=== PATIENT | male | born 1940 | race Caucasian/White ===

== ENCOUNTER 2016-07-25 15:09 | Emergency (ER) | payer MEDICARE, OTHER ==
[~2016-07-25] VITALS: Ht 177.8 cm; Wt 88.6 kg
[~2016-07-25 15:09] MED LIST: AMLO10 PO; CIAL5TAB PO; CLON0.1T PO; FERR325T PO; HYDR12.57 PO; LEVO.1 PO; MIRA25TA PO; OMEP20TA PO; REST30CA PO; TAMS5CAP PO; TRAM50TA PO
[2016-07-25 15:14] VITALS: BP 117/72; PULSE 88; RESP 16; TEMP 97.7; O2SAT 97
[2016-07-25] MEDS ORDERED: FURO1TAB62 PO (15:57)
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
[2016-10-03] MEDS ORDERED: CLON0.5T PO (11:26)
[2016-10-03] MEDS ORDERED: CARV12.52 PO (11:26)
[2016-10-03] MEDS ORDERED: DULO1CAP2 PO (11:26)
[2016-10-03] MEDS ORDERED: MIRT30TA PO (11:26)
[2016-10-03] MEDS ORDERED: POTA10TA2 PO (11:27)
[2016-10-03] MEDS ORDERED: FERR324T8 PO (11:27)
[2016-10-03] MEDS ORDERED: MIRA25TA PO (12:28)
[2016-10-03] MEDS ORDERED: HYDR2.5%T RECTAL (12:28)
[2016-10-17] MEDS ORDERED: AMLO5TAB2 PO (14:03)
== END 2016-07-25 16:35 | disposition home or self-care (01) ==
LOC: PHED 15:09
DX: S51.012A Laceration without foreign body of left elbow, initial encounter (principal); V00.831A Fall from motorized mobility scooter, initial encounter; Y92.531 Health care provider office as the place of occurrence of the external cause
CPT/HCPCS: 99282

== ENCOUNTER 2016-12-21 10:51 | Emergency (ER) | payer MEDICARE, OTHER ==
[~2016-12-21] VITALS: Ht 170.2 cm; Wt 100.0 kg
[~2016-12-21 10:51] MED LIST changes: -AMLO10 PO; +AMLO5TAB2 PO; +CARV12.52 PO; -CIAL5TAB PO; -CLON0.1T PO; +DULO1CAP2 PO; -FERR325T PO; -HYDR12.57 PO; +HYDR2.5%T RECTAL; +MIRT30TA PO; +POTA10TA2 PO; -TRAM50TA PO
[2016-12-21 10:55] VITALS: BP 128/66; PULSE 69; RESP 18; O2SAT 98
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
[2016-12-21] MEDS ORDERED: BUPIVACAINE HCL PF 0.5% 10 ML VIAL INFIL ONE (11:45)
[2016-12-21] MEDS ORDERED: LIDOCAINE HCL 1% 20 ML VIAL INFIL ONE (11:45)
[2016-12-21 11:52] LABS: AUTOMATED NEUTROPHIL # 7.4 TH/MM3 (1.8-7.7); BASOPHIL # 0.1 TH/MM3 (0-0.2); BASOPHIL % 0.9 % (0.0-2.0); EOSINOPHIL % 0.2 % (0.0-4.0); HEMATOCRIT 27.1 % (39.0-51.0); LYMPH % 12.6 % (9.0-44.0); LYMPHOCYTE # 1.1 TH/MM3 (1.0-4.8); MEAN CELL VOLUME 91.1 FL (80.0-100.0); MEAN CORPUSCULAR HEMOGLOBIN 29.7 PG (27.0-34.0); MEAN CORPUSCULAR HGB CONC 32.6 % (32.0-36.0); MONO % 5.3 % (0.0-8.0); PLATELET COUNT 118 TH/MM3 (150-450); RED BLOOD COUNT 2.98 MIL/MM3 (4.50-5.90); RED CELL DISTRIBUTION WIDTH 19.4 % (11.6-17.2); WHITE BLOOD COUNT 9.1 TH/MM3 (4.0-11.0)
[2016-12-21] MEDS ORDERED: BENA20TA PO (11:59)
[2016-12-21] MEDS ORDERED: FERR325T8 PO (11:59)
[2016-12-21] MEDS ORDERED: CALC500T35 PO (11:59)
[2016-12-21] MEDS ORDERED: AMLO2.5T PO (11:59)
[2016-12-21] MEDS ORDERED: MIRA3350 PO (11:59)
[2016-12-21] MEDS ORDERED: ASPI325T PO (12:00)
[2016-12-21 12:02] LABS: HEMO FLAGS AUTO DIFF
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
[2016-12-21 12:10] LABS: ALT (GPT) 29 U/L (12-78); ANION GAP 8 MEQ/L (5-15); AST (GOT) 36 U/L (15-37); BICARBONATE 23.4 MEQ/L (21.0-32.0); BLOOD UREA NITROGEN 35 MG/DL (7-18); CHLORIDE 111 MEQ/L (98-107); GLOMERULAR FILTRATION RATE 28 ML/MIN (>89); POTASSIUM 4.1 MEQ/L (3.5-5.1); SODIUM (NA) 142 MEQ/L (136-145)
[2016-12-21 12:12] LABS: ALKALINE PHOSPHATASE 227 U/L (45-117); TOTAL BILIRUBIN ADULT 0.3 MG/DL (0.2-1.0)
[2016-12-21 12:27] LABS: PLATELET ESTIMATE SMEAR LOW (NORMAL); PLATELET MORPHOLOGY ENLARGED (NORMAL); SCAN/DIFF AUTO DIFF CONFIRMED
[2016-12-21] MEDS ORDERED: MORPHINE SULFATE 4 MG/ML INJ IV PUSH ONE ×2 (12:45→14:00)
[2016-12-21 13:15] LABS: APTT (PATIENT) 27.7 SEC (24.3-30.1); INTERNATIONAL NORMALIZED RATIO 0.9 RATIO; PROTHROMBIN TIME - PATIENT 10.2 SEC (9.8-11.6)
[2016-12-21] MEDS ORDERED: SODIUM CHLOR 0.9% 250 ML INJ 250 ML IV ONE (13:15)
[2016-12-21] MEDS ORDERED: NORC5TAB PO (15:24)
[2016-12-21] MEDS ORDERED: CEPH-460 PO (15:26)
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
--- NOTE | 2016-12-26 08:51 | MP ---
cc: DIXIE MICHAELS M.D. DATE OF SURGERY 12/21/2016 PREOPERATIVE DIAGNOSIS An 8-cm laceration to the right ear. POSTOPERATIVE DIAGNOSIS An 8-cm laceration to the right ear. PROCEDURES Repair of laceration to right ear. ANESTHESIA Local. SURGEON Dixie Michaels MD INDICATIONS A 76-year-old male with injury to his right ear. FINDINGS At the completion of the procedure the wound had been repaired and dressed. OPERATIVE TIME One hour. PROCEDURE The operation was performed in the emergency room. The patient was placed on his side. The right ear was prepped with Betadine and draped the usual sterile fashion. Bupivacaine 0.5% plain with epinephrine was used to anesthetize the entire area. Once the anesthetic had taken effect, the wound was copiously irrigated with saline. The areas which had been lacerated were initially coapted using stay sutures to line up the border of the ear. The cartilage was completely lacerated. The wound was then repaired anteriorly and posteriorly using 6-0 and 5-0 nylon and Prolene sutures. This was done in interrupted and running fashion. Once the wound was completely repaired it was cleansed of the Betadine and blood and dressed with povidone-iodine ointment, Adaptic, 4x4s and a head bandage. The patient was discharge in satisfactory condition having tolerated the procedure well. Postoperative instructions include keeping the head elevated, keeping the area clean and dry and returning in several days for wound check. MD ANA ePrez/BRISSA /10:43 AM /8:41 AM [facility]
== END 2016-12-21 16:08 | disposition home or self-care (01) ==
LOC: NEPC 10:51
DX: S08.121A Partial traumatic amputation of right ear, initial encounter (principal); S01.01XA Laceration without foreign body of scalp, initial encounter; E78.5 Hyperlipidemia, unspecified; E03.9 Hypothyroidism, unspecified; I10 Essential (primary) hypertension; I25.10 Atherosclerotic heart disease of native coronary artery without angina pectoris; W05.2XXA Fall from non-moving motorized mobility scooter, initial encounter; Z79.82 Long term (current) use of aspirin
CPT/HCPCS: 13152; 13153; 70450; 80053; 85025; 85610; 85730; 86077; 86850; 86870; 86880; 86900; 86901; 86902; 96374; 96376; 99285; J2270; J7050

== ENCOUNTER 2017-01-29 18:53 | Inpatient (IN) | payer MEDICARE, OTHER ==
[~2017-01-29] VITALS: Ht 170.2 cm; Wt 103.0 kg
[~2017-01-29 18:53] MED LIST changes: +AMLO2.5T PO; -AMLO5TAB2 PO; +ASPI325T PO; +BENA20TA PO; +CALC500T35 PO; -DULO1CAP2 PO; +FERR325T8 PO; +MIRA3350 PO; -POTA10TA2 PO; -TAMS5CAP PO
[2017-01-29 19:05] VITALS: BP 153/73; PULSE 105; RESP 24; TEMP 100.1; O2SAT 93
--- NOTE | 2017-01-29 19:29 | PD ---
HPI Chief Complaint: Abdominal Pain Time Seen by Provider: 19:18 Travel History International Travel<30 days: No Contact w/Intl Traveler<30days: No Traveled to known affect area: No History of Present Illness HPI The patient is a 76 year old male who presents to the [facility] emergency department with a history of abdominal pain that reportedly according to ambulance services began 2 hours prior to arrival. The patient himself is unsure exactly when it began. The patient denies having any abdominal pain currently. The patient had one episode of vomiting prior to arrival. The patient does have a history of mild dementia according to ambulance services. The patient lives at home with a caregiver. The patient was noted prior to arrival to have a fever with a MAXIMUM TEMPERATURE of 102. The patient also was noted to have room air saturations are 91%. He reports that he has had a cough intermittently throughout the day today. According to ambulance services the patient has also had some constipation. He did move his bowels in small amount today. They report that his abdomen appears distended and rigid. The patient on arrival is pleasant and cooperative. On review of systems, the patient denies having any neck pain, chest pain, shortness of breath, diarrhea, urinary symptoms, or neurologic symptoms. The patient reports having chronic urinary incontinence. [facility] Past Medical History Narrative Medical The patient's past medical history is significant for hyperlipidemia, coronary artery disease, hypertension, history of Holland's esophagitis, acid reflux, diverticulitis, hypothyroid disorder, osteoarthritis Arthritis: Yes Autoimmune Disease: No Blood Disorders: No Heart Rhythm Problems: No Cancer: Yes (PROSTATE) Cardiovascular Problems: Yes High Cholesterol: Yes Chest Pain: No Congestive Heart Failure: No Cerebrovascular Accident: No Coronary Artery Disease: Yes Diabetes: No Diminished Hearing: Yes (BILATERAL HEARING AIDS) Endocrine: Yes Gastrointestinal Disorders: Yes (HOLLAND'S ESOPHAGUS, ACID REFLUX,GERD, DIVERTICULITIS) GERD: Yes Genitourinary: Yes (HX PROSTATE CANCER, INCONTINENCE) Headaches: Yes Hepatitis: No Hiatal Hernia: Yes Heparin Induced Thrombocytopen: No Hypertension: Yes Immune Disorder: No Implanted Vascular Access Dvce: No Musculoskeletal: Yes (OSTEOARTHRITIS , SPINAL STENOSIS) Neurologic: Yes (WEAK THIS VISIT) Psychiatric: No Reproductive: No Respiratory: No Immunizations Current: Yes Radiation Therapy: Yes (HX OF SEEDS) Sickle Cell Disease: No Thyroid Disease: Yes Ulcer: No Past Surgical History Narrative Surgical The patient's past surgical history is significant for bilateral hip replacements, surgery related to spinal stenosis, history of prostate seed placement related to prostate cancer, knee replacement, left carotid endarterectomy AICD: No Arteriovenous Shunt: No Endocrine Surgery: Yes (THYROIDECTOMY 2002) Eye Surgery: Yes (BILATERAL CATARACTS) Genitourinary Surgery: Yes (PROSTATE SEEDS) Insulin Pump: No Joint Replacement: Yes (TOTAL LEFT KNEE) Neurologic Surgery: Yes (LEFT CAROTID ARTERY ENDARTERECTOMY 1999) Pacemaker: No Thoracic Surgery: Yes (SPINAL STENOSIS SURGERY IN NOVEMBER) Other Surgery: Yes (KNEE REPLACEMENT , CAROTID ARTERY ) Social History Alcohol Use: Yes (" 1-3 BOURBONS A NIGHT" ) Tobacco Use: No Substance Use: No Allergies-Medications (Allergen,Severity, Reaction): Coded Allergies: hydrocodone (Verified Allergy, Severe, 12/29/16) adhesive (Verified Allergy, Unknown, 12/29/16) pt to pacu with redness noted to skin per computer numerical control operator pt appears to have allergy to adhesive tape spoke with pt, pt aware md made aware per computer numerical control operator, skin intact, per computer numerical control operator site to l chest area improving after pads removed Reported Meds & Prescriptions Reported Meds & Active Scripts Active Myrbetriq (Mirabegron) 25 Mg Tab 25 Mg PO DAILY Restoril (Temazepam) 30 Mg Cap 30 Mg PO HS PRN Reported Aspirin Unknown Strength Tab 1 Tab PO DAILY Miralax Powder (Polyethylene Glycol 3350 Powder) 17 Gm Powd 17 Gm PO EVERY OTHER DAY Mix and dissolve one measuring cap-ful (17 grams) in water or juice. Ferrous Sulfate 325 Mg (65 Mg Iron) Tablet 325 Mg PO DAILY Benazepril (Benazepril HCl) 20 Mg Tab 20 Mg PO DAILY Calcium (Oyster Shell) 500 Mg Tab 500 Mg PO BID Carvedilol 12.5 Mg Tab 6.25 Mg PO BID Mirtazapine 30 Mg Tab 30 Mg PO HS Omeprazole 20 Mg Tab 20 Mg PO DAILY Review of Systems Except as stated in HPI: all other systems reviewed are Neg General / Constitutional: Positive: Fever Eyes: No: Visual changes HENT: Positive: Congestion, No: Headaches Cardiovascular: No: Chest Pain or Discomfort Respiratory: Positive: Cough, No: Shortness of Breath Gastrointestinal: Positive: Nausea, Vomiting, Abdominal Pain, Constipation, Changes in Bowel Habits, No: Indigestion, Loss of Appetite Genitourinary: No: Dysuria Musculoskeletal: No: Pain Skin: No Rash Neurologic: No: Weakness, Focal Abnormalities, Change in Mentation, Slurred Speech, Sensory Disturbance Psychiatric: No: Depression Endocrine: No: Polydipsia Hematologic/Lymphatic: No: Easy Bruising Physical Exam Narrative General: The patient is a well-developed well-nourished male in no acute distress. Head and Neck exam: Head is normocephalic atraumatic. Eyes: EOMI, pupils are equal round and reactive to light. Nose: Midline septum with pink mucous membranes Mouth: Dentition unremarkable. Moist mucus membranes. Posterior oropharynx is not erythematous. No tonsillar hypertrophy. Uvula midline. Airway patent. Neck: No palpable lymphadenopathy. No nuchal rigidity. No thyromegaly. Cardiovascular: Sinus tachycardia in the low 100 with a 1/6 systolic murmur. No gallops or rubs. No pulse deficit to the extremities and simultaneous auscultation and palpation of his radial artery. Lungs: Clear to auscultation bilaterally. No wheezes, rhonchi, or rales. Abdomen: Distended with no tenderness on palpation of all 4 quadrants of the abdomen, decreased bowel sounds are audible. No guarding, rebound, or rigidity. No tenderness on palpation of McBurney's point. Negative Hyman's sign. Extremities: No clubbing or cyanosis. The patient has trace pedal edema bilateral lower extremities. 2+ pulses in all 4 extremities. No calf tenderness on palpation. Back: No costovertebral angle tenderness to palpation. Neurologic Exam: Grossly nonfocal. Skin Exam: No rash noted. Intact skin that is warm and dry. Data Data Last Documented VS Vital Signs Date Time Temp Pulse Resp B/P (MAP) Pulse Ox O2 Delivery O2 Flow Rate FiO2 01/29/17 19:50 98.9 72 20 125/70 (88) 100 2.00 Orders Orders Electrocardiogram (01/29/17 19:19) Complete Blood Count With Diff (01/29/17 19:19) Comprehensive Metabolic Panel (01/29/17 19:19) Troponin I (01/29/17 19:19) B-Type Natriuretic Peptide (01/29/17 19:19) Prothrombin Time / Inr (Pt) (01/29/17 19:19) Act Partial Throm Time (Ptt) (01/29/17 19:19) C-Reactive Protein (Crp) (01/29/17 19:19) Lipase (01/29/17 19:19) Urinalysis - C+S If Indicated (01/29/17 19:19) Magnesium (Mg) (01/29/17 19:19) Chest, Single Ap (01/29/17 19:19) Iv Access Insert/Monitor (01/29/17 19:19) Ecg Monitoring (01/29/17 19:19) Oximetry (01/29/17 19:19) Sodium Chlor 0.9% 250 Ml Inj (Ns 250 Ml (01/29/17 19:30) Sodium Chlor 0.9% 1000 Ml Inj (Ns 1000 M (01/29/17 19:30) Ondansetron Inj (Zofran Inj) (01/29/17 19:30) Acetaminophen (Tylenol) (01/29/17 19:30) Piperacil-Tazo 3.375 Gm Premix (Zosyn 3. (01/29/17 21:15) Vancomycin Inj (Vancomycin Inj) (01/29/17 21:15) Admit Order (Ed Use Only) (01/29/17 21:39) Ct Abd/Pel W/O Iv Contrast (01/29/17 19:19) Labs Laboratory Tests Test 01/29/17 19:50 White Blood Count 11.6 TH/MM3 Red Blood Count 3.25 MIL/MM3 Hemoglobin 9.6 GM/DL Hematocrit 29.4 % Mean Corpuscular Volume 90.6 FL Mean Corpuscular Hemoglobin 29.6 PG Mean Corpuscular Hemoglobin Concent 32.7 % Red Cell Distribution Width 19.0 % Platelet Count 136 TH/MM3 Mean Platelet Volume 6.5 FL Neutrophils (%) (Auto) 91.6 % Lymphocytes (%) (Auto) 3.8 % Monocytes (%) (Auto) 4.2 % Eosinophils (%) (Auto) 0.0 % Basophils (%) (Auto) 0.4 % Neutrophils # (Auto) 10.6 TH/MM3 Lymphocytes # (Auto) 0.4 TH/MM3 Monocytes # (Auto) 0.5 TH/MM3 Eosinophils # (Auto) 0.0 TH/MM3 Basophils # (Auto) 0.1 TH/MM3 CBC Comment DIFF FINAL Differential Comment Prothrombin Time 10.3 SEC Prothromb Time International Ratio 0.9 RATIO Activated Partial Thromboplast Time 25.2 SEC Blood Urea Nitrogen 34 MG/DL Creatinine 2.35 MG/DL Random Glucose 99 MG/DL Total Protein 8.2 GM/DL Albumin 3.5 GM/DL Calcium Level 8.3 MG/DL Magnesium Level 1.9 MG/DL Alkaline Phosphatase 200 U/L Aspartate Amino Transf (AST/SGOT) 45 U/L Alanine Aminotransferase (ALT/SGPT) 24 U/L Total Bilirubin 0.5 MG/DL Sodium Level 142 MEQ/L Potassium Level 3.8 MEQ/L Chloride Level 107 MEQ/L Carbon Dioxide Level 22.4 MEQ/L Anion Gap 13 MEQ/L Estimat Glomerular Filtration Rate 27 ML/MIN Troponin I LESS THAN 0.02 NG/ML C-Reactive Protein 2.30 MG/DL B-Type Natriuretic Peptide 89 PG/ML Lipase 51 U/L MDM Medical Decision Making Medical Screen Exam Complete: Yes Emergency Medical Condition: Yes Medical Record Reviewed: Yes Interpretation(s) Last Impressions Chest X-Ray 01/29/171918 Signed Impressions: Service Date/Time: Sunday, January 29, 2017 19:42 - CONCLUSION: Partially consolidative infiltrate in the left lower lobe. Mason Coelho MD Abdomen/Pelvis CT 01/29/171918 Signed Impressions: Service Date/Time: Sunday, January 29, 2017 21:58 - CONCLUSION: 1. Stable appearance to the 4.3 cm smooth margin cyst adjacent to the head of the pancreas. 2. Stable small hiatus hernia. 3. No acute findings. Mason Coelho MD Differential Diagnosis Bowel obstruction, versus diverticulitis, versus colitis, versus constipation, versus ileus Narrative Course During the course of the patients emergency department visit, the patients history, examination, and differential diagnosis were reviewed with the patient. The patient had IV access obtained and blood work sent for analysis. The patient states on a radiographer cardiac catheterization with oximetry and blood pressure monitoring. A chest x-ray has been ordered, CT scan of the abdomen and pelvis has been ordered. The patient had an ECG done on arrival. The patient's ECG reveals a sinus tachycardia with a first-degree AV block, incomplete right bundle branch block, left anterior fascicular block, no acute ST segment elevation or depression, T waves are inverted in V1. The patient was initially provided normal saline IV fluids, Zofran 4 mg IV, Tylenol for fever. The patient was provided a liter of normal saline by ambulance services prior to arrival, therefore the patient was initially started on maintenance fluids in spite of a concern for the patient having positive Sirs criteria and an infectious source is wishes for sepsis as the patient does have a history of coronary artery disease and fluid overload was a possibility. The patient was started on Zosyn 3.375 g IV, vancomycin 1 g IV. The patients laboratory studies were reviewed and remarkable for a white count of 11.6, hemoglobin 9.6, platelets 136 with 91.6 neutrophils, CMP is remarkable for a BUN of 34, creatinine 2.35 in a patient with a history of renal insufficiency, calcium 8.3, AST 45, alkaline phosphatase 200, troponin I less than 0.02, CRP 2.30, lipase 51, BNP is 89. PT PTT within normal limits. Urinalysis shows moderate occult blood, moderate leukocyte esterase, 98 rbc's, 44 wbc's, rare bacteria, culture indicated. Radiology studies were reviewed and remarkable for a chest x-ray that is remarkable for a left lower lobe infiltrate, CT scan of the abdomen and pelvis shows a stable cystic structure next to the pancreas, no other acute abnormality. The patients results were discussed with the patient, including the plan of care. I explained that further testing and/ or monitoring is indicated based on the patients history, examination, and/ or laboratory findings. Therefore, I recommended admission for additional evaluation. The patient expressed understanding and was agreeable with this plan. The patient was admitted to the hospital in guarded condition and sent to a bed under the care of Dr. Silver. Sepsis Criteria SIRS Criteria (2 or more): Heart rate over 90, RR > 20 or PaCO2 < 32 Physician Communication Physician Communication The patient's case was discussed with Dr. Silver who did agree to admit the patient for further evaluation and treatment at this time. Diagnosis Primary Impression: Pneumonia Qualified Codes: J18.1 - Lobar pneumonia, unspecified organism Additional Impressions: Abdominal pain Qualified Codes: R10.84 - Generalized abdominal pain UTI (lower urinary tract infection) Admitting Information Admitting Physician Requests: Admit Phuong Nicolas MD Jan 29, 2017 19:29
[2017-01-29] MEDS ORDERED: SODIUM CHLOR 0.9% 1000 ML INJ 1,000 ML IV SCH (19:30)
[2017-01-29] MEDS ORDERED: SODIUM CHLOR 0.9% 250 ML INJ 250 ML IV ONE (19:30)
[2017-01-29] MEDS ORDERED: ONDANSETRON HCL 4 MG/2 ML VIAL IV PUSH ONE (19:30)
[2017-01-29] MEDS ORDERED: ACETAMINOPHEN 325 MG TAB PO ONE (19:30)
--- NOTE | 2017-01-29 19:49 | RADRPT ---
EXAM DATE/TIME: 01/29/2017 19:42 [facility] COMPARISON: CHEST SINGLE AP, October 13, 2014, 23:26. CHEST SINGLE AP, November 01, 2015, 14:13. INDICATIONS : Shortness of breath, congestion, abdominal pain and vomiting. MEDICAL HISTORY : Cardiovascular disease. Cerebrovascular disease. Hypercholesterolemia.Hypertension. Hiatal hernia. SURGICAL HISTORY : Carotid endarterectomy. Thyroidectomy. ENCOUNTER: Initial ACUITY: 1 day PAIN SCORE: 4/10 LOCATION: Bilateral abdomen. FINDINGS: There is patchy infiltrates in the retrocardiac region with air bronchograms, but no obscuration of t he left hemidiaphragm. The right lung is clear. 12 mm calcified granuloma lateral right upper lobe is unchanged from prior exam at 2014. The heart is normal size. CONCLUSION: Partially consolidative infiltrate in the left lower lobe. Mason Coelho MD on January 29, 2017 at 19:46 Board Certified Radiologist. This report was verified electronically.
[2017-01-29 19:50] VITALS: BP 125/70; TEMP 98.9
[2017-01-29 20:32] LABS: AUTOMATED NEUTROPHIL # 10.6 TH/MM3 (1.8-7.7); BASOPHIL # 0.1 TH/MM3 (0-0.2); BASOPHIL % 0.4 % (0.0-2.0); HEMATOCRIT 29.4 % (39.0-51.0); HEMO FLAGS DIFF FINAL; LYMPH % 3.8 % (9.0-44.0); LYMPHOCYTE # 0.4 TH/MM3 (1.0-4.8); MEAN CELL VOLUME 90.6 FL (80.0-100.0); MEAN CORPUSCULAR HEMOGLOBIN 29.6 PG (27.0-34.0); MEAN CORPUSCULAR HGB CONC 32.7 % (32.0-36.0); MONO % 4.2 % (0.0-8.0); NEUT % 91.6 % (16.0-70.0); PLATELET COUNT 136 TH/MM3 (150-450); RED BLOOD COUNT 3.25 MIL/MM3 (4.50-5.90); WHITE BLOOD COUNT 11.6 TH/MM3 (4.0-11.0)
[2017-01-29 20:47] LABS: APTT (PATIENT) 25.2 SEC (24.3-30.1); INTERNATIONAL NORMALIZED RATIO 0.9 RATIO; PROTHROMBIN TIME - PATIENT 10.3 SEC (9.8-11.6)
[2017-01-29 20:54] LABS: ALT (GPT) 24 U/L (12-78)
[2017-01-29 20:57] LABS: ALKALINE PHOSPHATASE 200 U/L (45-117); TOTAL BILIRUBIN ADULT 0.5 MG/DL (0.2-1.0)
[2017-01-29 21:07] LABS: ANION GAP 13 MEQ/L (5-15); AST (GOT) 45 U/L (15-37); BICARBONATE 22.4 MEQ/L (21.0-32.0); BLOOD UREA NITROGEN 34 MG/DL (7-18); CHLORIDE 107 MEQ/L (98-107); GLOMERULAR FILTRATION RATE 27 ML/MIN (>89); MAGNESIUM 1.9 MG/DL (1.5-2.5); POTASSIUM 3.8 MEQ/L (3.5-5.1); SODIUM (NA) 142 MEQ/L (136-145)
[2017-01-29] MEDS ORDERED: PIPERACIL-TAZO 3.375 GM PREMIX 50 ML IV ONE (21:15)
[2017-01-29] MEDS ORDERED: VANCOMYCIN INJ 1,000 MG in SODIUM CHLOR 0.9% 250 ML INJ 250 ML IV ONE (21:15)
--- NOTE | 2017-01-29 22:32 | RADRPT ---
EXAM DATE/TIME: 01/29/2017 21:58 [facility] COMPARISON: CT ABDOMEN & PELVIS W/O CONTRAST, February 04, 2015, 17:50. INDICATIONS : Abdominal pain. ORAL CONTRAST: No oral contrast ingested. RADIATION DOSE: 25.87 CTDIvol (mGy) ; Patient body habitus MEDICAL HISTORY : Cardiovascular disease. Hypertension. Prostate cancer. Spinal stenosis. SURGICAL HISTORY : Endartectomy. ENCOUNTER: Initial ACUITY: 1 day PAIN SCALE: 6/10 LOCATION: abdomen TECHNIQUE: Volumetric scanning of the abdomen and pelvis was performed. Using automated exposure control and ad justment of the mA and/or kV according to patient size, radiation dose was kept as low as reasonably achievable to obtain optimal diagnostic quality images. DICOM format image data is available electro nically for review and comparison. FINDINGS: LOWER LUNGS: The visualized lower lungs are clear. Stable small hiatus hernia. LIVER: Homogeneous density without lesion for noncontrast technique. There is no dilation of the biliary tr ee. No calcified gallstones. SPLEEN: Normal size without lesion. PANCREAS: Stable smooth margin cyst adjacent to the uncinate process of the pancreas with CT density characteri stic of water and measuring 4.3 cm. There is fatty atrophy of the head, body and tail of the pancrea s. KIDNEYS: Normal in size and shape. There is no mass, stone, or hydronephrosis. Stable exophytic 1.6 cm hyper dense cyst mid pole right kidney. ADRENAL GLANDS: Within normal limits. VASCULAR: There is no aortic aneurysm. BOWEL/MESENTERY: No dilated loops of small or large bowel. ABDOMINAL WALL: Within normal limits. RETROPERITONEUM: There is no lymphadenopathy. BLADDER: No wall thickening or mass. REPRODUCTIVE: Multiple metallic prostate seeds. INGUINAL: There is no lymphadenopathy or hernia. MUSCULOSKELETAL: Stable degenerative changes in the posterior elements of the lower lumbar spine. CONCLUSION: 1. Stable appearance to the 4.3 cm smooth margin cyst adjacent to the head of the pancreas. 2. Stable small hiatus hernia. 3. No acute findings. Mason Coelho MD on January 29, 2017 at 22:26 Board Certified Radiologist. This report was verified electronically.
[2017-01-29] MEDS ORDERED: THIAMINE IV SCH (22:36)
[2017-01-29] MEDS ORDERED: SODIUM CHLOR 0.45% IV SCH (22:36)
[2017-01-29] MEDS ORDERED: NALOXONE HCL 0.4 MG/ML AMP IV PUSH PRN (22:45)
[2017-01-29] MEDS ORDERED: MAGNESIUM HYDROXIDE SUSP 30 ML CUP PO PRN (22:45)
[2017-01-29] MEDS ORDERED: SODIUM CHLORIDE 0.9% FLUSH 10 ML FLUSH IV FLUSH PRN (22:45)
[2017-01-29] MEDS ORDERED: cloNIDine HCL 0.1 MG TAB PO PRN (23:00)
[2017-01-30] VITALS (15 sets, daily range): BP systolic 124–142; BP diastolic 63–76; PULSE 61–80; RESP 16–20; TEMP 97.7–100.1; O2SAT 93–100
[2017-01-30] MEDS: traZODone HCL 100 MG TAB PO SCH ×2 (00:45→21:33)
[2017-01-30] MEDS: ENOXAPARIN SODIUM 30 MG/0.3 ML SYRINGE SQ SCH ×2 (00:45→23:44)
[2017-01-30] MEDS: CARVEDILOL 6.25 MG TAB PO SCH ×3 (00:45→21:34)
[2017-01-30] MEDS: MIRTAZAPINE 15 MG TAB PO SCH ×2 (00:45→21:33)
[2017-01-30] MEDS: LEVOFLOXACIN 500 MG PREMIX INJ 100 ML IV SCH ×2 (00:47→23:44)
[2017-01-30] MEDS: clonazePAM 0.5 MG TAB PO SCH ×4 (00:50→21:33)
[2017-01-30] MEDS: SODIUM CHLORIDE 0.9% FLUSH 10 ML FLUSH IV FLUSH SCH ×3 (02:58→21:33)
[2017-01-30] MEDS: LEVOTHYROXINE SODIUM 25 MCG TAB PO SCH (06:51)
[2017-01-30] MEDS: LEVOTHYROXINE SODIUM 112 MCG TAB PO SCH (06:52)
[2017-01-30 07:28] LABS: AUTOMATED NEUTROPHIL # 8.1 TH/MM3 (1.8-7.7); BASOPHIL # 0.1 TH/MM3 (0-0.2); BASOPHIL % 1.1 % (0.0-2.0); EOSINOPHIL % 0.1 % (0.0-4.0); HEMO FLAGS DIFF FINAL; LYMPH % 11.2 % (9.0-44.0); LYMPHOCYTE # 1.1 TH/MM3 (1.0-4.8); MEAN CELL VOLUME 91.9 FL (80.0-100.0); MEAN CORPUSCULAR HGB CONC 33.7 % (32.0-36.0); MONO % 4.6 % (0.0-8.0); PLATELET COUNT 112 TH/MM3 (150-450); RED BLOOD COUNT 2.72 MIL/MM3 (4.50-5.90); RED CELL DISTRIBUTION WIDTH 18.9 % (11.6-17.2); WHITE BLOOD COUNT 9.8 TH/MM3 (4.0-11.0)
[2017-01-30] MEDS: LORazepam 0.5 MG TAB PO SCH ×3 (07:51→23:43)
[2017-01-30 08:01] LABS: BICARBONATE 23.2 MEQ/L (21.0-32.0); POTASSIUM 3.4 MEQ/L (3.5-5.1)
[2017-01-30] MEDS ORDERED: [UNRECOGNIZED DRUG - OTHER] PO SCH (09:00)
[2017-01-30] MEDS ORDERED: MIRABEGRON PO SCH (09:00)
--- NOTE | 2017-01-30 09:11 | MH ---
cc: SANTOS BRAR M.D. DATE OF ADMISSION: 01/29/2017 ADMISSION DIAGNOSIS Pneumonia. HISTORY OF PRESENT ILLNESS This 76-year-old white male, well-known to the undersigned physician, presented to the emergency department on the day of admission with a complaint of a wheeze. He states that he had no chest pain, no shortness of breath, palpitations, fever, chills, night sweats, nausea, vomiting, headache, weakness, diminished appetite. He has had some constipation recently but took a laxative and had a large bowel movement overnight. The patient resides at home with 24-hour caregivers due to some mild dementia and limited mobility. He also has an alcohol abuse problem for which he is receiving treatment through an student career development specialist. The patient has continues to consume 2-4 ounces of alcohol and a day. PAST MEDICAL HISTORY Significant for - 1. History of lower gastrointestinal hemorrhage in 2013 requiring transfusions. 2. History of osteoarthritis. 3. History of prostate cancer with radium seed implants. 4. He has chronic urinary incontinence for which he sees Urology. 5. He has gastroesophageal reflux disease. 6. Hypertension. 7. Postsurgical hypothyroidism. 8. Chronic kidney disease stage III. 9. Insomnia. 10. Vitamin D deficiency. 11. Hyperlipidemia. 12. Gastroesophageal reflux disease with Henley's esophagus. 13. Lumbar disk disease with spinal stenosis. 14. Anemia due to chronic kidney disease. 15. Alcoholism. PAST SURGICAL HISTORY 1. Status post thyroidectomy in 2002. 2. Status post left carotid endarterectomy in 1999. 3. Status post left shoulder surgery in 2013. 4. Status post spinal surgery at the [facility] in 2015. CURRENT MEDICATIONS 1. Levofloxacin 137 mcg daily. 2. Duloxetine 30 mg daily. 3. Escitalopram 10 mg daily. 4. Mirtazapine 30 mg at bedtime. 5. Lorazepam 1 mg twice daily as needed for anxiety. 6. Clonazepam 0.5 mg twice daily. 7. Myrbetriq 25 mg daily. 8. Tamsulosin 0.4 mg at bedtime. 9. Rosuvastatin 20 mg daily. 10. Ferrous sulfate 325 mg twice daily. 11. Omeprazole 20 mg daily. 12. Carvedilol 6.25 mg twice. 13. Amlodipine 5 mg daily. 14. Potassium chloride ER 10 mEq daily. 15. Furosemide 20 mg daily. 16. Naltrexone 50 mg daily. ALLERGIES HYDROCODONE which caused itching. FAMILY HISTORY Noncontributory SOCIAL HISTORY He is . He lives at home. He has 24-hour caregivers. He does not smoke. He does drink alcohol. He has a history of alcohol abuse. He is currently drinking 2-4 ounces of alcohol daily but greater amounts intermittently. REVIEW OF SYSTEMS Negative except as outlined above. PHYSICAL EXAMINATION VITAL SIGNS: Upon arrival to the emergency department, blood pressure was 153/73 with a heart rate of 105, respirations 24, temperature 100.1 degrees Fahrenheit, oxygen saturation on room air was 93%. At the current time the patient's blood pressure is 133/69 with heart rate of 66, respirations are 20, temperature 98 degrees Fahrenheit. Oxygen saturation on 2 liters per minute per nasal cannula is 95%. GENERAL: In general this is a morbidly obese elderly white male lying in bed in no acute distress. HEENT: Pupils equal, round, react to light. Extraocular movements intact. Sclerae anicteric. Conjunctivae pink. Nares patent without discharge. Mouth reveals moist mucous membranes. No erythema or exudates. Dentition is good. NECK: Supple without lymphadenopathy, JVD, bruits or thyromegaly. CARDIOVASCULAR: Regular rate and rhythm without murmurs, rubs or gallops. LUNGS: Clear to auscultation without wheezes, rhonchi or rales. ABDOMEN: Obese, moderately distended, soft, nontender. Bowel sounds active. No masses. No HSM. No CVAT. & RECTAL: Deferred. LOWER EXTREMITIES: Reveal no appreciable edema. No calf tenderness. No Homans' sign. 2+ pulses. NEUROLOGIC EXAM: The patient is awake, alert, oriented to person and place but not to time. Speech intact. Cranial nerves intact. No lateralizing deficits. Mood good. Affect appropriate. The patient has some mild short-term memory deficits. The gait was not tested. SKIN: Warm and dry. LABORATORY DATA White blood cell count 11.6, hemoglobin 9.6, hematocrit 29.4, platelet count 136,000. White blood count differential with 91.6 polys and 30.8 lymphocytes. The INR is 0.9, APTT 25.2. The comprehensive metabolic profile is significant for a BUN of 34, creatinine of 2.35. The AST was mildly elevated at 45. Magnesium was normal at 1.9. C-reactive protein was 2.3. Troponin less than 0.02. Alkaline phosphatase elevated at 200, lipase low at 51. X-RAYS The chest x-ray revealed partially consolidated infiltrate in the left lower lobe. CT scan of the abdomen and pelvis revealed stable appearance of a 4.3 cm smooth margined cyst adjacent to the head of the pancreas, stable small hiatal hernia. No acute findings. EKG Revealed sinus tachycardia with a rate of 102 beats per minute, first-degree AV block, incomplete right bundle branch block, left anterior fascicular block. No prior EKG available at this time for comparison. IMPRESSION AND PLAN 1. This is a 76-year white male who presented with complaint of a wheeze and no other specific complaint. In the emergency department he was found to have a low grade temperature elevation, mildly elevated white blood cell count and a left lower lobe consolidation on chest x-ray. He will be admitted for pneumonia, placed on IV antibiotics. We will check a CT scan to further evaluate this left lower lobe infiltrative process. The patient currently appears to be stable. He was initially admitted into the step-down unit but we will transfer him to the floor today. I have provided him with some IV fluids as his BUN and creatinine are higher than they had been recently suggestive of some mild intravascular volume depletion. 2. Hypertension. The patient's blood pressure is under adequate control at this time with current medication regimen. We will follow. 3. Insomnia. The patient has chronic insomnia. He is currently receiving trazodone and clonazepam. He states he did sleep better last night. 4. History of chronic kidney disease Stage III. We will monitor BUN and creatinine. 5. Anemia due to chronic kidney disease. We will follow H&H. Anticipates some decrease due to dilutional effect. Recently the patient's hemoglobin has been closer to 8.7 so I anticipated a decrease over the next 24 hours with the IV fluids. He was scheduled to receive Procrit injection this week 6. Hypothyroidism. Recent TSH was elevated now. As an outpatient. His dosage of levofloxacin was just increased to 137 mcg daily. We will continue and plans are to check the laboratory studies again in about 6-8 weeks. 7. Gastroesophageal reflux disease with Henley's esophagus. The patient was placed on pantoprazole as omeprazole is not formulary. 8. History of alcohol abuse. The patient is going to be maintained on clonazepam I have increased his dose every 8 hours to help reduce the risk of withdrawal. I have given him thiamine in his IV fluids. We will add folic acid and will monitor for any other signs or symptoms of withdrawal. MD DIANNA Garcia/BRISSA /8:22 AM /8:46 AM
[2017-01-30] MEDS: LISINOPRIL 20 MG TAB PO SCH (10:40)
[2017-01-30] MEDS: DULoxetine HCl DR 30 MG CAP PO SCH (10:41)
[2017-01-30] MEDS: POTASSIUM CHLORIDE 10 MEQ CONTROLLED RELEASE TAB PO SCH ×2 (10:41→21:33)
[2017-01-30] MEDS: DOCUSATE SODIUM 50 MG/SENNA 8.6 MG TAB PO SCH ×2 (10:41→21:00)
[2017-01-30] MEDS: FOLIC ACID 1 MG TAB PO SCH (10:41)
[2017-01-30] MEDS: ASPIRIN 81 MG CHEW TAB PO SCH (10:41)
[2017-01-30] MEDS: POLYETHYLENE GLYCOL 17 GM PKG PO SCH (10:42)
[2017-01-30] MEDS: PANTOPRAZOLE SOD 40 MG DELAYED RELEASE TAB PO SCH (10:42)
[2017-01-30 18:24] LABS: BACTERIA, URINE RARE /hpf; BLOOD, URINE MOD (NEG); COMMENT (UR) CULTURE INDICATED; CULTURE IF INDICATED CULTURE INDICATED; GLUCOSE,URINE NEG (NEG); KETONE, URINE NEG (NEG); NITRITE,URINE NEG (NEG); URINE COLOR YELLOW (YELLW/STRAW)
--- NOTE | 2017-01-30 19:32 | EKG ---
Date Performed: 01/29/2017 Time Performed: 19:44:28 PTAGE: 76 years EKG: SINUS TACHYCARDIA WITH FIRST DEGREE AV BLOCK LOW QRS VOLTAGE IN PRECORDIAL LEADS INCOMPLETE RIGHT BUNDLE BRANCH BLOCK LEFT ANTERIOR FASCICULAR BLOCK POSSIBLE ANTERIOR MYOCARDIAL INFARCTION ABN ORMAL ECG PREVIOUS TRACING : 01/07/2016 07.41 Compared to prior tracing no significant change DOCTOR: Norman Wilson Interpretating Date/Time 01/30/2017 19:30:43
[2017-01-30] MEDS: TAMSULOSIN HCL 0.4 MG CAP PO SCH (21:33)
--- NOTE | 2017-01-30 22:15 | RADRPT ---
EXAM DATE/TIME: 01/30/2017 20:55 [facility] COMPARISON: CT ABDOMEN & PELVIS W/O CONTRAST, February 04, 2015, 17:50. INDICATIONS : Evaluate for pnuemonia. RADIATION DOSE: 9.13 CTDIvol (mGy) MEDICAL HISTORY : Hypertension. Carcinoma, prostate. Hernia, hiatal. SURGICAL HISTORY : Thyroidectomy. Carotid endarterectomy. Spinal stenosis surgery ENCOUNTER: Initial ACUITY: 1 day PAIN SCALE: 4/10 LOCATION: Bilateral chest TECHNIQUE: Volumetric scanning of the chest was performed. Using automated exposure control and adjustment of t he mA and/or kV according to patient size, radiation dose was kept as low as reasonably achievable to obtain optimal diagnostic quality images. DICOM format image data is available electronically for r eview and comparison. Follow-up recommendations for detected pulmonary nodules are based at a minimum on nodule size and pa tient risk factors according to Fleischner Society Guidelines. FINDINGS: LUNGS: There is increased linear density seen at the lung bases bilaterally likely relate to scarring or ate lectasis. There some metallic density at the lower right lung which could be from prior lung surgery if the patient has that history. If the patient has not had lung surgery, a these metallic densities could be prostate radiation seeds that have embolized the lungs. Focal areas of alveolar consolidatio n are not clearly seen. PLEURAE: There is no pleural thickening or pleural effusion. MEDIASTINUM: The heart and great vessels demonstrate no acute abnormality. There is no mediastinal or hilar lymph adenopathy. Coronary artery calcifications are present. AXILLAE: Within normal limits. No lymphadenopathy. MUSCULOSKELETAL: There is a focal area of sclerosis at the right posterior sixth rib and a smaller area of focal scler osis at the lateral right ninth rib. The focal lesion at the right ninth rib was seen on a prior CT e xamination the abdomen. The sixth rib lesion was not imaged on the prior CT of the abdomen. MISCELLANEOUS: The visualized upper abdominal organs demonstrate no acute abnormality. CONCLUSION: 1. Linear suspected atelectasis or scarring at the lung bases. 2. Small metallic foci at the right lung base which were present previously. These could be embolized prostate radiation seeds. Unusual lung jessica from prior lung surgery could have a similar appearan ce but embolized prostate radiation seeds are thought more likely. 3. Coronary artery calcifications. 4. 2 focal sclerotic rib lesions. The night rib lesion was seen previously on CT examination the abdo men. Kentrell Perez MD on January 30, 2017 at 22:05 Board Certified Radiologist. This report was verified electronically.
[2017-01-30] MEDS: AZITHROMYCIN INJ 500 MG in SODIUM CHLOR 0.9% 250 ML INJ 250 ML IV SCH (23:46)
[2017-01-31] VITALS (8 sets, daily range): BP systolic 125–168; BP diastolic 61–77; PULSE 62–70; RESP 18–20; TEMP 97.3–98.4; O2SAT 95–98
[2017-01-31] MEDS: AZITHROMYCIN INJ 500 MG in SODIUM CHLOR 0.9% 250 ML INJ 250 ML IV SCH (01:17)
[2017-01-31] MEDS: LEVOTHYROXINE SODIUM 25 MCG TAB PO SCH (06:47)
[2017-01-31] MEDS: LEVOTHYROXINE SODIUM 112 MCG TAB PO SCH (06:47)
[2017-01-31] MEDS: LORazepam 0.5 MG TAB PO SCH ×3 (06:47→22:31)
[2017-01-31] MEDS: clonazePAM 0.5 MG TAB PO SCH ×3 (06:47→22:31)
[2017-01-31 08:12] LABS: BASOPHIL # 0.1 TH/MM3 (0-0.2); BASOPHIL % 1.2 % (0.0-2.0); EOSINOPHIL % 0.3 % (0.0-4.0); HEMATOCRIT 25.3 % (39.0-51.0); LYMPH % 15.6 % (9.0-44.0); MEAN CELL VOLUME 91.1 FL (80.0-100.0); MEAN CORPUSCULAR HEMOGLOBIN 30.3 PG (27.0-34.0); MEAN CORPUSCULAR HGB CONC 33.3 % (32.0-36.0); MONO % 4.9 % (0.0-8.0); PLATELET COUNT 98 TH/MM3 (150-450); RED BLOOD COUNT 2.78 MIL/MM3 (4.50-5.90); RED CELL DISTRIBUTION WIDTH 18.6 % (11.6-17.2); WHITE BLOOD COUNT 6.4 TH/MM3 (4.0-11.0)
[2017-01-31 08:22] LABS: HEMO FLAGS AUTO DIFF
[2017-01-31 09:00] LABS: BICARBONATE 24.1 MEQ/L (21.0-32.0); POTASSIUM 3.7 MEQ/L (3.5-5.1)
[2017-01-31] MEDS: POLYETHYLENE GLYCOL 17 GM PKG PO SCH (09:00)
[2017-01-31] MEDS: DOCUSATE SODIUM 50 MG/SENNA 8.6 MG TAB PO SCH (09:00)
[2017-01-31] MEDS: LISINOPRIL 20 MG TAB PO SCH (09:06)
[2017-01-31] MEDS: CARVEDILOL 6.25 MG TAB PO SCH ×2 (09:06→20:17)
[2017-01-31] MEDS: [UNRECOGNIZED DRUG - OTHER] PO SCH (09:06)
[2017-01-31] MEDS: DULoxetine HCl DR 30 MG CAP PO SCH (09:06)
[2017-01-31] MEDS: PANTOPRAZOLE SOD 40 MG DELAYED RELEASE TAB PO SCH (09:06)
[2017-01-31] MEDS: FOLIC ACID 1 MG TAB PO SCH (09:06)
[2017-01-31] MEDS: POTASSIUM CHLORIDE 10 MEQ CONTROLLED RELEASE TAB PO SCH ×2 (09:06→20:16)
[2017-01-31] MEDS: ASPIRIN 81 MG CHEW TAB PO SCH (09:06)
[2017-01-31] MEDS: MIRABEGRON PO SCH (09:06)
[2017-01-31] MEDS: SODIUM CHLORIDE 0.9% FLUSH 10 ML FLUSH IV FLUSH SCH ×2 (09:07→20:18)
[2017-01-31 09:14] LABS: PLATELET ESTIMATE SMEAR LOW (NORMAL); PLATELET MORPHOLOGY NORMAL (NORMAL); SCAN/DIFF AUTO DIFF CONFIRMED
[2017-01-31 09:24] LABS: CALCIUM-PROTEIN CORRECTED 7.5 MG/DL (8.5-10.1)
--- NOTE | 2017-01-31 12:50 | HHI.PR ---
Subjective Remarks The patient reports that he has no chest pain, shortness of breath, nausea or vomiting. Oral intake is good. Having daily bowel movements. Was not out of bed yesterday as required max assist with bed mobility. Urine output is good. Denies dysuria. Blood pressure under adequate control. The patient's oxygen saturations in room air are adequate. Current Medications Medications (Trade) Dose Ordered Sig/Yovanny Route Start Time Stop Time Status Last Admin (NS Flush) 2 ml UNSCH PRN IV FLUSH 01/29/17 22:45 (NS Flush) 2 ml BID IV FLUSH 01/29/17 22:45 01/31/17 09:07 (Lovenox Inj) 30 mg Q24H SQ 01/29/17 23:00 01/30/17 23:44 (Narcan Inj) 0.4 mg UNSCH PRN IV PUSH 01/29/17 22:45 (Aurelia-Colace) 1 tab BID PO 01/30/17 09:00 01/30/17 10:41 (Milk Of Magnesia Liq) 30 ml Q12H PRN PO 01/29/17 22:45 (Miralax) 17 gm DAILY PO 01/30/17 09:00 01/30/17 10:42 Azithromycin 500 mg/Sodium Chloride 250 ml @ 250 mls/hr Q24H IV 01/30/17 00:00 01/31/17 01:17 Levofloxacin/ Dextrose 100 ml @ 100 mls/hr Q24H IV 01/29/17 23:00 01/30/17 23:44 (Ativan) 0.5 mg Q8HR PO 01/30/17 06:00 01/31/17 06:47 (KlonoPIN) 0.5 mg Q8HR PO 01/29/17 22:45 01/31/17 06:47 (Prinivil) 20 mg DAILY PO 01/30/17 09:00 01/31/17 09:06 (Coreg) 6.25 mg BID PO 01/29/17 22:45 01/31/17 09:06 (Remeron) 30 mg HS PO 01/29/17 22:45 01/30/17 21:33 (Aspirin Chew) 81 mg DAILY PO 01/30/17 09:00 01/31/17 09:06 (Synthroid) 112 mcg DAILY@0700 PO 01/30/17 07:00 01/31/17 06:47 (Protonix) 40 mg DAILY PO 01/30/17 09:00 01/31/17 09:06 (Desyrel) 100 mg HS PO 01/29/17 23:00 01/30/17 21:33 (Cymbalta Dr) 30 mg DAILY PO 01/30/17 09:00 01/31/17 09:06 (Flomax) 0.4 mg HS PO 01/30/17 21:00 01/30/17 21:33 (Catapres) 0.1 mg Q6H PRN PO 01/29/17 23:00 (Synthroid) 25 mcg DAILY@0700 PO 01/30/17 07:00 01/31/17 06:47 (KCl) 10 meq BID PO 01/30/17 09:00 01/31/17 09:06 (Folate) 1 mg DAILY PO 01/30/17 09:00 01/31/17 09:06 Patient Own Medication PT OWN MED: MYRBETRIQ (MIRABEGR... DAILY PO 01/31/17 09:00 01/31/17 09:06 Objective Vital Signs Date Time Temp Pulse Resp B/P (MAP) Pulse Ox O2 Delivery O2 Flow Rate FiO2 01/31/17 08:00 97.5 65 20 168/74 (105) 97 01/31/17 08:00 65 01/31/17 08:00 Room Air 01/31/17 00:49 95 01/31/17 00:00 97.7 62 18 125/61 (82) 96 01/31/17 00:00 97.3 70 18 156/74 (101) 97 01/30/17 20:00 98.2 62 20 124/63 (83) 96 01/30/17 20:00 Room Air 01/30/17 20:00 61 01/30/17 16:30 68 01/30/17 16:00 100.1 73 18 142/66 (91) 94 01/30/17 14:00 68 01/30/17 13:00 70 I/O 01/30/17 01/30/17 01/30/17 01/31/17 01/31/17 01/31/17 07:00 15:00 23:00 07:00 15:00 23:00 Intake Total 1325 ml 400 ml 590 ml Balance 1325 ml 400 ml 590 ml Intake Oral 240 ml 240 ml IV Total 1085 ml 400 ml 350 ml # Voids 2 2 3 # Bowel Movements 1 3 2 General: Morbidly obese elderly white male lying in bed in no acute distress Cardiovascular examination revealed regular rate and rhythm Lungs are clear to auscultation without wheezes, rhonchi or rales Abdomen is obese, soft, nontender with mild distention Lower extremities reveal no appreciable edema. No calf tenderness or Homans sign Result Diagram: 01/31/1772101/31/17 07 Imaging Last [address] 01/30/17 0000 Signed Impressions: Service Date/Time: Monday, January 30, 2017 20:55 - CONCLUSION: 1. Linear suspected atelectasis or scarring at the lung bases. 2. Small metallic foci at the right lung base which were present previously. These could be embolized prostate radiation seeds. Unusual lung jessica from prior lung surgery could have a similar appearance but embolized prostate radiation seeds are thought more likely. 3. Coronary artery calcifications. 4. 2 focal sclerotic rib lesions. The night rib lesion was seen previously on CT examination the abdomen. Kentrell Perez MD Chest X-Ray 01/29/171918 Signed Impressions: Service Date/Time: Sunday, January 29, 2017 19:42 - CONCLUSION: Partially consolidative infiltrate in the left lower lobe. Mason Coelho MD Abdomen/Pelvis CT 01/29/171918 Signed Impressions: Service Date/Time: Sunday, January 29, 2017 21:58 - CONCLUSION: 1. Stable appearance to the 4.3 cm smooth margin cyst adjacent to the head of the pancreas. 2. Stable small hiatus hernia. 3. No acute findings. Mason Coelho MD Other Results Microbiology Date/Time Source Procedure Growth Status 01/30/17 13:00 Urine Random Urine Urine Culture Pending Received Assessment and Plan Problem List: (1) UTI (lower urinary tract infection) ICD Codes: N39.0 - Lower urinary tract infectious disease Status: Acute Plan: The patient was initially admitted for possible pneumonia, however, CT scan reveals atelectasis versus scarring in the left lower lobe which rules out pneumonia. Urinalysis suspicious for UTI. Urine culture pending. Patient had been prescribed azithromycin and Levaquin. Will discontinue azithromycin as pneumonia was ruled out. Continue with Levaquin. Adjust antibiotic coverage based on culture results. (2) Hypertension ICD Codes: I10 - Hypertension Status: Chronic Plan: Blood pressure under adequate control for the acute care setting. Continue with current medication regimen. Clonidine as needed for elevated systolic blood pressure (3) Hypothyroidism ICD Codes: E03.9 - Hypothyroidism Status: Chronic Plan: Continue with current dosage of levothyroxine. The patient recently had a TSH as an outpatient which was elevated. Dosage was increased to 137 MCG daily just prior to admission. (4) Chronic kidney disease (CKD) ICD Codes: N18.9 - Chronic kidney disease Status: Chronic Plan: Follow renal function and electrolytes (5) Anemia in chronic kidney disease ICD Codes: N18.9 - Anemia in chronic renal disease; D63.1 - Anemia in chronic kidney disease Status: Chronic Plan: H&H has decreased due to delusional effect. Will provide patient with dosage of Procrit today. Recent outpatient iron level and ferritin were within normal limits. (6) History of prostate cancer ICD Codes: Z85.46 - History of malignant neoplasm of prostate Status: Chronic Plan: Status post radiation therapy. Patient still has urinary issues including incontinence. Continue with current medication regimen. (7) Constipation ICD Codes: K59.00 - Constipation Status: Acute Plan: Patient had diarrhea today. Aurelia-Colace and MiraLAX held. Will discontinue Aurelia-Colace and place the patient on stool softeners. Will use MiraLAX when necessary. (8) Insomnia ICD Codes: G47.00 - Insomnia Status: Chronic Plan: Continue with mirtazapine, clonazepam and trazodone. (9) At high risk for deep venous thrombosis ICD Codes: Z91.89 - Other specified personal risk factors, not elsewhere classified Status: Acute Plan: Continue with Lovenox (10) Adjustment disorder with mixed anxiety and depressed mood ICD Codes: F43.23 - Adjustment disorder with mixed anxiety and depressed mood Status: Chronic Plan: Continue with clonazepam, mirtazapine and duloxetine. Problem Qualifiers (1) Hypertension: Qualified Codes: I10 - Essential (primary) hypertension (2) Hypothyroidism: Qualified Codes: E89.0 - Postprocedural hypothyroidism (3) Chronic kidney disease (CKD): Qualified Codes: N18.3 - Chronic kidney disease, stage 3 (moderate) (4) Anemia in chronic kidney disease: Qualified Codes: N18.3 - Chronic kidney disease, stage 3 (moderate); D63.1 - Anemia in chronic kidney disease (5) Constipation: Qualified Codes: K59.00 - Constipation, unspecified (6) Insomnia: Qualified Codes: G47.00 - Insomnia, unspecified Mitch Silver MD Jan 31, 2017 12:50
[2017-01-31] MEDS ORDERED: POLYETHYLENE GLYCOL 17 GM PKG PO PRN (13:00)
[2017-01-31] MEDS ORDERED: EPOETIN ALFA 40,000 UNITS/ML VIAL SQ ONE (13:00)
[2017-01-31] MEDS: CALCIUM CARBONATE 1.25 GM (CA 500 MG) TAB PO SCH (13:31)
[2017-01-31] MEDS: MIRTAZAPINE 15 MG TAB PO SCH (20:16)
[2017-01-31] MEDS: TAMSULOSIN HCL 0.4 MG CAP PO SCH (20:17)
[2017-01-31] MEDS: traZODone HCL 100 MG TAB PO SCH (20:17)
[2017-01-31] MEDS: LEVOFLOXACIN 500 MG PREMIX INJ 100 ML IV SCH (22:26)
[2017-01-31] MEDS: ENOXAPARIN SODIUM 30 MG/0.3 ML SYRINGE SQ SCH (22:31)
[2017-02-01] VITALS: BP 138/77; PULSE 70; RESP 18; TEMP 98; O2SAT 96
[2017-02-01 04:00] VITALS: BP 155/76; PULSE 76; RESP 18; TEMP 97.2; O2SAT 96
[2017-02-01] MEDS: LEVOTHYROXINE SODIUM 112 MCG TAB PO SCH (06:30)
[2017-02-01] MEDS: LORazepam 0.5 MG TAB PO SCH ×2 (06:30→13:07)
[2017-02-01] MEDS: clonazePAM 0.5 MG TAB PO SCH ×2 (06:30→13:07)
[2017-02-01] MEDS: LEVOTHYROXINE SODIUM 25 MCG TAB PO SCH (06:30)
[2017-02-01 07:11] LABS: AUTOMATED NEUTROPHIL # 3.9 TH/MM3 (1.8-7.7); BASOPHIL # 0.1 TH/MM3 (0-0.2); EOSINOPHIL % 0.8 % (0.0-4.0); HEMATOCRIT 24.9 % (39.0-51.0); LYMPH % 18.6 % (9.0-44.0); MEAN CELL VOLUME 91.5 FL (80.0-100.0); MEAN CORPUSCULAR HEMOGLOBIN 30.5 PG (27.0-34.0); MEAN CORPUSCULAR HGB CONC 33.4 % (32.0-36.0); MONO % 5.1 % (0.0-8.0); NEUT % 74.5 % (16.0-70.0); PLATELET COUNT 95 TH/MM3 (150-450); RED BLOOD COUNT 2.72 MIL/MM3 (4.50-5.90); RED CELL DISTRIBUTION WIDTH 18.8 % (11.6-17.2); WHITE BLOOD COUNT 5.2 TH/MM3 (4.0-11.0)
[2017-02-01 07:24] LABS: HEMO FLAGS AUTO DIFF
[2017-02-01 07:31] LABS: BICARBONATE 23.8 MEQ/L (21.0-32.0); POTASSIUM 3.9 MEQ/L (3.5-5.1)
[2017-02-01 07:49] LABS: CALCIUM-PROTEIN CORRECTED 7.4 MG/DL (8.5-10.1)
[2017-02-01 08:00] VITALS: BP 134/77; PULSE 70; PULSE 85; RESP 19; TEMP 97.8; O2SAT 97
[2017-02-01] MEDS: LISINOPRIL 20 MG TAB PO SCH (08:52)
[2017-02-01] MEDS: PANTOPRAZOLE SOD 40 MG DELAYED RELEASE TAB PO SCH (08:52)
[2017-02-01] MEDS: CARVEDILOL 6.25 MG TAB PO SCH (08:52)
[2017-02-01] MEDS: CALCIUM CARBONATE 1.25 GM (CA 500 MG) TAB PO SCH (08:52)
[2017-02-01] MEDS: FOLIC ACID 1 MG TAB PO SCH (08:52)
[2017-02-01] MEDS: POTASSIUM CHLORIDE 10 MEQ CONTROLLED RELEASE TAB PO SCH (08:53)
[2017-02-01] MEDS: [UNRECOGNIZED DRUG - OTHER] PO SCH (08:53)
[2017-02-01] MEDS: ASPIRIN 81 MG CHEW TAB PO SCH (08:53)
[2017-02-01] MEDS: MIRABEGRON PO SCH (08:53)
[2017-02-01] MEDS: SODIUM CHLORIDE 0.9% FLUSH 10 ML FLUSH IV FLUSH SCH (08:56)
[2017-02-01] MEDS ORDERED: DOCUSATE SODIUM 100 MG CAP PO SCH (09:00)
[2017-02-01 10:42] LABS: PLATELET ESTIMATE SMEAR LOW (NORMAL); PLATELET MORPHOLOGY NORMAL (NORMAL); SCAN/DIFF AUTO DIFF CONFIRMED
[2017-02-01 11:20] VITALS: O2SAT 97
[2017-02-01 12:00] VITALS: BP 149/71; PULSE 63; RESP 19; TEMP 98.3; O2SAT 97
[2017-02-01] MEDS: DULoxetine HCl DR 30 MG CAP PO SCH (12:00)
[2017-02-01] MEDS ORDERED: LEVO137T2 PO (12:57)
[2017-02-01] MEDS ORDERED: DULO1CAP2 PO (12:57)
[2017-02-01] MEDS ORDERED: FURO20TA PO (12:57)
[2017-02-01] MEDS ORDERED: LEVO500T8 PO (12:57)
[2017-02-01] MEDS ORDERED: ROSU1TAB8 PO (12:57)
[2017-02-01] MEDS ORDERED: POTA10CA PO (12:57)
[2017-02-01] MEDS ORDERED: CARV6.25 PO (12:57)
[2017-02-01] MEDS ORDERED: TAMS5CAP PO (12:57)
[2017-02-01] MEDS ORDERED: NALT50TA3 PO (12:57)
[2017-02-01] MEDS ORDERED: TRAZ50TA12 PO (12:57)
[2017-02-01] MEDS ORDERED: CALCIUM GLUCONATE INJ 1 GM in SODIUM CHLORIDE 0.9% INJ 100 ML IV ONE (13:00)
--- NOTE | 2017-02-01 16:55 | HHI.PR ---
Subjective Remarks Patient states he wants to go home. He denies any chest pain, shortness of breath or cough. He did stand with physical therapy and was able to transfer with assistance. This is not much less than his baseline activity. He has 24- hour caregivers at home. Urine culture is negative after 24 hours the patient received almost 24 hours of antibiotics prior to the urine specimen being obtained. Blood pressure is been under adequate control. Bowels are moving well. She has had no difficulty with voiding. Appetite has been good. Current Medications Medications (Trade) Dose Ordered Sig/Yovanny Route Start Time Stop Time Status Last Admin (NS Flush) 2 ml UNSCH PRN IV FLUSH 01/29/17 22:45 (NS Flush) 2 ml BID IV FLUSH 01/29/17 22:45 02/01/17 08:56 (Lovenox Inj) 30 mg Q24H SQ 01/29/17 23:00 01/31/17 22:31 (Narcan Inj) 0.4 mg UNSCH PRN IV PUSH 01/29/17 22:45 (Milk Of Magncris Liq) 30 ml Q12H PRN PO 01/29/17 22:45 Levofloxacin/ Dextrose 100 ml @ 100 mls/hr Q24H IV 01/29/17 23:00 01/31/17 22:26 (Ativan) 0.5 mg Q8HR PO 01/30/17 06:00 02/01/17 13:07 (KlonoPIN) 0.5 mg Q8HR PO 01/29/17 22:45 02/01/17 13:07 (Prinivil) 20 mg DAILY PO 01/30/17 09:00 02/01/17 08:52 (Coreg) 6.25 mg BID PO 01/29/17 22:45 02/01/17 08:52 (Remeron) 30 mg HS PO 01/29/17 22:45 01/31/17 20:16 (Aspirin Chew) 81 mg DAILY PO 01/30/17 09:00 02/01/17 08:53 (Synthroid) 112 mcg DAILY@0700 PO 01/30/17 07:00 02/01/17 06:30 (Protonix) 40 mg DAILY PO 01/30/17 09:00 02/01/17 08:52 (Desyrel) 100 mg HS PO 01/29/17 23:00 01/31/17 20:17 (Cymbalta Dr) 30 mg DAILY PO 01/30/17 09:00 02/01/17 12:00 (Flomax) 0.4 mg HS PO 01/30/17 21:00 01/30/17 21:33 (Catapres) 0.1 mg Q6H PRN PO 01/29/17 23:00 (Synthroid) 25 mcg DAILY@0700 PO 01/30/17 07:00 02/01/17 06:30 (KCl) 10 meq BID PO 01/30/17 09:00 02/01/17 08:53 (Folate) 1 mg DAILY PO 01/30/17 09:00 02/01/17 08:52 Patient Own Medication PT OWN MED: MYRBETRIQ (MIRABEGR... DAILY PO 01/31/17 09:00 02/01/17 08:53 (Oscal) 500 mg DAILY PO 01/31/17 12:45 02/01/17 08:52 (Miralax) 17 gm DAILY PRN PO 01/31/17 13:00 (Colace) 100 mg DAILY PO 02/01/17 09:00 02/01/17 08:53 Objective Vital Signs Date Time Temp Pulse Resp B/P (MAP) Pulse Ox O2 Delivery O2 Flow Rate FiO2 02/01/17 12:00 98.3 63 19 149/71 (97) 97 02/01/17 11:20 97 02/01/17 08:00 85 02/01/17 08:00 97.8 70 19 134/77 (96) 97 02/01/17 08:00 Room Air 2.00 21 02/01/17 04:00 97.2 76 18 155/76 (102) 96 02/01/17 00:00 98.0 70 18 138/77 (97) 96 01/31/17 20:00 Room Air 01/31/17 20:00 65 01/31/17 19:30 97.9 65 20 168/77 (107) 98 01/31/17 18:04 98 21 I/O 01/31/17 01/31/17 01/31/17 02/01/17 02/01/17 02/01/17 07:00 15:00 23:00 07:00 15:00 23:00 Intake Total 590 ml 380 ml 460 ml 110 ml Balance 590 ml 380 ml 460 ml 110 ml Intake Oral 240 ml 380 ml 360 ml IV Total 350 ml 100 ml 110 ml # Voids 3 5 3 # Bowel Movements 2 1 2 Gen.: Morbidly obese elderly white male lying in bed in no acute distress Cardiovascular examination revealed regular rate and rhythm with soft systolic murmur Lungs clear to auscultation without wheezes, rhonchi or rales Abdomen is obese, soft, nontender with bowel sounds present. Palpation is limited due to obesity The lower extremities reveal no appreciable edema or calf tenderness Result Diagram: 02/01/1755502/01/17555 Other Results urine culture: No growth in 24 hours Assessment and Plan Problem List: (1) UTI (lower urinary tract infection) ICD Codes: N39.0 - Lower urinary tract infectious disease Status: Acute Plan: urine culture will likely not grow out an organism as the patient had received antibiotics prior to the urine specimen being obtained. Will complete course of levofloxacin. Patient is currently asymptomatic. (2) Hypertension ICD Codes: I10 - Hypertension Status: Chronic Plan: Blood pressure under adequate control. Continue with current medication regimen. Home health will continue to monitor blood pressure at home (3) Hypothyroidism ICD Codes: E03.9 - Hypothyroidism Status: Chronic Plan: Continue with current dosage of levothyroxine. The patient recently had a TSH as an outpatient which was elevated. Dosage was increased to 137 MCG daily just prior to admission. (4) Chronic kidney disease (CKD) ICD Codes: N18.9 - Chronic kidney disease Status: Chronic Plan: Follow renal function and electrolytesas an outpatient (5) Anemia in chronic kidney disease ICD Codes: N18.9 - Anemia in chronic renal disease; D63.1 - Anemia in chronic kidney disease Status: Chronic Plan: the patient did receive a Procrit injection yesterday. He will continue with ferrous sulfate.he has been approved by his insurance receive Procrit 40, 000 units subcutaneously weekly. Will continue with the injections until hemoglobin >10.0 (6) History of prostate cancer ICD Codes: Z85.46 - History of malignant neoplasm of prostate Status: Chronic Plan: Status post radiation therapy. Patient still has urinary issues including incontinence. Continue with current medication regimen. (7) Constipation ICD Codes: K59.00 - Constipation Status: Acute Plan: Patient had diarrhea today. Aurelia-Colace and MiraLAX held. Will discontinue Aurelia-Colace and place the patient on stool softeners. Will use MiraLAX when necessary. (8) Insomnia ICD Codes: G47.00 - Insomnia Status: Chronic Plan: Continue with mirtazapine, clonazepam and trazodone. (9) At high risk for deep venous thrombosis ICD Codes: Z91.89 - Other specified personal risk factors, not elsewhere classified Status: Acute Plan: discontinue Lovenox at discharge (10) Adjustment disorder with mixed anxiety and depressed mood ICD Codes: F43.23 - Adjustment disorder with mixed anxiety and depressed mood Status: Chronic Plan: Continue with clonazepam, mirtazapine and duloxetine. (11) Hypocalcemia ICD Codes: E83.51 - Hypocalcemia Status: Acute Plan: the patient is receiving IV calcium gluconate today. I have placed him on calcium carbonate which she will take twice a day. Will followup calcium level as an outpatient. Discharge Planning the patient will be discharged home today. Case management will notify the patient's home health provider of his discharge to they can resume services. Problem Qualifiers (1) Hypertension: Qualified Codes: I10 - Essential (primary) hypertension (2) Hypothyroidism: Qualified Codes: E89.0 - Postprocedural hypothyroidism (3) Chronic kidney disease (CKD): Qualified Codes: N18.3 - Chronic kidney disease, stage 3 (moderate) (4) Anemia in chronic kidney disease: Qualified Codes: N18.3 - Chronic kidney disease, stage 3 (moderate); D63.1 - Anemia in chronic kidney disease (5) Constipation: Qualified Codes: K59.00 - Constipation, unspecified (6) Insomnia: Qualified Codes: G47.00 - Insomnia, unspecified Mitch Silver MD Feb 01, 2017 16:55
--- NOTE | 2017-02-01 17:07 | HHI.DS ---
Discharge Summary Admission Date Jan 29, 2017 at 21:42 Discharge Date: Feb 01, 2017 Admitting Diagnosis Pneumonia (1) UTI (lower urinary tract infection) Diagnosis: Principal ICD Codes: N39.0 - Lower urinary tract infectious disease Status: Acute (2) Hypertension Diagnosis: Secondary ICD Codes: I10 - Hypertension Status: Chronic (3) Hypothyroidism Diagnosis: Secondary ICD Codes: E03.9 - Hypothyroidism Status: Chronic (4) Anemia in chronic kidney disease Diagnosis: Secondary ICD Codes: N18.9 - Anemia in chronic renal disease; D63.1 - Anemia in chronic kidney disease Status: Chronic (5) Insomnia Diagnosis: Secondary ICD Codes: G47.00 - Insomnia Status: Chronic (6) Hyperlipidemia Diagnosis: Secondary ICD Codes: E78.5 - Hyperlipidemia Status: Acute (7) Hypocalcemia Diagnosis: Secondary ICD Codes: E83.51 - Hypocalcemia Status: Acute (8) Adjustment disorder with mixed anxiety and depressed mood Diagnosis: Secondary ICD Codes: F43.23 - Adjustment disorder with mixed anxiety and depressed mood Status: Chronic (9) Constipation Diagnosis: Secondary ICD Codes: K59.00 - Constipation Status: Acute Brief History This 76er white male well-known to the undersigned physician presented to the emergency department on the day of admission complaining of some wheezing. His caregiver noticed that he seemed to be wheezing but he had no shortness of breath, fever, chills, nausea or vomiting. He had complained of some decrease in energy. His bowels are moving well. He does have a history of hypertension and his blood pressure is under good control. In the emergency department the patient was found to have a low-grade temperature elevation and chest x-ray revealed a possible left lower lobe infiltrate. White blood cell count was mildly elevated. It was thought to the patient had a pneumonia. He was initiated on IV antibiotics in the emergency department and would be placed an admission for IV antibiotic treatment for the presumptive pneumonia. CBC/BMP: 02/01/17 0556 02/01/17 0556 Significant Findings Laboratory Tests Test 01/29/17 19:50 01/30/17 06:10 01/30/17 13:00 01/31/17 07:22 White Blood Count 11.6 TH/MM3 (4.0-11.0) Red Blood Count 3.25 MIL/MM3 (4.50-5.90) 2.72 MIL/MM3 (4.50-5.90) 2.78 MIL/MM3 (4.50-5.90) Hemoglobin 9.6 GM/DL (13.0-17.0) 8.4 GM/DL (13.0-17.0) 8.4 GM/DL (13.0-17.0) Hematocrit 29.4 % (39.0-51.0) 25.0 % (39.0-51.0) 25.3 % (39.0-51.0) Red Cell Distribution Width 19.0 % (11.6-17.2) 18.9 % (11.6-17.2) 18.6 % (11.6-17.2) Platelet Count 136 TH/MM3 (150-450) 112 TH/MM3 (150-450) 98 TH/MM3 (150-450) Mean Platelet Volume 6.5 FL (7.0-11.0) Neutrophils (%) (Auto) 91.6 % (16.0-70.0) 83.0 % (16.0-70.0) 78.0 % (16.0-70.0) Lymphocytes (%) (Auto) 3.8 % (9.0-44.0) Neutrophils # (Auto) 10.6 TH/MM3 (1.8-7.7) 8.1 TH/MM3 (1.8-7.7) Lymphocytes # (Auto) 0.4 TH/MM3 (1.0-4.8) Blood Urea Nitrogen 34 MG/DL (7-18) 33 MG/DL (7-18) 37 MG/DL (7-18) Creatinine 2.35 MG/DL (0.60-1.30) 2.26 MG/DL (0.60-1.30) 2.49 MG/DL (0.60-1.30) Calcium Level 8.3 MG/DL (8.5-10.1) 7.6 MG/DL (8.5-10.1) 7.3 MG/DL (8.5-10.1) Alkaline Phosphatase 200 U/L (45-117) Aspartate Amino Transf (AST/SGOT) 45 U/L (15-37) Estimat Glomerular Filtration Rate 27 ML/MIN (>89) 28 ML/MIN (>89) 25 ML/MIN (>89) Troponin I LESS THAN 0.02 NG/ML C-Reactive Protein 2.30 MG/DL (0.00-0.30) Lipase 51 U/L (73-393) Potassium Level 3.4 MEQ/L (3.5-5.1) Urine Protein 30 mg/dL (NEG-TRACE) Urine Occult Blood MOD (NEG) Urine Leukocyte Esterase MOD (NEG) Urine RBC 98 /hpf (0-3) Urine WBC 44 /hpf (0-5) Urine Bacteria RARE /hpf (NONE) Platelet Estimate LOW (NORMAL) Random Glucose 115 MG/DL (74-106) Chloride Level 110 MEQ/L (98-107) Protein Corrected Calcium 7.5 MG/DL (8.5-10.1) Test 02/01/17 05:56 Red Blood Count 2.72 MIL/MM3 (4.50-5.90) Hemoglobin 8.3 GM/DL (13.0-17.0) Hematocrit 24.9 % (39.0-51.0) Red Cell Distribution Width 18.8 % (11.6-17.2) Platelet Count 95 TH/MM3 (150-450) Neutrophils (%) (Auto) 74.5 % (16.0-70.0) Platelet Estimate LOW (NORMAL) Blood Urea Nitrogen 32 MG/DL (7-18) Creatinine 2.31 MG/DL (0.60-1.30) Calcium Level 7.4 MG/DL (8.5-10.1) Chloride Level 111 MEQ/L (98-107) Estimat Glomerular Filtration Rate 28 ML/MIN (>89) Protein Corrected Calcium 7.4 MG/DL (8.5-10.1) Hospital Course The patient was admitted to a medical surgical bed and initiated on IV antibiotic therapy. A CT of the chest was ordered and revealed atelectasis versus scarring the left lower lobe. There was no infiltrate. At the time of admission, a urinalysis was ordered, however, the urine specimen was not obtained until the next day. The results were very suspicious for urinary tract infection. A urine culture was pending. It was felt the patient had a urinary tract infection which contributed to his complaint of weakness, elevated white blood cell count and mild temperature elevation. The patient was totally asymptomatic from ta respiratory standpoint. He had been placed on oxygen at the time of admission but was weaned off with oxygen saturations greater than 95% on room air. He had no further complaints of any "wheezing" during the hospitalization. During the hospitalization the patient was also found to hypocalcemia. He was placed on oral calcium supplement, however, calcium level remained low so he was given calcium gluconate intravenously in addition to the oral calcium supplement. The patient has a history of chronic kidney disease stage III with anemia associated with chronic kidney disease. His hemoglobin during the hospitalization reached a justine of 8.3. He was scheduled to start Procrit injections on an outpatient basis. He was provided with Procrit 40,000 units subcutaneously during the hospitalization. The plan was to monitor his H&H closely on an outpatient basis. He would continue with iron supplement. On the day of discharge, the patient had a strong desire to be discharged home. He was eating well. Bowels are moving well. He had been evaluated by physical therapy and required assistance with transfers but this was close to his baseline mobility. The patient has 24-hour caregivers at home. His blood pressure was under adequate control. It was felt that he had obtained maximum benefit from this hospitalization. The patient will be discharged home in good condition with close outpatient followup with the undersigned physician in one week. Home health would resume nurse visits and physical therapy. The patient would continue with medications as outlined on the medication reconciliation sheet. He would complete a course of oral antibiotics for the urinary tract infection. He would be placed on a heart healthy diet and activity would be limited by his baseline mobility but he had no weightbearing or activity restrictions otherwise. Pt Condition on Discharge: Good Discharge Disposition: Discharge Home Discharge Instructions DIET: Follow Instructions for: Heart Healthy Diet Activities you can perform: Regular-No Restrictions Mitch Silver MD Feb 01, 2017 17:07
== END 2017-02-01 16:54 | disposition home or self-care (01) | DRG 690 ==
LOC: NEPE 18:53 → NEDA 21:42 → HCIN 01-30 01:34 → N04A 01-30 15:23
PROVIDERS: ADMIT Family Medicine; ATTEND Family Medicine
DX: N39.0 Urinary tract infection, site not specified (principal); F03.90 Unspecified dementia, unspecified severity, without behavioral disturbance, psychotic disturbance, mood disturbance, and anxiety; E83.51 Hypocalcemia; N18.3 Chronic kidney disease, stage 3 (moderate); E78.5 Hyperlipidemia, unspecified; I25.10 Atherosclerotic heart disease of native coronary artery without angina pectoris; K21.9 Gastro-esophageal reflux disease without esophagitis; M19.90 Unspecified osteoarthritis, unspecified site; H91.90 Unspecified hearing loss, unspecified ear; K22.70 Barrett's esophagus without dysplasia; Z96.643 Presence of artificial hip joint, bilateral; Z96.652 Presence of left artificial knee joint; R32 Unspecified urinary incontinence; E89.0 Postprocedural hypothyroidism; D63.1 Anemia in chronic kidney disease; I12.9 Hypertensive chronic kidney disease with stage 1 through stage 4 chronic kidney disease, or unspecified chronic kidney disease; F10.20 Alcohol dependence, uncomplicated; G47.00 Insomnia, unspecified; F43.23 Adjustment disorder with mixed anxiety and depressed mood; K59.00 Constipation, unspecified; R10.84 Generalized abdominal pain; Z92.3 Personal history of irradiation; Z85.46 Personal history of malignant neoplasm of prostate
CPT/HCPCS: 71010; 71250; 74176; 80048; 80053; 81001; 83690; 83735; 83880; 84155; 84484; 85025; 85610; 85730; 86140; 87086; 93005; J0456; J0610; J1650; J1956; J2405; J2543; J3370; J3411; J7030; J7050; Q4081

== ENCOUNTER 2017-11-11 11:54 | Inpatient (IN) ==
--- NOTE | 2017-11-11 12:14 | ED ---
HPI General Chief complaint: Medical Clearance Stated complaint: Medical/Evac Time Seen by Provider: 11/11/17 12:02 Source: patient Mode of arrival: EMS Limitations: no limitations History of Present Illness HPI narrative: 77-year-old male presents emergency department via [facility] from his assisted living facility with the complaint of "not feeling well". Patient says that he has been feeling unwell for approximately 2 weeks. Says he saw his primary care physician who diagnosed with bronchitis and gave him multiple medications to include an antibiotic. Patient says he finished his antibiotic and still does not feel good. Says he has a productive cough of yellow sputum. He denies fever, chills, chest pain, shortness of breath, but abdominal pain, back pain, leg pain. He denies cardiac, pulmonary or any other medical problems. Denies history of diabetes. Patient denies history of tobacco use but says he drinks occasionally about once a week. According to [facility], they state that patient sleeps with 2 L O2 last night and patient did not does do so last night. Patient denies history of sleep apnea but states that he cannot tolerate CPAP so that is why he uses oxygen. Patient's primary care physician is Dr. Silver. Related Data Home Medications Medication Instructions Recorded Confirmed alprazolam 0.5 mg PO BID PRN 11/11/17 11/11/17 amlodipine 5 mg PO DAILY 11/11/17 11/11/17 carvedilol 6.25 mg PO BID 11/11/17 11/11/17 duloxetine 30 mg PO DAILY 11/11/17 11/11/17 furosemide 20 mg PO DAILY 11/11/17 11/11/17 gabapentin 300 mg PO HS 11/11/17 11/11/17 levothyroxine 13 mcg PO DAILY 11/11/17 11/11/17 mirabegron [Myrbetriq] 25 mg PO HS 11/11/17 11/11/17 mirtazapine 30 mg PO HS 11/11/17 11/11/17 omeprazole PO DAILY 11/11/17 potassium chloride 10 meq PO DAILY 11/11/17 11/11/17 rosuvastatin 20 mg PO HS 11/11/17 11/11/17 tamsulosin 0.4 mg PO DAILY 11/11/17 11/11/17 Allergies Allergy/AdvReac Type Severity Reaction Status Date / Time hydrocodone Allergy Severe Anaphylaxis Verified 11/11/17 12:10 adhesive Allergy Unknown Anaphylaxis Verified 11/11/17 12:10 Review of Systems Except as stated in HPI: all other systems reviewed are negative [facility] History History Provided By: Medical Record Medical History Medical History Hypertension (Acute) GERD (gastroesophageal reflux disease) (Acute) Hyperlipidemia (Acute) Hypothyroid (Acute) History of thyroidectomy (Resolved) Prostate cancer (Resolved) Surgical History Surgical History Hx of joint replacement (Acute) Social History Social History Second Hand Smoke Exposure: No Smoking Status: Never smoker How Often Do You Have a Drink Containing Alcohol: 2 to 3 times a week Recent Travel in [facility] within the Last 8 Weeks: No Recent Out of Country Travel within the Last 8 Weeks: No Exam Const General: cooperative, diaphoretic and frail appearing Nutritional Appearance: obese Orientation: alert, awake and oriented x3 HENMT Head: normal to inspection and atraumatic Ears: hearing grossly normal bilaterally, external ears normal and TM's normal bilaterally Nose: external nose normal and nares normal Face and sinus: dry mucous membranes Eyes General: appearance normal, both eyes and all related structures Alignment and Position: alignment normal and position normal Periorbital: periorbital findings normal Eyelids: eyelids normal Conjunctivae: conjunctival abnormality (somewhat pale conjunctiva) bilaterally Sclera: sclerae normal Pupils: PERRL EOM: EOM intact bilaterally Neck Neck: normal visual inspection, trachea midline and supple Lymphatic: no lymphadenopathy noted Resp Effort & Inspection: abnormal respiratory pattern, cough, stridor and symmetric chest movement Auscultation: rhonchi Cardio Jugular venous pressure: no JVD Rate: regular rate Rhythm: regular rhythm Heart Sounds: S1 normal and S2 normal GI Inspection: obesity and other Palpation: firm Auscultation: normal bowel sounds Skin General: no rashes or lesions noted Trauma: no lacerations or abrasions Wounds: no wounds Hair: normal Nails: normal Neuro General: alert, awake and oriented x3 Cognition: normal cognition Speech: speech normal Extrem General: normal to inspection Right lower extremity: lower leg Details: normal to inspection and no edema Left lower extremity: lower leg Details: normal to inspection and no edema Psych Appearance: grossly normal Mental Status: mental status grossly normal Course Initial Documented Vital Signs Pulse Rate 74 11/11/17 11:56 Respiratory Rate 20 11/11/17 11:56 Blood Pressure 177/81 H 11/11/17 11:56 Pulse Oximetry 92 L 11/11/17 11:56 Last Documented Vital Signs Temperature 98.5 F 11/11/17 14:04 Pulse Rate 73 11/11/17 14:04 Respiratory Rate 22 11/11/17 14:04 Blood Pressure 151/71 H 11/11/17 14:04 Pulse Oximetry 95 11/11/17 14:04 Medical Decision Making MDM Narrative Medical decision making narrative: 77-year-old male presents emergency department for evaluation of "not feeling well" for approximately weeks. Patient decided to come in today because he was not feeling well and he finishes antibiotics for diagnosis of bronchitis. Patient denied any medical history upon initial evaluation however, receive the medication list and appears that patient had does have cardiac history. In addition, appears that he may have anxiety and depression. According to the nurse, patient not take his morning medication but he did take his medication last night. Labs and imaging studies ordered. Note that I did order a type and screen as patient states he has a history of anemia and patient is unable to explain his symptoms thoroughly. There is a concern for symptomatic anemia at this point. After review the EMR, it appears that patient was admitted in the beginning of January for urinary tract infection and presumed pneumonia. He was found to be very anemic has a history of hypothyroidism s/p thyroidectomy in 2002, hypertension, hyperlipidemia, hypocalcemia, chronic constipation and depression. Says he also has a history of chronic anemia and has been using Procrit. I spoke with the nurse who discovered that patient had taken a full course of Cipro, prednisone, and albuterol inhaler. Chest x-ray indicative of developing pneumonia, will initiate Zosyn and azithromycin. He does not appear to be in respiratory distress currently and is on O2@ 2LPM [place]. Cardiac enzymes are negative. Hemoglobin and hematocrit are improved from January. Patient has chronic CKD III/IV, unchanged from previous labs. No leukocytosis. I would like to admit this patient as he has pneumonia with hypoxia in the 80s upon arrival. Says he only uses O2 at night 2LPM. Pt remains on 2LPM O2 while in the ED and appears to be comfortable. Upon reassessment, patient says he "feels great". He agrees to to be admitted. I spoke with Dr. Beth and he agreed to the admission. Differential Diagnosis Differential Diagnosis: ACS, COPD, pneumonia, medication noncompliance Lab Data Result diagrams: 11/11/17 12:26 11/11/17 12:26 Lab Results 11/11/17 11/11/17 11/11/17 Range/Units 12:26 12:26 12:26 WBC 9.9 (4.0-11.0) th/mm3 RBC 3.31 L (4.50-5.90) mil/mm3 Hgb 10.0 L (13.0-17.0) gm/dL Hct 31.6 L (39.0-51.0) % MCV 95.4 (80.0-100.0) fL MCH 30.2 (27.0-34.0) pg MCHC 31.7 L (32.0-36.0) % RDW 20.5 H (11.6-17.2) % Plt Count 171 (150-450) th/mm3 MPV 7.4 (7.0-11.0) fL Neut % (Auto) 88.9 H (16.0-70.0) % Lymph % (Auto) 6.9 L (9.0-44.0) % [place] % (Auto) 3.3 (0.0-8.0) % Eos % (Auto) 0.1 (0.0-4.0) % Baso % (Auto) 0.8 (0.0-2.0) % Neut # (Auto) 8.8 H (1.8-7.7) th/mm3 Lymph # (Auto) 0.7 L (1.0-4.8) th/mm3 [place] # (Auto) 0.3 (0.0-0.9) th/mm3 Eos # (Auto) 0.0 (0.0-0.4) th/mm3 Baso # (Auto) 0.1 (0.0-0.2) th/mm3 WBC Differential . Differential Comment Auto diff final PT 9.9 (9.8-11.6) sec INR 1.0 Ratio Sodium 144 (136-145) meq/L Potassium 5.0 (3.5-5.1) meq/L Chloride 110 H (98-107) meq/L Carbon Dioxide 25.5 (21.0-32.0) meq/L Anion Gap 9 (5-15) meq/L BUN 39 H (7-18) mg/dL Creatinine 2.42 H (0.60-1.30) mg/dL Estimated GFR 26 L (>89) mL/min Random Glucose 87 (74-106) mg/dL Calcium 7.7 L (8.5-10.1) mg/dL Magnesium 2.3 (1.5-2.5) mg/dL Total Bilirubin 0.3 (0.2-1.0) mg/dL AST 40 H (15-37) U/L ALT 26 (12-78) U/L Alkaline Phosphatase 256 H (45-117) U/L Total Creatine Kinase 62 (39-308) U/L Troponin I Less than 0.02 L (0.02-0.05) ng/mL B-Natriuretic Peptide (0-100) pg/mL Total Protein 7.5 (6.4-8.2) g/dL Albumin 2.4 L (3.4-5.0) g/dL TSH 4.820 H (0.358-3.740) uIU/mL Blood Type Antibody Screen Antibody Identification Antigen Identification 11/11/17 11/11/17 11/11/17 Range/Units 12:26 12:26 12:30 WBC (4.0-11.0) th/mm3 RBC (4.50-5.90) mil/mm3 Hgb (13.0-17.0) gm/dL Hct (39.0-51.0) % MCV (80.0-100.0) fL MCH (27.0-34.0) pg MCHC (32.0-36.0) % RDW (11.6-17.2) % Plt Count (150-450) th/mm3 MPV (7.0-11.0) fL Neut % (Auto) (16.0-70.0) % Lymph % (Auto) (9.0-44.0) % [place] % (Auto) (0.0-8.0) % Eos % (Auto) (0.0-4.0) % Baso % (Auto) (0.0-2.0) % Neut # (Auto) (1.8-7.7) th/mm3 Lymph # (Auto) (1.0-4.8) th/mm3 [place] # (Auto) (0.0-0.9) th/mm3 Eos # (Auto) (0.0-0.4) th/mm3 Baso # (Auto) (0.0-0.2) th/mm3 WBC Differential Differential Comment PT (9.8-11.6) sec INR Ratio Sodium (136-145) meq/L Potassium (3.5-5.1) meq/L Chloride (98-107) meq/L Carbon Dioxide (21.0-32.0) meq/L Anion Gap (5-15) meq/L BUN (7-18) mg/dL Creatinine (0.60-1.30) mg/dL Estimated GFR (>89) mL/min Random Glucose (74-106) mg/dL Calcium (8.5-10.1) mg/dL Magnesium (1.5-2.5) mg/dL Total Bilirubin (0.2-1.0) mg/dL AST (15-37) U/L ALT (12-78) U/L Alkaline Phosphatase (45-117) U/L Total Creatine Kinase (39-308) U/L Troponin I (0.02-0.05) ng/mL B-Natriuretic Peptide 106 H (0-100) pg/mL Total Protein (6.4-8.2) g/dL Albumin (3.4-5.0) g/dL TSH (0.358-3.740) uIU/mL Blood Type A Positive Antibody Screen Positive H Antibody Identification Anti-Ramona Antigen Identification Leb Antigen - NEGATIVE Imaging Data Radiologist's impression: Chest X-Ray 11/11/17 12:02 CONCLUSION: New bilateral basilar airspace consolidation concerning for pneumonia. The heart size appears enlarged and there is mild cephalization of pulmonary vasculature. This appearance is stable from prior exam. Discharge Plan Discharge Disposition Patient Disposition: 30 Still Patient Discharge Condition Condition: Stable Discharge Details Diagnosis: Pneumonia, Hypoxia Physicians Team ED Provider: Cb Lee ED Midlevel Provider: Yamini Bartholomew Primary Care Provider: Mitch Silver Rxs /Orders / Referrals /Forms Prescriptions: No Action carvedilol 6.25 mg Tablet 6.25 mg PO BID RF: 0 mirtazapine 30 mg Tablet,Disintegrating 30 mg PO HS RF: 0 potassium chloride 10 mEq Tablet Extended Release 10 meq PO DAILY RF: 0 amlodipine 5 mg Tablet 5 mg PO DAILY RF: 0 tamsulosin 0.4 mg Capsule,Extended Release 24hr 0.4 mg PO DAILY RF: 0 gabapentin 300 mg Capsule 300 mg PO HS RF: 0 furosemide 20 mg Tablet 20 mg PO DAILY RF: 0 rosuvastatin 20 mg Tablet 20 mg PO HS RF: 0 duloxetine 30 mg Capsule,Delayed Release(Dr/Ec) 30 mg PO DAILY RF: 0 levothyroxine 13 mcg Capsule 13 mcg PO DAILY RF: 0 mirabegron [Myrbetriq] 25 mg Tablet Extended Release 24 Hr 25 mg PO HS RF: 0 omeprazole PO DAILY RF: 0 alprazolam 0.5 mg Tablet 0.5 mg PO BID PRN (Reason: Anxiety) RF: 0 Discharge Interventions Interventions: Vital Signs Last Done: 11/11/17 14:04 Status ED Status: With RUCHI
--- NOTE | 2017-11-11 12:25 | XR ---
EXAM DATE: 11/11/2017 12:21 PM EDT AGE/SEX: 77 years / Male INDICATIONS: Bronchitis. CLINICAL DATA: This is the patient's initial encounter. Patient reports that signs and symptoms have been present for 1 week and indicates a pain score of 0/10. MEDICAL/SURGICAL HISTORY: . Hypertension. Carcinoma, prostate. Hernia, hiatal . Thyroidectomy . Carotid endarterectomy. Spinal stenosis surgery COMPAR[place]: [facility] [place] S[place] AP, 01/29/2017. . FINDINGS: AP upright portable view of the chest demonstrates bilateral basilar airspace consolidation, left gre ater than right. The heart size appears enlarged. Pulmonary vasculature appears mildly prominent. Oss eous structures are intact. CONCLUSION: New bilateral basilar airspace consolidation concerning for pneumonia. The heart size appears enlarge d and there is mild cephalization of pulmonary vasculature. This appearance is stable from prior exam . Electronically signed by: Willa Trujillo MD 11/11/2017 12:24 PM EDT
[2017-11-11 13:04] LABS: Prothrombin Time 9.9 sec (9.8-11.6)
[2017-11-11 13:10] LABS: Baso # (Auto) 0.1 th/mm3 (0.0-0.2); Baso % (Auto) 0.8 % (0.0-2.0); Eos % (Auto) 0.1 % (0.0-4.0); Hematocrit 31.6 % (39.0-51.0); Lymph # (Auto) 0.7 th/mm3 (1.0-4.8); Lymph % (Auto) 6.9 % (9.0-44.0); Mean Corpuscular HGB Conc 31.7 % (32.0-36.0); Mean Corpuscular Hemoglobin 30.2 pg (27.0-34.0); Mean Corpuscular Volume 95.4 fL (80.0-100.0); Mean Platelet Volume 7.4 fL (7.0-11.0); Mono # (Auto) 0.3 th/mm3 (0.0-0.9); Mono % (Auto) 3.3 % (0.0-8.0); Neut # (Auto) 8.8 th/mm3 (1.8-7.7); Neut % (Auto) 88.9 % (16.0-70.0); Platelet Count 171 th/mm3 (150-450); Red Blood Count 3.31 mil/mm3 (4.50-5.90); Red Cell Distribution Width 20.5 % (11.6-17.2); White Blood Count 9.9 th/mm3 (4.0-11.0)
[2017-11-11] MEDS ORDERED: Piperacil/Tazo 3.375 GM Premix 50 ML IV.SIG ONE (13:11)
[2017-11-11] MEDS ORDERED: Azithromycin Inj 500 MG in Sodium Chlor 0.9% Inj 250 ML IV.SIG STA (13:11)
[2017-11-11 13:27] LABS: Alanine Aminotransferase 26 U/L (12-78); Albumin 2.4 g/dL (3.4-5.0); Anion Gap 9 meq/L (5-15); Aspartate Aminotransferase 40 U/L (15-37); Blood Urea Nitrogen 39 mg/dL (7-18); Calcium 7.7 mg/dL (8.5-10.1); Carbon Dioxide 25.5 meq/L (21.0-32.0); Chloride 110 meq/L (98-107); Glomerular Filtration Rate 26 mL/min (>89); Glucose,Random 87 mg/dL (74-106); Magnesium 2.3 mg/dL (1.5-2.5); Sodium 144 meq/L (136-145)
[2017-11-11 13:43] LABS: Alkaline Phosphatase 256 U/L (45-117); Total Protein 7.5 g/dL (6.4-8.2)
[2017-11-11 13:45] LABS: Creatine Kinase 62 U/L (39-308)
[2017-11-11] MEDS ORDERED: Sod Chloride 0.9% Inj 2,000 ML IV.SIG ONE (16:19)
--- NOTE | 2017-11-11 16:29 | P.HP ---
History of Present Illness Primary Care Physician: Mitch Silver MD History of Present Illness: 77-year-old white male being admitted for acute hypoxic respiratory failure. Patient was in his usual state of health until about 2 weeks ago and began experiencing a wet cough and progressive fatigue. Denies having any chest pain or any mauro shortness of breath, fevers chills, nausea vomiting. Says he completed a regimen of Cipro prednisone and albuterol but his symptoms persisted. Thus his daughter call 911. Upon presenting to the emergency department his sats were noted to be in the 80s. It took 4 L to bring his sats in the low 90s. His renal function also showed acute impairment as well with a creatinine elevated greater than 2.4. Chest x-ray was performed which showed obvious right-sided infiltrates upon my independent review. He was given 1 dose of azithromycin and Zosyn. Pt says at home he wears 2 L of O2 at night. Inpatient Certification: I certify that the inpatient services were ordered in accordance with Medicare regulations governing the order. This includes certification that hospital inpatient services are reasonable and necessary and in the case of services not specified as inpatient-only under 42 CFR 419.22(n), that they are appropriately provided as inpatient services in accordance to with the 2-midnight benchmark under 43 CFR 412.3(e) Review of Systems All other systems reviewed negative except as stated in HPI PMFSH - History History Provided By: Medical Record - Medical History Medical History: Medical History (Last Updated 11/11/17 @ 12:24 by DUR Aldana) Hypertension GERD (gastroesophageal reflux disease) Hyperlipidemia Hypothyroid History of thyroidectomy Prostate cancer (Resolved) - Surgical History Surgical History: Surgical History (Last Updated 11/11/17 @ 12:02 by Carlos Carl) Hx of joint replacement - Tobacco History Second Hand Smoke Exposure: No Smoking Status: Never smoker - Alcohol History How Often Do You Have a Drink Containing Alcohol: 2 to 3 times a week - Travel History Recent Travel in the [place] Within the Last 8 Weeks: No Recent Travel Out of the Country Within the Last 8 Weeks: No - Immunization History Tetanus Immunization: Unsure Medications and Allergies Active Medications: Active Medications Sodium Chloride (Ns Flush) 2 ml IV.FLUSH PRN PRN PRN Reason: FLUSH AFTER USING IV ACCESS Allergies Allergy/AdvReac Type Severity Reaction Status Date / Time hydrocodone Allergy Severe Anaphylaxis Verified 11/11/17 12:10 adhesive Allergy Unknown Anaphylaxis Verified 11/11/17 12:10 Home Medications Medication Instructions Recorded Confirmed Type RX: alprazolam 0.5 mg PO BID PRN 11/11/17 11/11/17 History RX: amlodipine 5 mg PO DAILY 11/11/17 11/11/17 History RX: carvedilol 6.25 mg PO BID 11/11/17 11/11/17 History RX: duloxetine 30 mg PO DAILY 11/11/17 11/11/17 History RX: furosemide 20 mg PO DAILY 11/11/17 11/11/17 History RX: gabapentin 300 mg PO HS 11/11/17 11/11/17 History RX: levothyroxine 13 mcg PO DAILY 11/11/17 11/11/17 History RX: mirtazapine 30 mg PO HS 11/11/17 11/11/17 History RX: potassium chloride 10 meq PO DAILY 11/11/17 11/11/17 History RX: rosuvastatin 20 mg PO HS 11/11/17 11/11/17 History RX: tamsulosin 0.4 mg PO DAILY 11/11/17 11/11/17 History mirabegron [Myrbetriq] 25 mg PO HS 11/11/17 11/11/17 History omeprazole PO DAILY 11/11/17 History Exam Vital signs: Vital Signs 11/11/17 11:56 11/11/17 12:18 11/11/17 14:04 Temperature 98.5 F Pulse Rate 74 73 Respiratory Rate 20 22 Blood Pressure 177/81 H 151/71 H Pulse Oximetry 92 L 98 95 Intake & Output 11/10/17 11/11/17 11/11/17 18:59 06:59 18:59 Weight 124.738 kg Narrative: VS: afebrile GENERAL: Elderly white male, appears fatigued, coughing SKIN: Warm and dry. EYES: No scleral icterus. No injection or drainage. ENT: No nasal bleeding or discharge. Mucous membranes pink and moist. CARDIOVASCULAR: Regular rate and rhythm. no murmurs RESPIRATORY: No accessory muscle use. Diminished breath sounds in the bases but otherwise are coarse GASTROINTESTINAL: Abdomen soft, non-tender, nondistended. Extremities: No clubbing, cyanosis, or edema. No obvious deformities. MUSCULOSKELETAL: grossly intact ROM with 5/5 strength in upper and lower extremities proximally; adequate muscle bulk and tone for age and habitus NEUROLOGICAL: Awake and alert. No obvious cranial nerve deficits. No facial droop nor slurred speech noted. PSYCHIATRIC: Appropriate mood and affect; insight and judgment normal. Results - Labs CBC & Chem 7: 11/11/17 12:26 11/11/17 12:26 Labs: Laboratory Results - last 24 hr 11/11/17 11/11/17 11/11/17 12:26 12:26 12:26 WBC 9.9 RBC 3.31 L Hgb 10.0 L Hct 31.6 L MCV 95.4 MCH 30.2 MCHC 31.7 L RDW 20.5 H Plt Count 171 MPV 7.4 Neut % (Auto) 88.9 H Lymph % (Auto) 6.9 L [place] % (Auto) 3.3 Eos % (Auto) 0.1 Baso % (Auto) 0.8 Neut # (Auto) 8.8 H Lymph # (Auto) 0.7 L [place] # (Auto) 0.3 Eos # (Auto) 0.0 Baso # (Auto) 0.1 WBC Differential . Differential Comment Auto diff final PT 9.9 INR 1.0 Sodium 144 Potassium 5.0 Chloride 110 H Carbon Dioxide 25.5 Anion Gap 9 BUN 39 H Creatinine 2.42 H Estimated GFR 26 L Random Glucose 87 Calcium 7.7 L Magnesium 2.3 Total Bilirubin 0.3 AST 40 H ALT 26 Alkaline Phosphatase 256 H Total Creatine Kinase 62 Troponin I Less than 0.02 L B-Natriuretic Peptide Total Protein 7.5 Albumin 2.4 L TSH 4.820 H Blood Type Antibody Screen Antibody Identification Antigen Identification 11/11/17 11/11/17 11/11/17 12:26 12:26 12:30 WBC RBC Hgb Hct MCV MCH MCHC RDW Plt Count MPV Neut % (Auto) Lymph % (Auto) [place] % (Auto) Eos % (Auto) Baso % (Auto) Neut # (Auto) Lymph # (Auto) [place] # (Auto) Eos # (Auto) Baso # (Auto) WBC Differential Differential Comment PT INR Sodium Potassium Chloride Carbon Dioxide Anion Gap BUN Creatinine Estimated GFR Random Glucose Calcium Magnesium Total Bilirubin AST ALT Alkaline Phosphatase Total Creatine Kinase Troponin I B-Natriuretic Peptide 106 H Total Protein Albumin TSH Blood Type A Positive Antibody Screen Positive H Antibody Identification Anti-Ramona Antigen Identification Leb Antigen - NEGATIVE - Imaging Impressions Chest X-Ray 11/11/17 12:02 CONCLUSION: New bilateral basilar airspace consolidation concerning for pneumonia. The heart size appears enlarged and there is mild cephalization of pulmonary vasculature. This appearance is stable from prior exam. Caprini VTE Risk Assessment Caprini VTE Risk Assessment: Moderate/High Risk (score >= 2) Caprini Risk Assessment Model: Point Value = 1 Point Value = 2 Point Value = 3 Point Value = 5 Age 41-60 Minor surgery BMI > 25 kg/m2 Swollen legs Varicose veins or History of unexplained or recurrent spontaneous Oral contraceptives or hormone replacement Sepsis (< 1 month) Serious lung disease, including pneumonia (< 1 month) Abnormal pulmonary function Acute myocardial infarction Congestive heart failure (< 1 month) History of inflammatory bowel disease Medical patient at bed rest Age 61-74 Arthroscopic surgery Major open surgery (> 45 min) Laparoscopic surgery (> 45 min) Malignancy Confined to bed (> 72 hours) Immobilizing plaster cast Central venous access Age >= 75 History of VTE Family history of VTE Factor V Leiden Prothrombin [id number] Lupus anticoagulant Anticardiolipin antibodies Elevated serum homocysteine Heparin-induced thrombocytopenia Other congenital or acquired thrombophilia Stroke (< 1 month) Elective arthroplasty Hip, pelvis, or leg fracture Acute spinal cord injury (< 1 month) Prophylaxis Regimen: Total Risk Factor Score Risk Level Prophylaxis Regimen 0-1 Low Early ambulation 2 Moderate Order ONE of the following: *Sequential Compression Device (SCD) *Heparin 5000 units SQ BID 3-4 Higher Order ONE of the following medications: *Heparin 5000 units SQ TID *Enoxaparin/Lovenox 40 mg SQ daily (WT < 150 kg, CrCl > 30 mL/min) *Enoxaparin/Lovenox 30 mg SQ daily (WT < 150 kg, CrCl > 10-29 mL/min) *Enoxaparin/Lovenox 30 mg SQ BID (WT < 150 kg, CrCl > 30 mL/min) AND/OR *Sequential Compression Device (SCD) 5 or more Highest Order ONE of the following medications: *Heparin 5000 units SQ TID (Preferred with Epidurals) *Enoxaparin/Lovenox 40 mg SQ daily (WT < 150 kg, CrCl > 30 mL/min) *Enoxaparin/Lovenox 30 mg SQ daily (WT < 150 kg, CrCl > 10-29 mL/min) *Enoxaparin/Lovenox 30 mg SQ BID (WT < 150 kg, CrCl > 30 mL/min) AND *Sequential Compression Device (SCD) Assessment and Plan - Plan 77-year-old white male being admitted for acute hypoxic respiratory failure Acute hypoxic respiratory failure -Likely secondary to obvious pneumonia, will obtain echocardiogram given that the daughter does admit the patient has intermittent lower extremity edema and takes Lasix. BNP is unremarkable -Antibiotics as below -consider d-dimer if oxygenation does not improve in next 24 hrs, clinically not resembling a PE; wells score of 0. Refractory pneumonia -Risk of being multidrug-resistant at this point given that the patient has already undergone a course of Cipro, will escalate antibiotics to vancomycin and Levaquin for now (both renally dosed). -legionella and pneumococcal urinary antigens ordered, awaiting sputum culture as well Acute renal injury -Suspect secondary to dehydration secondary to illness, baseline Cr seems to be in the low 1s -Ordering IV bolus followed by infusion, recheck in a.m., vancomycin pharmacy renal dose and consult Nocturnal hypoxia - oxygenation as above anxiety/depression - resume home meds of duloxetine and remeron and xanax HYL and HTN - continue home coreg and crestor prostate cancer/bladder disease - resume home Myrbetriq and Flomax lovenox
[2017-11-11] MEDS ORDERED: Vancomycin Consult Pharmacy 1 EACH OTHER SCH (17:00)
[2017-11-11] MEDS ORDERED: Vancomycin Inj 2,000 MG in Sodium Chlor 0.9% Inj 500 ML IV.SIG ONE (18:00)
[2017-11-11] MEDS: Furosemide 20 MG Tablet PO SCH (19:21)
[2017-11-11] MEDS ORDERED: Acetaminophen 325 MG Tablet PO ONE (21:08)
[2017-11-11] MEDS: Carvedilol 6.25 MG Tablet PO SCH (21:27)
[2017-11-11] MEDS: Gabapentin 300 MG Capsule PO SCH (21:27)
[2017-11-11] MEDS: MIRTAZAPINE 30 MG PO SCH (21:28)
[2017-11-11] MEDS: Enoxaparin Inj 30 MG/0.3 ML Syringe SQ SCH (21:36)
[2017-11-11] MEDS: Sod Chloride 0.9% Inj 1,000 ML IV.CONT SCH (21:36)
[2017-11-12] MEDS: ALPRAZolam 0.5 MG Tablet PO PRN (00:05)
[2017-11-12] MEDS ORDERED: Benzonatate 100 MG Capsule PO ONE (01:05)
[2017-11-12] MEDS: Sod Chloride 0.9% Inj 1,000 ML IV.CONT SCH ×2 (05:58→09:53)
[2017-11-12 08:43] LABS: Calcium 7.7 mg/dL (8.5-10.1); Carbon Dioxide 28.2 meq/L (21.0-32.0); Potassium 4.3 meq/L (3.5-5.1)
[2017-11-12] MEDS: Carvedilol 6.25 MG Tablet PO SCH ×2 (09:52→20:49)
[2017-11-12] MEDS: Enoxaparin Inj 30 MG/0.3 ML Syringe SQ SCH (09:52)
[2017-11-12] MEDS: Albumin Human 25% Inj 50 ML IV.SIG SCH ×2 (09:52→22:35)
[2017-11-12] MEDS: Furosemide 20 MG Tablet PO SCH (09:52)
--- NOTE | 2017-11-12 10:40 | P.PN ---
Subjective Interval history: Nursing denies any deterioration since last night. Patient himself says he feels like he has a little bit more energy today than yesterday. Denies any shortness of breath or chest pain. Says he coughs up sputum whenever he gets a breathing treatment. Physical Exam Vital signs: Vital Signs 11/11/17 11:56 11/11/17 12:02 11/11/17 12:18 Temperature Pulse Rate 74 76 Respiratory Rate 20 Blood Pressure 177/81 H Pulse Oximetry 92 L 98 11/11/17 14:04 11/11/17 16:08 11/11/17 19:09 Temperature 98.5 F Pulse Rate 73 76 99 H Respiratory Rate 22 20 20 Blood Pressure 151/71 H 184/83 H Pulse Oximetry 95 95 95 11/11/17 20:00 11/11/17 22:10 11/12/17 00:00 Temperature 97.7 F 98.9 F Pulse Rate 78 80 80 Respiratory Rate 18 19 18 Blood Pressure 179/74 H 118/56 L Pulse Oximetry 92 L 92 L 11/12/17 00:02 11/12/17 01:08 11/12/17 04:00 Temperature 98.1 F Pulse Rate 83 Respiratory Rate 21 18 Blood Pressure Pulse Oximetry 95 11/12/17 08:58 Temperature Pulse Rate 95 H Respiratory Rate 14 Blood Pressure Pulse Oximetry 92 L Intake & Output 11/11/17 11/12/17 11/12/17 18:59 06:59 18:59 Intake Total 1300 / 1300 1150 / 1150 Balance 1300 / 1300 1150 / 1150 Weight 124.738 kg 124.8 kg Intake: IV 1300 / 1300 670 / 670 Azithromycin Inj 500 MG In NS 250 / 250 Inj 250 ML @ 250 mls/hr IV.SIG STAT STA Rx#:[id number] Levaquin 750 mg Premix Inj 150 150 / 150 ML @ 100 mls/hr IV.SIG Q48H JAQUI Rx#:[id number] Zosyn 3.375 GM Premix 50 ML @ 50 / 50 100 mls/hr IV.SIG ONCE ONE Rx#: [id number] NS Inj 2,000 ML @ Wide Open IV. 1000 / 1000 SIG BOLUS ONE Rx#:[id number] Vancomycin Inj 2,000 MG In NS 520 / 520 Inj 500 ML @ 250 mls/hr IV.SIG ONCE ONE Rx#:[id number] Oral 480 / 480 Other: # Urine Diapers 3 Date of Last Bowel Movement 11/10/17 Narrative: Unlabored breathing, on 3 L of oxygen via nasal cannula Coarse breath sounds bilaterally that are diminished in the bases No lower extremity edema, pulses are actually palpable bilateral feet His obese body habitus hinders any objective assessment for any mauro JVD Results - Labs CBC & Chem 7: 11/11/17 12:26 11/12/17 07:25 Laboratory Results - last 24 hr 11/11/17 11/11/17 11/11/17 12:26 12:26 12:26 WBC 9.9 RBC 3.31 L Hgb 10.0 L Hct 31.6 L MCV 95.4 MCH 30.2 MCHC 31.7 L RDW 20.5 H Plt Count 171 MPV 7.4 Neut % (Auto) 88.9 H Lymph % (Auto) 6.9 L Dixie % (Auto) 3.3 Eos % (Auto) 0.1 Baso % (Auto) 0.8 Neut # (Auto) 8.8 H Lymph # (Auto) 0.7 L Dixie # (Auto) 0.3 Eos # (Auto) 0.0 Baso # (Auto) 0.1 WBC Differential . Differential Comment Auto diff final PT 9.9 INR 1.0 Sodium 144 Potassium 5.0 Chloride 110 H Carbon Dioxide 25.5 Anion Gap 9 BUN 39 H Creatinine 2.42 H Estimated GFR 26 L Random Glucose 87 Calcium 7.7 L Magnesium 2.3 Total Bilirubin 0.3 AST 40 H ALT 26 Alkaline Phosphatase 256 H Total Creatine Kinase 62 Troponin I Less than 0.02 L B-Natriuretic Peptide Total Protein 7.5 Albumin 2.4 L TSH 4.820 H Random Vancomycin Blood Type Antibody Screen Antibody Identification Antigen Identification 11/11/17 11/11/17 11/11/17 12:26 12:26 12:30 WBC RBC Hgb Hct MCV MCH MCHC RDW Plt Count MPV Neut % (Auto) Lymph % (Auto) Dixie % (Auto) Eos % (Auto) Baso % (Auto) Neut # (Auto) Lymph # (Auto) Dixie # (Auto) Eos # (Auto) Baso # (Auto) WBC Differential Differential Comment PT INR Sodium Potassium Chloride Carbon Dioxide Anion Gap BUN Creatinine Estimated GFR Random Glucose Calcium Magnesium Total Bilirubin AST ALT Alkaline Phosphatase Total Creatine Kinase Troponin I B-Natriuretic Peptide 106 H Total Protein Albumin TSH Random Vancomycin Blood Type A Positive Antibody Screen Positive H Antibody Identification Anti-Ramona Antigen Identification Leb Antigen - NEGATIVE 11/12/17 11/12/17 07:25 07:25 WBC RBC Hgb Hct MCV MCH MCHC RDW Plt Count MPV Neut % (Auto) Lymph % (Auto) Dixie % (Auto) Eos % (Auto) Baso % (Auto) Neut # (Auto) Lymph # (Auto) Dixie # (Auto) Eos # (Auto) Baso # (Auto) WBC Differential Differential Comment PT INR Sodium 145 Potassium 4.3 Chloride 111 H Carbon Dioxide 28.2 Anion Gap 6 BUN 36 H Creatinine 2.37 H Estimated GFR 27 L Random Glucose 91 Calcium 7.7 L Magnesium Total Bilirubin AST ALT Alkaline Phosphatase Total Creatine Kinase Troponin I B-Natriuretic Peptide Total Protein Albumin TSH Random Vancomycin 21.6 Blood Type Antibody Screen Antibody Identification Antigen Identification Microbiology 11/11/17 22:04 Sputum - Expectorated Sputum Gram Stain - Final - Imaging Impressions Chest X-Ray 11/11/17 12:02 CONCLUSION: New bilateral basilar airspace consolidation concerning for pneumonia. The heart size appears enlarged and there is mild cephalization of pulmonary vasculature. This appearance is stable from prior exam. Assessment and Plan - Plan 77-year-old white male being admitted for acute hypoxic respiratory failure Acute hypoxic respiratory failure -Likely secondary to obvious pneumonia, -awaiting echo -Antibiotics as below -consider d-dimer if oxygenation does not improve in next 24 hrs, clinically not resembling a PE; wells score of 0. Refractory pneumonia -Risk of being multidrug-resistant at this point given that the patient has already undergone a course of Cipro, -vancomycin and Levaquin for now (both renally dosed). -legionella and pneumococcal urinary antigens ordered, awaiting sputum culture as well Acute renal injury -improving, low rate IVFs w/ albumin Nocturnal hypoxia - oxygenation as above anxiety/depression - duloxetine and remeron and xanax HYL and HTN - continue home coreg and crestor prostate cancer/bladder disease - home Myrbetriq and Flomax lovenox
[2017-11-12 10:58] LABS: Bacteria,Urine Rare /hpf; Bilirubin,Urine Negative (Negative); Clarity,Urine Clear (Clear); Color,Urine Yellow (Yellw/Straw); Glucose,Urine (UA) 50 mg/dL (Negative); Leukocyte Esterase,Urine Negative (Negative); Mucus,Urine Few /lpf (Occasional); Nitrite,Urine Negative (Negative); Specific Gravity,Urine 1.011 (1.002-1.035)
[2017-11-12] MEDS ORDERED: Vancomycin Inj 2,000 MG in Sodium Chlor 0.9% Inj 500 ML IV.SIG ONE (15:00)
[2017-11-12] MEDS: MIRTAZAPINE 30 MG PO SCH (20:49)
[2017-11-12] MEDS: Tolterodine Tartrate LA 2 MG Capsule PO SCH (20:49)
[2017-11-12] MEDS: Gabapentin 300 MG Capsule PO SCH (22:37)
[2017-11-13] MEDS: ALPRAZolam 0.5 MG Tablet PO PRN (00:26)
[2017-11-13] MEDS: Enoxaparin Inj 30 MG/0.3 ML Syringe SQ SCH (08:07)
[2017-11-13] MEDS: Furosemide 20 MG Tablet PO SCH (08:07)
[2017-11-13] MEDS: Carvedilol 6.25 MG Tablet PO SCH ×2 (08:07→20:51)
[2017-11-13] MEDS: Acetaminophen 325 MG Tablet PO PRN (08:14)
--- NOTE | 2017-11-13 09:21 | P.PN ---
Subjective Interval history: Follow-up visit pneumonia, respiratory failure, acute renal injury. Patient seen and examined today. Reports he is doing a lot better. States he continues to have cough, occasional sputum production. His only complaint now is his hemorrhoids bothering. Otherwise, denies pain and discomfort. Denies worsening SOB/ dyspnea. Denies chest pain, palpitations, headaches, dizziness. Denies fevers, chills, n/v/d. Denies dysuria. Physical Exam Vital signs: Vital Signs 11/12/17 09:45 11/12/17 12:00 11/12/17 13:23 Temperature 97.1 F L Pulse Rate 79 77 Respiratory Rate 16 14 Blood Pressure 127/58 L Pulse Oximetry 92 L 95 11/12/17 20:00 11/12/17 21:35 11/13/17 00:00 Temperature 98.1 F 98.3 F Pulse Rate 77 75 75 Respiratory Rate 18 18 18 Blood Pressure 174/80 H 178/80 H Pulse Oximetry 91 L 96 94 L 11/13/17 04:00 11/13/17 07:46 11/13/17 08:00 Temperature 97.9 F 97.1 F L Pulse Rate 80 72 85 Respiratory Rate 18 20 Blood Pressure 179/78 H 193/93 H Pulse Oximetry 93 L 94 L 11/13/17 08:33 Temperature Pulse Rate 80 Respiratory Rate 17 Blood Pressure Pulse Oximetry 93 L Intake & Output 11/12/17 11/13/17 11/13/17 18:59 06:59 18:59 Intake Total 570 / 570 50 / 50 536 / 536 Output Total 3 / 3 Balance 570 / 570 47 / 47 536 / 536 Weight 124.9 kg Intake: IV 570 / 570 50 / 50 536 / 536 NS Inj 1,000 ML @ 42 mls/hr IV. 536 / 536 CONT .[id number] JAQUI Rx#:[id number] Flexbumin 25% Inj 50 ML @ 60 50 / 50 50 / 50 mls/hr IV.SIG Q12H JAQUI Rx#: [id number] Vancomycin Inj 2,000 MG In NS 520 / 520 Inj 500 ML @ 250 mls/hr IV.SIG ONCE ONE Rx#:[id number] Output: Urine 3 / 3 Other: Date of Last Bowel Movement 11/10/17 11/10/17 Narrative: GENERAL: This is a well-nourished, well-developed patient, in no apparent distress. SKIN: Warm and dry. HEENT: Normocephalic. Pupils equal round and reactive. Nose without bleeding. Airway patent. NECK: Trachea midline. CARDIOVASCULAR: Regular rate and rhythm without murmurs, gallops, or rubs. RESPIRATORY: Coarse breath sounds. Mild wheezes. No rales, or rhonchi. GASTROINTESTINAL: Abdomen soft, non-tender, protuberant. Bowel Sounds normoactive x4. MUSCULOSKELETAL: Extremities without clubbing, cyanosis, or edema. NEUROLOGICAL: Awake and alert. Oriented to time, place, person. No focal neuro deficit. Moves all extremities. Normal speech. Results - Labs CBC & Chem 7: 11/11/17 12:26 11/12/17 07:25 Laboratory Results - last 24 hr 11/12/17 10:00 Urine Color Yellow Urine Clarity Clear Urine pH 6.0 Ur Specific [place] 1.011 Urine Protein 100 H Urine Glucose (UA) 50 Urine Ketones Trace Urine Occult Blood Negative Urine Nitrate Negative Urine Bilirubin Negative Urine Urobilinogen Less than 2 Ur Leukocyte Esterase Negative Urine RBC 1 Urine WBC 1 Urine Bacteria Rare H Urine Mucus Few H Micro UA Comment Culture not ind Urine Culture Comments Culture not ind Microbiology 11/13/17 03:00 Urine - Random Urine Legionella Antigen - Final Presumptive negative for Legionella pneumophila serogroup 1 antigen in urine, suggesting no recent or recurrent infection. Infection due to Legionella cannot be ruled out since other serogroups and species may cause disease, antigen may not be present in urine in early infection, and the level of antigen present in the urine may be below the detection limit of the test. 11/13/17 03:00 Urine - Random Urine Streptococcus pneumoniae Antigen (M - Final Presumptive negative for streptococcus pneumoniae antigen, suggesting no current or recent infection. Infection due to Streptococcus pneumoniae cannot be ruled out since the antigen present in the sample may be below the detection limit of the test. 11/11/17 22:04 Sputum - Expectorated Sputum Gram Stain - Final 11/11/17 22:04 Sputum - Expectorated Sputum Sputum Culture - Preliminary Immature growth - reincubate Assessment and Plan - Assessment (1) Pneumonia Code(s): J18.9 - Pneumonia, unspecified organism Status: Acute (2) Hypoxia Code(s): R09.02 - Hypoxemia Status: Acute - Plan 77-year-old white male being admitted for acute hypoxic respiratory failure. Acute hypoxic respiratory failure secondary to Pneumonia, CAP -Continue vancomycin, Levaquin renally dosed. He completed course of Cipro prior to hospitalization. -Chest x-ray showed New bilateral basilar airspace consolidation concerning for pneumonia. The heart size appears enlarged and there is mild cephalization of pulmonary vasculature. This appearance is stable from prior exam. -Echo pending -Duo nebs scheduled, as needed. Add Symbicort. Incentive spirometer use -DC IV fluids for now, Lasix 40 mg IV 1 dose -Continue O2 nasal cannula, patient uses this at home, wean off to be used during nighttime only. -Legionella and pneumococcal urinary antigen pending. Sputum culture reintubated. -Consider d-dimer if oxygenation does not improve in next 24 hrs, clinically not resembling a PE; wells score of 0. -Consider repeating chest x-ray tomorrow. Acute kidney injury on chronic kidney disease stage III -Baseline creatinine since 2017 2.2-2.4 -Continue albumin, avoid nephrotoxins -Monitor renal indicis. IV fluid for gentle hydration stopping for now secondary to possible fluid overload Nocturnal hypoxia -oxygen nasal cannula use at home Anxiety/depression -duloxetine and Remeron and Xanax HTN HLD -continue home Coreg and Crestor -Monitor BP trend Prostate cancer/bladder disease -home Myrbetriq and Flomax DVT prop Lovenox Code Status: Full Code Discussed Condition With: Patient, nursing Discharge Planning: Plan to DC home when clinically improved. (1) Pneumonia Qualifiers: Pneumonia type: due to unspecified organism Laterality: right Lung location : lower lobe of lung Qualified Code(s): J18.1 - Lobar pneumonia, unspecified organism
[2017-11-13] MEDS: Albumin Human 25% Inj 50 ML IV.SIG SCH (09:54)
[2017-11-13] MEDS: Sod Chloride 0.9% Inj 1,000 ML IV.CONT SCH (09:54)
[2017-11-13] MEDS: Hydrocortisone Acetate 25 MG Supp RECTAL SCH ×2 (11:08→20:52)
[2017-11-13] MEDS: Budesonide-Formoterol 80/4.5 MCG 6.9 GM Inhaler INH SCH ×2 (11:47→21:02)
--- NOTE | 2017-11-13 12:25 | ECHRPT ---
Indication: HEART FAILURE CONCLUSIONS Normal left ventricular size. Wall thickness is measured at the upper limits of normal. The left ventricular systolic function is normal with an estimated ejection fraction in the range of 50-55%. No definite wall motion abnormalities. Mild mitral annular calcification is present. Mild aortic valve sclerosis is present. Trace aortic valve regurgitation. BP: / HR: Rhythm: MEASUREMENTS (Male / Female) Normal Values Technical Quality: 2D ECHO LV Diastolic Diameter PLAX 5.8 cm 4.2 - 5.9 / 3.9 - 5.3 cm LV Systolic Diameter PLAX 4.4 cm IVS Diastolic Thickness 1.1 cm 0.6 - 1.0 / 0.6 - 0.9 cm LVPW Diastolic Thickness 0.9 cm 0.6 - 1.0 / 0.6 - 0.9 cm LV Relative Wall Thickness 0.4 RV Internal Dim ED PLAX 2.6 cm LA Systolic Diameter LX 4.4 cm 3.0 - 4.0 / 2.7 - 3.8 cm DOPPLER Mitral E Point Velocity 74.6 cm/s Mitral A Point Velocity 71.3 cm/s Mitral E to A Ratio 1.0 TR Peak Velocity 189.0 cm/s TR Peak Gradient 14.3 mmHg Right Atrial Pressure 10.0 mmHg Pulmonary Artery Systolic Pressu 24.3 mmHg Right Ventricular Systolic Press 24.3 mmHg FINDINGS LEFT VENTRICLE Normal left ventricular size. Wall thickness is measured at the upper limits of normal. The left ventricular systolic function is normal with an estimated ejection fraction in the range of 50-55%. No definite wall motion abnormalities. RIGHT VENTRICLE Normal right ventricular size and systolic function. LEFT ATRIUM The left atrial size is normal. RIGHT ATRIUM The right atrial size is normal. ATRIAL SEPTUM Normal atrial septal thickness without atrial level shunting by limited color doppler interrogation. AORTA The aortic root and proximal ascending aorta are normal in size on limited imaging. MITRAL VALVE Mild mitral annular calcification is present. AORTIC VALVE Mild aortic valve sclerosis is present. Trace aortic valve regurgitation. TRICUSPID VALVE There is trace tricuspid valve regurgitation. PULMONARY VALVE No pulmonary valve regurgitation or stenosis. VESSELS The inferior vena cava is normal in size. PERICARDIUM No pericardial effusion. Ben Benitez MD (Electronically Signed) Final Date:13 November 2017 12:24
--- NOTE | 2017-11-13 13:54 | P.PN ---
Subjective Interval history: Mr. Merchant is a 77-year-old white male well-known to me. He was admitted for increasing shortness of breath with hypoxemia. Chest x-ray was consistent with bilateral pneumonia. The patient has been receiving nebulizer treatment, IV antibiotics and supplemental oxygen. He states that he is feeling better. His cough has improved. He has remained afebrile. He remains on oxygen at 3 L/min per nasal cannula. The patient was constipated but had a bowel movement after suppository today. His appetite is good. He denies any nausea or vomiting. He has had no chest pain or palpitations. He does have a history of hypertension and remains on antihypertensive therapy. He is status post thyroidectomy. He normally receives levothyroxine 137 mcg daily. At the time of admission, his TSH was mildly elevated. He was placed on 12.5 mcg daily. He does have a history of GERD for which he normally has been receiving pantoprazole. This was not ordered at the time of admission. He has not had any definite GERD symptoms. He does have a history of prostate cancer and underwent previous treatment. He has a problem with chronic urinary incontinence. He does normally receive Myrbetriq and tamsulosin. The Myrbetriq is on hold as it was not formulary for the hospital. He is receiving Detrol LA. He has not been receiving the tamsulosin since admission. He remains incontinent. Active Medications Generic Name Dose Route Start Last Admin Trade Name Freq PRN Reason Stop Dose Admin Acetaminophen 650 mg 11/12/17 13:32 11/13/17 08:14 Tylenol PO 650 mg Q8H PRN Administration FEVER/PAIN 1-10 Albuterol 1 ampul 11/11/17 20:00 11/13/17 08:31 Duoneb Neb (Yovanny) NEB 1 ampul Q6HR WHILE AWAKE NEB YOVANNY Administration Alprazolam 0.5 mg 11/11/17 16:21 11/13/17 00:26 Xanax PO 0.5 mg BID PRN Administration Anxiety Atorvastatin Calcium 40 mg 11/11/17 21:00 11/12/17 22:37 Lipitor PO 40 mg HS YOVANNY Administration Budesonide/Formoterol Fumarate 1 puff 11/13/17 11:00 11/13/17 11:47 Symbicort 80/4.5 Mcg Inh INH 1 puff BID YOVANNY Administration Carvedilol 6.25 mg 11/11/17 21:00 11/13/17 08:07 Coreg PO 6.25 mg BID YOVANNY Administration Enoxaparin Sodium 30 mg 11/11/17 16:45 11/13/17 08:07 Lovenox Inj SQ 30 mg DAILY YOVANNY Administration Furosemide 20 mg 11/11/17 17:00 11/13/17 08:07 Lasix PO 20 mg DAILY YOVANNY Administration Gabapentin 300 mg 11/11/17 21:00 11/12/17 22:37 Neurontin PO 300 mg HS YOVANNY Administration Hydrocortisone Acetate 25 mg 11/13/17 10:45 11/13/17 11:08 Hemorrhoidal Hc Supp RECTAL 25 mg BID YOVANNY Administration Pharmacy Profile Note 0 mls @ 0 mls/hr 11/11/17 17:00 Vancomycin Consult Pharmacy OTHER [facility] As Directed Levofloxacin/Dextrose 150 mls @ 100 mls/hr 11/11/17 20:00 11/11/17 22:25 Levaquin 750 Mg Premix Inj IV.SIG Infused Q48H [facility] Infusion Levothyroxine Sodium 12.5 mcg 11/12/17 06:00 11/13/17 06:44 Synthroid PO 12.5 mcg DAILY@0600 [facility] Administration Levothyroxine Sodium 125 mcg 11/14/17 06:00 Synthroid PO DAILY@0600 [facility] Mirtazapine 30 mg 11/11/17 21:00 11/12/17 20:49 Remeron Soltab Odt PO 30 mg HS [facility] Administration Sodium Chloride 2 ml 11/11/17 12:02 Ns Flush IV.FLUSH PRN PRN FLUSH AFTER USING IV ACCESS Tolterodine Tartrate 2 mg 11/12/17 21:00 11/12/17 20:49 Detrol La PO 2 mg HS [facility] Administration Physical Exam Vital signs: Vital Signs 11/12/17 20:00 11/12/17 21:35 11/13/17 00:00 Temperature 98.1 F 98.3 F Pulse Rate 77 75 75 Respiratory Rate 18 18 18 Blood Pressure 174/80 H 178/80 H Pulse Oximetry 91 L 96 94 L 11/13/17 04:00 11/13/17 07:46 11/13/17 08:00 Temperature 97.9 F 97.1 F L Pulse Rate 80 72 85 Respiratory Rate 18 20 Blood Pressure 179/78 H 193/93 H Pulse Oximetry 93 L 94 L 11/13/17 08:33 11/13/17 12:00 Temperature 97.1 F L Pulse Rate 80 85 Respiratory Rate 17 20 Blood Pressure 172/73 H Pulse Oximetry 93 L 94 L Intake & Output 11/12/17 11/13/17 11/13/17 18:59 06:59 18:59 Intake Total 570 / 570 50 / 50 1390 / 1390 Output Total 3 / 3 3 / 3 Balance 570 / 570 47 / 47 1387 / 1387 Weight 275 lb 5.718 oz Intake: IV 570 / 570 50 / 50 1150 / 1150 NS Inj 1,000 ML @ 42 mls/hr IV. 1100 / 1100 CONT .[id number] YOVANNY Rx#:[id number] Flexbumin 25% Inj 50 ML @ 60 50 / 50 50 / 50 50 / 50 mls/hr IV.SIG Q12H [facility] Rx#: [id number] Vancomycin Inj 2,000 MG In NS 520 / 520 Inj 500 ML @ 250 mls/hr IV.SIG ONCE ONE Rx#:[id number] Oral 240 / 240 Output: Urine 3 / 3 2 / 2 Stool Other: Date of Last Bowel Movement 11/10/17 11/10/17 11/13/17 - Constitutional Comments: Obese elderly white male lying in bed with oxygen in place in no acute distress - Routine Neck Exam Present: supple, trachea midline Comments: No bruits - Routine Respiratory Exam Comments: Bilateral lungs reveal no wheezes or rales. There are some scattered upper airway rhonchi. Diminished breath sounds in the bases - Routine Cardiovascular Exam Present: RRR - Routine Abdominal Exam Comments: Soft, nontender, mild distention, obese, bowel sounds present - Routine Extremities Exam Comments: No edema or calf tenderness. No Homans sign. 2+ distal pulses Results - Labs CBC & Chem 7: 11/11/17 12:26 11/12/17 07:25 Microbiology 11/11/17 22:04 Sputum - Expectorated Sputum Gram Stain - Final 11/11/17 22:04 Sputum - Expectorated Sputum Sputum Culture - Preliminary 11/13/17 03:00 Urine - Random Urine Legionella Antigen - Final Presumptive negative for Legionella pneumophila serogroup 1 antigen in urine, suggesting no recent or recurrent infection. Infection due to Legionella cannot be ruled out since other serogroups and species may cause disease, antigen may not be present in urine in early infection, and the level of antigen present in the urine may be below the detection limit of the test. 11/13/17 03:00 Urine - Random Urine Streptococcus pneumoniae Antigen (M - Final Presumptive negative for streptococcus pneumoniae antigen, suggesting no current or recent infection. Infection due to Streptococcus pneumoniae cannot be ruled out since the antigen present in the sample may be below the detection limit of the test. - Imaging Echocardiogram reveals no significant valvular disease. Normal LV systolic function. Assessment and Plan - Assessment (1) Pneumonia Code(s): J18.9 - Pneumonia, unspecified organism Status: Acute Plan: The patient will continue to receive IV antibiotics. Will repeat white blood cell count. If it remains low, can transition patient to oral antibiotics. Continue with nebulizer treatments with albuterol. Continue to try to wean oxygen. The patient has been initiated on incentive spirometry to help with aeration of the lungs. He will be out of bed beginning tomorrow which should help as well. (2) Hypertension Code(s): I10 - Essential (primary) hypertension Status: Acute Plan: Blood pressure is high. Will order clonidine to be used as needed for elevated blood pressure readings. Patient has been receiving IV fluids which have been discontinued. Will monitor blood pressure and adjust medication as needed. (3) Hypothyroidism Code(s): E03.9 - Hypothyroidism, unspecified Status: Acute Plan: The patient is status post thyroidectomy. He normally receives levothyroxine 137 mcg daily. Will order appropriate replacement of thyroid. (4) Chronic kidney disease, stage III (moderate) Code(s): N18.3 - Chronic kidney disease, stage 3 (moderate) Status: Acute Plan: The patient normally has a creatinine between 2.0-2.5. His renal function is at baseline. Will follow. (5) Anemia due to chronic kidney disease Code(s): N18.9 - Chronic kidney disease, unspecified; D63.1 - Anemia in chronic kidney disease Status: Acute Plan: The patient has been receiving ferrous sulfate 325 mg daily and Procrit injections weekly to correct his anemia. Will repeat H&H. If hemoglobin <10.0 , will provide Procrit as patient is due for injection (6) GERD (gastroesophageal reflux disease) Code(s): K21.9 - Gastro-esophageal reflux disease without esophagitis Status: Acute (7) Constipation Code(s): K59.00 - Constipation, unspecified Status: Acute Plan: Resolved. Will resume daily MiraLAX which the patient normally takes at home. (8) Hyperlipidemia Code(s): E78.5 - Hyperlipidemia, unspecified Status: Acute Plan: Rosuvastatin on hold. Will resume at discharge (1) Pneumonia Qualifiers: Pneumonia type: due to unspecified organism Laterality: bilateral Lung location: lower lobe of lung Qualified Code(s): J18.1 - Lobar pneumonia, unspecified organism (2) Hypertension Qualifiers: Hypertension type: essential hypertension Qualified Code(s): I10 - Essential (primary) hypertension (3) Hypothyroidism Qualifiers: Hypothyroidism type: postoperative Qualified Code(s): E89.0 - Postprocedural hypothyroidism (8) Hyperlipidemia Qualifiers: Hyperlipidemia type: mixed hyperlipidemia Qualified Code(s): E78.2 - Mixed hyperlipidemia
[2017-11-13] MEDS: Gabapentin 300 MG Capsule PO SCH (20:51)
[2017-11-13] MEDS: Tolterodine Tartrate LA 2 MG Capsule PO SCH (20:51)
[2017-11-13] MEDS: MIRTAZAPINE 30 MG PO SCH (20:53)
[2017-11-14] MEDS: Levothyroxine 125 MCG Tablet PO SCH (06:09)
[2017-11-14] MEDS: Acetaminophen 325 MG Tablet PO PRN ×2 (06:13→16:49)
[2017-11-14 07:14] LABS: Baso # (Auto) 0.1 th/mm3 (0.0-0.2); Baso % (Auto) 1.4 % (0.0-2.0); Eos % (Auto) 0.5 % (0.0-4.0); Hematocrit 28.6 % (39.0-51.0); Hemoglobin 9.1 gm/dL (13.0-17.0); Lymph # (Auto) 0.6 th/mm3 (1.0-4.8); Lymph % (Auto) 9.6 % (9.0-44.0); Mean Corpuscular HGB Conc 31.8 % (32.0-36.0); Mean Corpuscular Hemoglobin 29.9 pg (27.0-34.0); Mean Corpuscular Volume 94.1 fL (80.0-100.0); Mean Platelet Volume 6.9 fL (7.0-11.0); Mono # (Auto) 0.3 th/mm3 (0.0-0.9); Mono % (Auto) 5.1 % (0.0-8.0); Neut # (Auto) 5.1 th/mm3 (1.8-7.7); Neut % (Auto) 83.4 % (16.0-70.0); Platelet Count 126 th/mm3 (150-450); Red Blood Count 3.04 mil/mm3 (4.50-5.90); Red Cell Distribution Width 20.2 % (11.6-17.2); White Blood Count 6.1 th/mm3 (4.0-11.0)
[2017-11-14 07:53] LABS: Alanine Aminotransferase 20 U/L (12-78); Albumin 2.3 g/dL (3.4-5.0); Anion Gap 8 meq/L (5-15); Aspartate Aminotransferase 18 U/L (15-37); Blood Urea Nitrogen 34 mg/dL (7-18); Calcium 8.2 mg/dL (8.5-10.1); Carbon Dioxide 29.1 meq/L (21.0-32.0); Chloride 110 meq/L (98-107); Glomerular Filtration Rate 24 mL/min (>89); Glucose,Random 101 mg/dL (74-106); Potassium 4.2 meq/L (3.5-5.1); Sodium 147 meq/L (136-145)
[2017-11-14 07:55] LABS: Alkaline Phosphatase 244 U/L (45-117); Vancomycin,Random 22.7 Comment
[2017-11-14] MEDS: Enoxaparin Inj 30 MG/0.3 ML Syringe SQ SCH (08:12)
[2017-11-14] MEDS: Carvedilol 6.25 MG Tablet PO SCH ×2 (08:13→21:09)
[2017-11-14] MEDS: Furosemide 20 MG Tablet PO SCH (08:13)
[2017-11-14] MEDS: Hydrocortisone Acetate 25 MG Supp RECTAL SCH ×2 (08:13→21:15)
[2017-11-14] MEDS: Polyethylene Glycol 3350 17 GM Packet PO SCH (08:14)
[2017-11-14] MEDS: Budesonide-Formoterol 80/4.5 MCG 6.9 GM Inhaler INH SCH ×2 (08:16→21:10)
--- NOTE | 2017-11-14 12:06 | P.PN ---
Subjective Interval history: Patient reports minimal cough. Comfortable with oxygen at 3 L/min per nasal cannula. Oxygen saturations 95%. He was out of bed for several hours this morning. He transferred back to bed with standby assistance of the nurse. Bowels moving well. Appetite good. Denies any chest pain, nausea, vomiting or abdominal pain. Blood pressure remains elevated. He is receiving carvedilol and furosemide. Normally patient has been receiving amlodipine at home but it was not ordered at the time of admission. Active Medications Generic Name Dose Route Start Last Admin Trade Name Freq PRN Reason Stop Dose Admin Acetaminophen 650 mg 11/12/17 13:32 11/14/17 06:13 Tylenol PO 650 mg Q8H PRN Administration FEVER/PAIN 1-10 Albuterol 1 ampul 11/11/17 20:00 11/14/17 08:07 Duoneb Neb (Yovanny) NEB 1 ampul Q6HR WHILE AWAKE NEB YOVANNY Administration Alprazolam 0.5 mg 11/11/17 16:21 11/13/17 00:26 Xanax PO 0.5 mg BID PRN Administration Anxiety Amlodipine Besylate 5 mg 11/14/17 12:00 Norvasc PO DAILY YOVANNY Atorvastatin Calcium 40 mg 11/11/17 21:00 11/13/17 20:52 Lipitor PO 40 mg HS YOVANNY Administration Budesonide/Formoterol Fumarate 1 puff 11/13/17 11:00 11/14/17 08:16 Symbicort 80/4.5 Mcg Inh INH 1 puff BID YOVANNY Administration Carvedilol 6.25 mg 11/11/17 21:00 11/14/17 08:13 Coreg PO 6.25 mg BID YOVANNY Administration Clonidine HCl 0.1 mg 11/13/17 16:01 Catapres PO Q6H PRN SBP>180, DBP>100, HR>65 Clonidine HCl 0.1 mg 11/14/17 11:49 Catapres PO Q8HR PRN SBP>160, DBP>90 Enoxaparin Sodium 30 mg 11/11/17 16:45 11/14/17 08:12 Lovenox Inj SQ 30 mg DAILY YOVANNY Administration Furosemide 20 mg 11/11/17 17:00 11/14/17 08:13 Lasix PO 20 mg DAILY YOVANNY Administration Gabapentin 300 mg 11/11/17 21:00 11/13/17 20:51 Neurontin PO 300 mg HS YOVANNY Administration Hydrocortisone Acetate 25 mg 11/13/17 10:45 11/14/17 08:13 Hemorrhoidal Hc Supp RECTAL 25 mg BID YOVANNY Administration Pharmacy Profile Note 0 mls @ 0 mls/hr 11/11/17 17:00 Vancomycin Consult Pharmacy OTHER [facility] As Directed Levofloxacin/Dextrose 150 mls @ 100 mls/hr 11/11/17 20:00 11/14/17 03:19 Levaquin 750 Mg Premix Inj IV.SIG Infused Q48H YOVANNY Infusion Levothyroxine Sodium 12.5 mcg 11/12/17 06:00 11/14/17 06:10 Synthroid PO 12.5 mcg DAILY@0600 YOVANNY Administration Levothyroxine Sodium 125 mcg 11/14/17 06:00 11/14/17 06:09 Synthroid PO 125 mcg DAILY@0600 YOVANNY Administration Mirtazapine 30 mg 11/11/17 21:00 11/13/17 20:53 Remeron Soltab Odt PO 30 mg HS YOVANNY Administration Pantoprazole Sodium 40 mg 11/13/17 13:45 11/14/17 08:14 Protonix PO 40 mg DAILY YOVANNY Administration Polyethylene Glycol 17 gm 11/14/17 09:00 11/14/17 08:14 Miralax PO 17 gm DAILY YOVANNY Administration Sodium Chloride 2 ml 11/11/17 12:02 Ns Flush IV.FLUSH PRN PRN FLUSH AFTER USING IV ACCESS Tamsulosin HCl 0.4 mg 11/13/17 21:00 11/14/17 08:13 Flomax PO 0.4 mg DAILY YOVANNY Administration Tolterodine Tartrate 2 mg 11/12/17 21:00 11/13/17 20:51 Detrol La PO 2 mg HS YOVANNY Administration Physical Exam Vital signs: Vital Signs 11/13/17 12:00 11/13/17 13:56 11/13/17 14:03 Temperature 97.1 F L Pulse Rate 85 70 73 Respiratory Rate 20 17 Blood Pressure 172/73 H Pulse Oximetry 94 L 11/13/17 16:00 11/13/17 18:00 11/13/17 19:44 Temperature 98 F Pulse Rate 68 71 69 Respiratory Rate 18 Blood Pressure 169/74 H Pulse Oximetry 95 11/13/17 19:45 11/13/17 20:00 11/13/17 20:25 Temperature 98.0 F Pulse Rate 70 67 Respiratory Rate 18 Blood Pressure 171/77 H Pulse Oximetry 96 96 11/14/17 00:00 11/14/17 00:05 11/14/17 04:00 Temperature 97.8 F 97.9 F Pulse Rate 71 72 73 Respiratory Rate 18 18 Blood Pressure 174/81 H 173/84 H Pulse Oximetry 95 95 11/14/17 08:00 11/14/17 08:05 11/14/17 08:06 Temperature 96.4 F L Pulse Rate 77 79 Respiratory Rate 18 16 Blood Pressure 172/77 H Pulse Oximetry 94 L 93 L 11/14/17 09:00 Temperature Pulse Rate 74 Respiratory Rate Blood Pressure Pulse Oximetry Intake & Output 11/13/17 11/14/17 11/14/17 18:59 06:59 18:59 Intake Total 1390 / 1390 150 / 150 Output Total 3 / 3 Balance 1387 / 1387 150 / 150 Weight 275 lb 5.718 oz Intake: IV 1150 / 1150 150 / 150 NS Inj 1,000 ML @ 42 mls/hr IV. 1100 / 1100 CONT .[id number] YOVANNY Rx#:[id number] Flexbumin 25% Inj 50 ML @ 60 50 / 50 mls/hr IV.SIG Q12H YOVANNY Rx#: [id number] Levaquin 750 mg Premix Inj 150 150 / 150 ML @ 100 mls/hr IV.SIG Q48H YOVANNY Rx#:[id number] Oral 240 / 240 Output: Urine 2 / 2 Stool 1 / 1 Other: # Incontinent Voids 1 Date of Last Bowel Movement 11/13/17 11/13/17 # Bowel Movements 2 # Incontinent Bowel Movements 1 Narrative: Cardiovascular: Regular rate and rhythm Lungs: Clear to auscultation with good air exchange. No wheezes, rhonchi or rales Abdomen: Obese, soft, nontender, mild distention with bowel sounds active Extremities: No edema. No calf tenderness. No Homans sign Results - Labs CBC & Chem 7: 11/14/17 06:10 11/14/17 06:10 Laboratory Results - last 24 hr 11/14/17 11/14/17 06:10 06:10 WBC 6.1 RBC 3.04 L Hgb 9.1 L Hct 28.6 L MCV 94.1 MCH 29.9 MCHC 31.8 L RDW 20.2 H Plt Count 126 L MPV 6.9 L Neut % (Auto) 83.4 H Lymph % (Auto) 9.6 Gray % (Auto) 5.1 Eos % (Auto) 0.5 Baso % (Auto) 1.4 Neut # (Auto) 5.1 Lymph # (Auto) 0.6 L Gray # (Auto) 0.3 Eos # (Auto) 0.0 Baso # (Auto) 0.1 WBC Differential . Differential Comment Auto diff final Sodium 147 H Potassium 4.2 Chloride 110 H Carbon Dioxide 29.1 Anion Gap 8 BUN 34 H Creatinine 2.56 H Estimated GFR 24 L Random Glucose 101 Calcium 8.2 L Total Bilirubin 0.3 AST 18 ALT 20 Alkaline Phosphatase 244 H Total Protein 7.0 Albumin 2.3 L Random Vancomycin 22.7 Microbiology 11/11/17 22:04 Sputum - Expectorated Sputum Gram Stain - Final 11/11/17 22:04 Sputum - Expectorated Sputum Sputum Culture - Final 11/13/17 03:00 Urine - Random Urine Legionella Antigen - Final Presumptive negative for Legionella pneumophila serogroup 1 antigen in urine, suggesting no recent or recurrent infection. Infection due to Legionella cannot be ruled out since other serogroups and species may cause disease, antigen may not be present in urine in early infection, and the level of antigen present in the urine may be below the detection limit of the test. 11/13/17 03:00 Urine - Random Urine Streptococcus pneumoniae Antigen (M - Final Presumptive negative for streptococcus pneumoniae antigen, suggesting no current or recent infection. Infection due to Streptococcus pneumoniae cannot be ruled out since the antigen present in the sample may be below the detection limit of the test. Assessment and Plan - Assessment (1) Pneumonia Code(s): J18.9 - Pneumonia, unspecified organism Status: Acute Plan: Clinically improved. Will begin to wean oxygen as tolerated. Will decrease frequency of nebulizer treatments. Transition patient to oral antibiotics. Increase activity. If patient does well with oral antibiotics, will plan to discharge home tomorrow with close outpatient follow-up. He may need to be on oxygen continuously at home at least for the short-term until the pneumonia completely resolves. He does have a portable oxygen concentrator at home. (2) Hypertension Code(s): I10 - Essential (primary) hypertension Status: Acute Plan: Blood pressure is high. Will order clonidine to be used as needed for elevated blood pressure readings. Patient has been receiving IV fluids which have been discontinued. Will monitor blood pressure and adjust medication as needed. (3) Hypothyroidism Code(s): E03.9 - Hypothyroidism, unspecified Status: Acute Plan: The patient is status post thyroidectomy. Continue with levothyroxine 137 MCG daily. Will repeat TSH as outpatient in 4-6 weeks. (4) Chronic kidney disease, stage III (moderate) Code(s): N18.3 - Chronic kidney disease, stage 3 (moderate) Status: Acute Plan: Renal function stable. Will follow. (5) Anemia due to chronic kidney disease Code(s): N18.9 - Chronic kidney disease, unspecified; D63.1 - Anemia in chronic kidney disease Status: Acute Plan: will provide the patient with Procrit 40,000 units subcutaneously today for hemoglobin less than 10.0. Follow H&H. Resume ferrous sulfate at discharge. (6) GERD (gastroesophageal reflux disease) Code(s): K21.9 - Gastro-esophageal reflux disease without esophagitis Status: Acute Plan: Continue with pantoprazole. (7) Constipation Code(s): K59.00 - Constipation, unspecified Status: Acute Plan: Resolved. Continue with MiraLAX. (8) Hyperlipidemia Code(s): E78.5 - Hyperlipidemia, unspecified Status: Acute Plan: Patient currently receiving atorvastatin. Will resume rosuvastatin at discharge. (9) Hypernatremia Code(s): E87.0 - Hyperosmolality and hypernatremia Status: Acute Plan: Will encourage oral fluid intake. Follow-up sodium level in a.m. (1) Pneumonia Qualifiers: Pneumonia type: due to unspecified organism Laterality: bilateral Lung location: lower lobe of lung Qualified Code(s): J18.1 - Lobar pneumonia, unspecified organism (2) Hypertension Qualifiers: Hypertension type: essential hypertension Qualified Code(s): I10 - Essential (primary) hypertension (3) Hypothyroidism Qualifiers: Hypothyroidism type: postoperative Qualified Code(s): E89.0 - Postprocedural hypothyroidism (8) Hyperlipidemia Qualifiers: Hyperlipidemia type: mixed hyperlipidemia Qualified Code(s): E78.2 - Mixed hyperlipidemia
[2017-11-14] MEDS: amLODIPine 5 MG Tablet PO SCH (12:24)
[2017-11-14] MEDS: Tolterodine Tartrate LA 2 MG Capsule PO SCH (21:09)
[2017-11-14] MEDS: Gabapentin 300 MG Capsule PO SCH (21:09)
[2017-11-14] MEDS: MIRTAZAPINE 30 MG PO SCH (21:10)
[2017-11-14] MEDS: ALPRAZolam 0.5 MG Tablet PO PRN (21:15)
[2017-11-15] MEDS: Levothyroxine 125 MCG Tablet PO SCH (05:55)
[2017-11-15] MEDS ORDERED: levoFLOXacin 750 MG Tablet PO SCH (09:00)
--- NOTE | 2017-11-15 09:00 | P.PN ---
Subjective Interval history: The patient is out of bed in a chair. Appetite good. Had some loose stools last night but none since. Denies any nausea or abdominal pain. Remains on oxygen at 2 L/min per nasal cannula. Denies any cough or sputum production. He has remained afebrile. Blood pressure under much better control with resuming amlodipine. He denies any chest pain or palpitations. Active Medications Generic Name Dose Route Start Last Admin Trade Name Freq PRN Reason Stop Dose Admin Acetaminophen 650 mg 11/12/17 13:32 11/14/17 16:49 Tylenol PO 650 mg Q8H PRN Administration FEVER/PAIN 1-10 Albuterol 1 ampul 11/11/17 20:00 11/15/17 08:29 Duoneb Neb (Yovanny) NEB 1 ampul Q6HR WHILE AWAKE NEB YOVANNY Administration Alprazolam 0.5 mg 11/11/17 16:21 11/14/17 21:15 Xanax PO 0.5 mg BID PRN Administration Anxiety Amlodipine Besylate 5 mg 11/14/17 12:00 11/14/17 12:24 Norvasc PO 5 mg DAILY YOVANNY Administration Atorvastatin Calcium 40 mg 11/11/17 21:00 11/14/17 21:10 Lipitor PO 40 mg HS YOVANNY Administration Budesonide/Formoterol Fumarate 1 puff 11/13/17 11:00 11/14/17 21:10 Symbicort 80/4.5 Mcg Inh INH 1 puff BID YOVANNY Administration Carvedilol 6.25 mg 11/11/17 21:00 11/14/17 21:09 Coreg PO 6.25 mg BID YOVANNY Administration Clonidine HCl 0.1 mg 11/14/17 11:49 11/14/17 21:09 Catapres PO 0.1 mg Q8HR PRN Administration SBP>160, DBP>90 Doxycycline Hyclate 100 mg 11/14/17 17:00 11/15/17 05:55 Vibramycin PO 100 mg Q12H YOVANNY Administration Enoxaparin Sodium 30 mg 11/11/17 16:45 11/14/17 08:12 Lovenox Inj SQ 30 mg DAILY YOVANNY Administration Epoetin Mario 40,000 unit 11/15/17 08:51 Epogen Inj SQ 11/15/17 08:52 ONCE ONE Furosemide 20 mg 11/11/17 17:00 11/14/17 08:13 Lasix PO 20 mg DAILY YOVANNY Administration Gabapentin 300 mg 11/11/17 21:00 11/14/17 21:09 Neurontin PO 300 mg HS YOVANNY Administration Hydrocortisone Acetate 25 mg 11/13/17 10:45 11/14/17 21:15 Hemorrhoidal Hc Supp RECTAL Not Given BID YOVANNY Levofloxacin 750 mg 11/15/17 09:00 Levaquin PO Q48H YOVANNY Levothyroxine Sodium 12.5 mcg 11/12/17 06:00 11/15/17 05:55 Synthroid PO 12.5 mcg DAILY@0600 YOVANNY Administration Levothyroxine Sodium 125 mcg 11/14/17 06:00 11/15/17 05:55 Synthroid PO 125 mcg DAILY@0600 YOVANNY Administration Mirtazapine 30 mg 11/11/17 21:00 11/14/17 21:10 Remeron Soltab Odt PO 30 mg HS YOVANNY Administration Pantoprazole Sodium 40 mg 11/13/17 13:45 11/14/17 08:14 Protonix PO 40 mg DAILY YOVANNY Administration Polyethylene Glycol 17 gm 11/14/17 09:00 11/14/17 08:14 Miralax PO 17 gm DAILY YOVANNY Administration Sodium Chloride 2 ml 11/11/17 12:02 11/14/17 21:09 Ns Flush IV.FLUSH 2 ml PRN PRN Administration FLUSH AFTER USING IV ACCESS Tamsulosin HCl 0.4 mg 11/13/17 21:00 11/14/17 08:13 Flomax PO 0.4 mg DAILY YOVANNY Administration Tolterodine Tartrate 2 mg 11/12/17 21:00 11/14/17 21:09 Detrol La PO 2 mg HS YOVANNY Administration Physical Exam Vital signs: Vital Signs 11/14/17 09:00 11/14/17 12:00 11/14/17 16:00 Temperature 99.5 F Pulse Rate 74 73 75 Respiratory Rate 20 Blood Pressure 168/77 H Pulse Oximetry 93 L 11/14/17 20:00 11/14/17 20:13 11/15/17 00:00 Temperature 97.9 F 98.1 F Pulse Rate 74 73 72 Respiratory Rate 18 18 18 Blood Pressure 173/83 H 139/86 Pulse Oximetry 94 L 94 L 95 11/15/17 00:57 11/15/17 04:00 11/15/17 08:29 Temperature 98.5 F Pulse Rate 75 89 Respiratory Rate 18 26 H Blood Pressure 147/79 H Pulse Oximetry 93 L 94 L Intake & Output 11/14/17 11/15/17 11/15/17 18:59 06:59 18:59 Intake Total 360 / 360 500 / 500 Output Total 3 / 3 Balance 360 / 360 497 / 497 Intake: Oral 360 / 360 500 / 500 Output: Urine 2 / 2 Stool 1 / Other: Date of Last Bowel Movement 11/14/17 Narrative: Cardiovascular: Regular rate and rhythm Lungs: Clear to auscultation without wheezes, rhonchi or rales Abdomen: Obese, soft, nontender with bowel sounds present Extremities: No edema or calf tenderness. No Homans sign Results - Labs CBC & Chem 7: 11/14/17 06:10 11/14/17 06:10 Microbiology 11/11/17 22:04 Sputum - Expectorated Sputum Gram Stain - Final 11/11/17 22:04 Sputum - Expectorated Sputum Sputum Culture - Final Assessment and Plan - Assessment (1) Pneumonia Code(s): J18.9 - Pneumonia, unspecified organism Status: Acute Plan: Clinically improved. Patient will complete course of oral antibiotics as outpatient. He has oxygen at home. Will continue to wean oxygen during the day as an outpatient. He chronically uses oxygen at 2 L/min per nasal cannula at night. Will discontinue nebulizer treatments. (2) Hypertension Code(s): I10 - Essential (primary) hypertension Status: Acute Plan: Blood pressure is under much better control with adding amlodipine. Will follow. (3) Hypothyroidism Code(s): E03.9 - Hypothyroidism, unspecified Status: Acute Plan: The patient is status post thyroidectomy. Continue with levothyroxine 137 MCG daily. Will repeat TSH as outpatient in 4-6 weeks. (4) Chronic kidney disease, stage III (moderate) Code(s): N18.3 - Chronic kidney disease, stage 3 (moderate) Status: Acute Plan: Awaiting this morning's labs. Need to ensure renal function is stable. (5) Anemia due to chronic kidney disease Code(s): N18.9 - Chronic kidney disease, unspecified; D63.1 - Anemia in chronic kidney disease Status: Acute Plan: will provide the patient with Procrit 40,000 units subcutaneously today for hemoglobin less than 10.0. Follow H&H. Resume ferrous sulfate at discharge. (6) GERD (gastroesophageal reflux disease) Code(s): K21.9 - Gastro-esophageal reflux disease without esophagitis Status: Acute Plan: Continue with pantoprazole. (7) Constipation Code(s): K59.00 - Constipation, unspecified Status: Acute Plan: Resolved. Continue with MiraLAX. (8) Hyperlipidemia Code(s): E78.5 - Hyperlipidemia, unspecified Status: Acute Plan: Patient currently receiving atorvastatin. Will resume rosuvastatin at discharge. (9) Hypernatremia Code(s): E87.0 - Hyperosmolality and hypernatremia Status: Acute Plan: Awaiting this morning's lab work. His sodium has not increased any further or decreased, can discharge home later today. (1) Pneumonia Qualifiers: Pneumonia type: due to unspecified organism Laterality: bilateral Lung location: lower lobe of lung Qualified Code(s): J18.1 - Lobar pneumonia, unspecified organism (2) Hypertension Qualifiers: Hypertension type: essential hypertension Qualified Code(s): I10 - Essential (primary) hypertension (3) Hypothyroidism Qualifiers: Hypothyroidism type: postoperative Qualified Code(s): E89.0 - Postprocedural hypothyroidism (8) Hyperlipidemia Qualifiers: Hyperlipidemia type: mixed hyperlipidemia Qualified Code(s): E78.2 - Mixed hyperlipidemia
[2017-11-15 09:02] LABS: Baso # (Auto) 0.1 th/mm3 (0.0-0.2); Baso % (Auto) 1.3 % (0.0-2.0); Eos # (Auto) 0.1 th/mm3 (0.0-0.4); Eos % (Auto) 0.9 % (0.0-4.0); Hemoglobin 8.7 gm/dL (13.0-17.0); Lymph # (Auto) 0.8 th/mm3 (1.0-4.8); Lymph % (Auto) 13.8 % (9.0-44.0); Mean Corpuscular HGB Conc 32.4 % (32.0-36.0); Mean Corpuscular Hemoglobin 30.2 pg (27.0-34.0); Mean Corpuscular Volume 93.3 fL (80.0-100.0); Mono # (Auto) 0.3 th/mm3 (0.0-0.9); Mono % (Auto) 4.5 % (0.0-8.0); Neut # (Auto) 4.9 th/mm3 (1.8-7.7); Neut % (Auto) 79.5 % (16.0-70.0); Platelet Count 151 th/mm3 (150-450); Red Blood Count 2.89 mil/mm3 (4.50-5.90); Red Cell Distribution Width 19.5 % (11.6-17.2); White Blood Count 6.1 th/mm3 (4.0-11.0)
[2017-11-15] MEDS: Enoxaparin Inj 30 MG/0.3 ML Syringe SQ SCH (09:30)
[2017-11-15] MEDS: Carvedilol 6.25 MG Tablet PO SCH (09:30)
[2017-11-15] MEDS: amLODIPine 5 MG Tablet PO SCH (09:30)
[2017-11-15] MEDS: Furosemide 20 MG Tablet PO SCH (09:30)
[2017-11-15] MEDS: Budesonide-Formoterol 80/4.5 MCG 6.9 GM Inhaler INH SCH (09:31)
[2017-11-15 09:44] LABS: Calcium 9.1 mg/dL (8.5-10.1); Potassium 3.8 meq/L (3.5-5.1)
[2017-11-15] MEDS: Acetaminophen 325 MG Tablet PO PRN (10:26)
[2017-11-15] MEDS: Polyethylene Glycol 3350 17 GM Packet PO SCH (12:28)
--- NOTE | 2017-11-29 12:11 | P.DS ---
Date of admission: 11/11/17 15:29 Primary care physician: Mitch Silver MD Attending physician on discharge: Mitch Silver Anticipated date of discharge: 12/16/17 Brief History from admission: 77-year-old white male being admitted for acute hypoxic respiratory failure. Patient was in his usual state of health until about 2 weeks ago and began experiencing a wet cough and progressive fatigue. Denies having any chest pain or any mauro shortness of breath, fevers chills, nausea vomiting. Says he completed a regimen of Cipro prednisone and albuterol but his symptoms persisted. Thus his Caregiver called 911. Upon presenting to the emergency department his sats were noted to be in the 80s. It took 4 L to bring his sats in the low 90s. His renal function also showed acute impairment as well with a creatinine elevated greater than 2.4. Chest x-ray was performed which showed obvious right-sided infiltrates upon my independent review. He was given 1 dose of azithromycin and Zosyn. Pt says at home he wears 2 L of O2 at night. DS: Diagnosis - Discharge Diagnosis (1) Pneumonia Status: Acute (2) Hypertension Status: Chronic (3) Hypothyroidism Status: Chronic (4) Chronic kidney disease, stage III (moderate) Status: Chronic (5) Anemia due to chronic kidney disease Status: Chronic (6) GERD (gastroesophageal reflux disease) Status: Chronic (7) Constipation Status: Chronic (8) Hyperlipidemia Status: Chronic DS: Summary Hospital Course: the patient was admitted to medical surgical bed with telemetry. He was placed in December, oxygen, nebulizer treatments and IV antibiotics. His respiratory status continued to improve slowly. He had a decrease in cough. The patient had a decrease in H&H. He has a history of chronic kidney disease with a usual creatinine level of 2.0-2.6, therefore, his current renal function was at his baseline. However, he has anemia due to chronic kidney disease. His H&H decrease below 10. He received an injection of Procrit which she has been receiving at home for his anemia associated with chronic kidney disease. The patient's appetite improved. His bowels were moving. He was voiding well. On the day of discharge, minimal cough. His oxygen saturation still remained below 90% on room air. He was discharged home on oxygen at 2 L/m per nasal cannula continuously. He was transitioned to oral antibiotics. He is instructed to followup with the undersigned physician in one week after discharge. The patient should call the undersigned physician for any increasing shortness of breath, increasing cough, fever, chills, nausea or vomiting. His discharge medications are listed on the medication reconciliation sheet. - Time Spent with Patient Total time spent providing and/or coordinating discharge services: - Quality: VTE Deep Vein Thrombosis/Pulmonary Embolism Present on Admission: No Results Procedures completed during hospitalization: None - Impressions ITS Impressions Chest X-Ray 11/11/17 12:02 CONCLUSION: New bilateral basilar airspace consolidation concerning for pneumonia. The heart size appears enlarged and there is mild cephalization of pulmonary vasculature. This appearance is stable from prior exam. Discharge Plan - Discharge Disposition Patient Disposition: 01 Discharge Home - Discharge Condition Condition: Stable - Discharge Order Discharge Orders: Discharge Order (Routine); Ordered 11/15/17 Ordered By: Mitch Silver - Discharge Details Anticipated Discharge Date: 11/15/17 - Physicians Team Primary Care Provider: Mitch Silver Attending Provider: Mitch Silver
== END 2017-11-15 14:14 | disposition home or self-care (01) ==
LOC: NEPE 11:54 → NEDA 15:29 → N05 19:30
PROVIDERS: ADMIT Family Medicine; ATTEND Family Medicine

== ENCOUNTER 2018-03-26 10:43 | Inpatient (IN) ==
[2018-03-26 11:42] LABS: Baso % (Auto) 0.4 % (0.0-2.0); Eos % (Auto) 0.1 % (0.0-4.0); Hematocrit 28.5 % (39.0-51.0); Hemoglobin 9.1 gm/dL (13.0-17.0); Lymph # (Auto) 0.6 th/mm3 (1.0-4.8); Lymph % (Auto) 8.7 % (9.0-44.0); Mean Corpuscular Hemoglobin 30.8 pg (27.0-34.0); Mean Corpuscular Volume 96.2 fL (80.0-100.0); Mean Platelet Volume 7.5 fL (7.0-11.0); Mono # (Auto) 0.4 th/mm3 (0.0-0.9); Mono % (Auto) 5.6 % (0.0-8.0); Neut # (Auto) 5.6 th/mm3 (1.8-7.7); Neut % (Auto) 85.2 % (16.0-70.0); Platelet Count 112 th/mm3 (150-450); Red Blood Count 2.96 mil/mm3 (4.50-5.90); Red Cell Distribution Width 20.7 % (11.6-17.2); White Blood Count 6.6 th/mm3 (4.0-11.0)
--- NOTE | 2018-03-26 11:47 | XR ---
EXAM DATE: 03/26/2018 11:42 AM EST AGE/SEX: 78 years / Male INDICATIONS: . Coughing up blood, short of breath. CLINICAL DATA: This is the patient's initial encounter. Patient reports that signs and symptoms have been present for 1 day and indicates a pain score of 0/10. MEDICAL/SURGICAL HISTORY: Chronic obstructive pulmonary disease. None. COMPARISON: [facility] [place], CHEST 1V SINGLE AP, 11/11/2017. . FINDINGS: PA and lateral views of the thorax demonstrate areas of infiltrate involving the right and left lower lobe. In addition, there is a 1.7 cm dense nodule on the left and a 1.0 cm nodule seen on the right. These appear quite dense. They are however new when compared to the patient's previous examination. CT imaging through the thorax with contrast would be warranted for more thorough assessment. The heart is mildly enlarged. There are degenerative changes in the shoulders bilaterally. CONCLUSION: 1. There are bilateral pulmonary nodules 1.7 cm on the right 1 cm on the left these appear almost ca lcific density but are new compared to previous dated 11/11/2017. CT imaging of the thorax is warrante d for further assessment. 2. Bibasilar areas of infiltrate suggesting a pneumonia. Electronically signed by: Jose J Yu MD 03/26/2018 11:46 AM EST
[2018-03-26] MEDS ORDERED: Vancomycin Inj 1,000 MG in Sodium Chlor 0.9% Inj 250 ML IV.SIG ONE (11:54)
[2018-03-26] MEDS ORDERED: Azithromycin Inj 500 MG in Sodium Chlor 0.9% Inj 250 ML IV.SIG ONE (11:54)
[2018-03-26 11:55] LABS: Alanine Aminotransferase 22 U/L (12-78); Albumin 2.8 g/dL (3.4-5.0); Anion Gap 5 meq/L (5-15); Aspartate Aminotransferase 17 U/L (15-37); Blood Urea Nitrogen 51 mg/dL (7-18); Carbon Dioxide 29.3 meq/L (21.0-32.0); Chloride 110 meq/L (98-107); Glomerular Filtration Rate 25 mL/min (>89); Glucose,Random 125 mg/dL (74-106); Potassium 4.3 meq/L (3.5-5.1); Sodium 144 meq/L (136-145)
[2018-03-26 11:59] LABS: Alkaline Phosphatase 255 U/L (45-117); Total Protein 7.6 g/dL (6.4-8.2)
--- NOTE | 2018-03-26 12:20 | ED ---
HPI General Chief Complaint: Respiratory Symptoms Stated Complaint: Resp Time Seen by Provider: 03/26/18 11:02 Source: patient, family and EMS Mode of arrival: EMS Limitations: no limitations History of Present Illness Patient is a 78-year-old male, history significant for hypertension, hyper lipidemia, hypothyroidism, on oxygen at night while sleeping only, who presents with complaint of increased oxygen requirement. He states that this morning his O2 sat was reading in the 70s despite him being awake. He had some shortness of breath and has had a cough. This improved after being placed on oxygen which he never wears during the day. He denies any fever and is unsure about chills. No leg swelling or immobilization. He was admitted to a hospital in December for pneumonia. MD Complaint: Reports cough Severity: mild Consistency/Duration: constant Relieving factors: nothing Exacerbating factors: nothing Associated symptoms: Reports cough Treatment prior to arrival: Reports oxygen Related Data Previous Rx's Medication Instructions Recorded alprazolam 0.5 mg PO BID PRN #60 tab 11/15/17 ipratropium-albuterol 1 amp NEB Q6HR WHILE AWAKE NEB PRN 11/15/17 ml polyethylene glycol 3350 17 gm PO DAILY ea 11/15/17 tamsulosin 0.4 mg PO DAILY cap 11/15/17 amlodipine 5 mg PO DAILY #0 tab 11/29/17 carvedilol 6.25 mg PO BID #0 tab 11/29/17 duloxetine 30 mg PO DAILY #0 cap 11/29/17 epoetin roni [Procrit] 40,000 unit SUB-Q 2XWEEK #0 ml 11/29/17 furosemide 20 mg PO DAILY #0 tab 11/29/17 gabapentin 300 mg PO HS #0 cap 11/29/17 levothyroxine 137 mcg PO DAILY #0 cap 11/29/17 mirabegron [Myrbetriq] 25 mg PO HS #0 tab 11/29/17 mirtazapine 30 mg PO HS #0 tab 11/29/17 omeprazole 20 mg PO DAILY #0 11/29/17 potassium chloride 10 meq PO DAILY #0 tab 11/29/17 rosuvastatin 20 mg PO HS #0 tab 11/29/17 Allergies Allergy/AdvReac Type Severity Reaction Status Date / Time hydrocodone Allergy Severe Anaphylaxis Verified 03/26/18 10:45 adhesive Allergy Unknown Anaphylaxis Verified 03/26/18 10:45 Review of Systems ROS: all other systems reviewed are negative [facility] Medical History Medical History GERD (gastroesophageal reflux disease) (Acute) Hyperlipidemia (Acute) Hypertension (Acute) Hypothyroid (Acute) Prostate cancer (Resolved) Surgical History Surgical History Hx of joint replacement (Acute) History of thyroidectomy (Resolved) Social History Social History Substance History: No History of Abuse Second Hand Smoke Exposure: No Smoking Status: Never smoker How Often Do You Have a Drink Containing Alcohol: Monthly or less Recent Travel in [facility] within the Last 8 Weeks: No Recent Out of Country Travel within the Last 8 Weeks: No Immunization History Tetanus Immunization: <5 Years Exam Narrative Exam Narrative: GENERAL: Chronically ill-appearing male in no acute distress, on oxygen. SKIN: Focused skin assessment warm/dry. HEAD: Atraumatic. Normocephalic. EYES: Pupils equal and round. No scleral icterus. No injection or drainage. ENT: No nasal bleeding or discharge. Mucous membranes pink and moist. NECK: Trachea midline. No JVD. CARDIOVASCULAR: Regular rate and rhythm. No murmur appreciated. Intact and equal peripheral pulses. RESPIRATORY: No accessory muscle use. Breath sounds equal bilaterally. Decreased breath sounds in the bases. GASTROINTESTINAL: Abdomen soft, non-tender, nondistended. Hepatic and splenic margins not palpable. MUSCULOSKELETAL: No obvious deformities. No clubbing. No cyanosis. No edema. NEUROLOGICAL: Awake and alert. No obvious cranial nerve deficits. Motor grossly within normal limits. Normal speech. PSYCHIATRIC: Appropriate mood and affect; insight and judgment normal. Course Initial Documented Vital Signs Pulse Rate 68 03/26/18 10:46 Respiratory Rate 17 03/26/18 10:46 Blood Pressure 184/84 H 03/26/18 10:46 Pulse Oximetry 100 03/26/18 10:46 Last Documented Vital Signs Temperature 97.9 F 03/26/18 10:52 Pulse Rate 68 03/26/18 10:46 Respiratory Rate 17 03/26/18 10:46 Blood Pressure 184/84 H 03/26/18 10:46 Pulse Oximetry 95 03/26/18 12:45 Medical Decision Making MDM Narrative Medical decision making narrative: Patient is a 78-year-old male who presents with complaint of worsening oxygen requirement. He is dynamically stable while in the emergency department and has been doing well on nasal cannula. Chest x- ray does show bibasilar pneumonia. As the patient has been admitted in the last several months this does put him at risk for hospital-acquired pneumonia. Blood cultures have been drawn and he has been given vancomycin, Zosyn, azithromycin. Labs showed CKD, but were otherwise unremarkable. I spoke with Dr Silver, his PCP, whom agreed to admission. Medical Screen Exam Complete: Yes Emergency Medical Condition: Yes Differential Diagnosis Differential Diagnosis: Differential diagnosis includes but is not limited to COPD exacerbation, CHF, pneumonia, ACS. Medical Records Medical records reviewed: Yes I reviewed the patient's medical records. Lab Data Result diagrams: 03/26/18 10:55 03/26/18 10:55 Lab Results 03/26/18 03/26/18 03/26/18 Range/Units 10:55 10:55 10:55 WBC 6.6 (4.0-11.0) th/mm3 RBC 2.96 L (4.50-5.90) mil/mm3 Hgb 9.1 L (13.0-17.0) gm/dL Hct 28.5 L (39.0-51.0) % MCV 96.2 (80.0-100.0) fL MCH 30.8 (27.0-34.0) pg MCHC 32.0 (32.0-36.0) % RDW 20.7 H (11.6-17.2) % Plt Count 112 L (150-450) th/mm3 MPV 7.5 (7.0-11.0) fL Neut % (Auto) 85.2 H (16.0-70.0) % Lymph % (Auto) 8.7 L (9.0-44.0) % Nolan % (Auto) 5.6 (0.0-8.0) % Eos % (Auto) 0.1 (0.0-4.0) % Baso % (Auto) 0.4 (0.0-2.0) % Neut # (Auto) 5.6 (1.8-7.7) th/mm3 Lymph # (Auto) 0.6 L (1.0-4.8) th/mm3 Nolan # (Auto) 0.4 (0.0-0.9) th/mm3 Eos # (Auto) 0.0 (0.0-0.4) th/mm3 Baso # (Auto) 0.0 (0.0-0.2) th/mm3 WBC Differential . Differential Comment Auto diff final Sodium 144 (136-145) meq/L Potassium 4.3 (3.5-5.1) meq/L Chloride 110 H (98-107) meq/L Carbon Dioxide 29.3 (21.0-32.0) meq/L Anion Gap 5 (5-15) meq/L BUN 51 H (7-18) mg/dL Creatinine 2.55 H (0.60-1.30) mg/dL Estimated GFR 25 L (>89) mL/min Random Glucose 125 H (74-106) mg/dL Calcium 8.0 L (8.5-10.1) mg/dL Total Bilirubin 0.5 (0.2-1.0) mg/dL AST 17 (15-37) U/L ALT 22 (12-78) U/L Alkaline Phosphatase 255 H (45-117) U/L Troponin I Less than 0.02 L (0.02-0.05) ng/mL B-Natriuretic Peptide 143 H (0-100) pg/mL Total Protein 7.6 (6.4-8.2) g/dL Albumin 2.8 L (3.4-5.0) g/dL Imaging Data Attestation: I personally reviewed and interpreted this imaging study as follows : My impression: Bibasilar infiltrates. Radiologist's impression: Chest X-Ray 03/26/18 11:14 CONCLUSION: 1. There are bilateral pulmonary nodules 1.7 cm on the right 1 cm on the left these appear almost calcific density but are new compared to previous dated 11/11. CT imaging of the thorax is warranted for further assessment. 2. Bibasilar areas of infiltrate suggesting a pneumonia. ECG Data EKG Prior to Arrival: No Attestation: I personally reviewed and interpreted this ECG as follows: (Sinus rhythm at a rate of 68 bpm. There is an unclear baseline which makes interpretation difficult but no obvious ST or T wave changes. There is an incomplete right bundle branch block.) Discharge Plan Discharge Disposition Patient Disposition: 30 Still Patient Discharge Condition Condition: Stable Discharge Details Diagnosis: Pneumonia Physicians Team ED Provider: Manda Abarca Primary Care Provider: Mitch Silver Attending Provider: Mitch Silver Other Providers: Mariam Hernandez Discharge Interventions Interventions: Vital Signs Last Done: 03/26/18 10:52 Status ED Status: Admitted Patient
[2018-03-26] MEDS ORDERED: Acetaminophen 325 MG Tablet PO PRN ×2 (13:00→13:03)
[2018-03-26] MEDS ORDERED: Bisacodyl 10 MG Supp RECTAL PRN ×2 (13:00→13:03)
--- NOTE | 2018-03-26 14:15 | CT ---
EXAM DATE: 03/26/2018 1:52 PM EST AGE/SEX: 78 years / Male INDICATIONS: Cough and epistaxis today. CLINICAL DATA: This is the patient's initial encounter. Patient reports that signs and symptoms have been present for 1 day and indicates a pain score of 0/10. MEDICAL/SURGICAL HISTORY: Gastroesophageal reflux disease. Carcinoma, prostatic. Gastroesophageal reflux disease. None. RADIATION DOSE: 18.12 CTDI (mGy) COMPARISON: [facility] – [place], [place], CHEST 2V PA&LAT, 03/26/2018. . TECHNIQUE: Multiple contiguous axial images were obtained through the chest without contrast. Image s were obtained in suspended respiration using multiple row detector helical technique. Using [place] exposure control and adjustment of the mA and/or kV according to patient size, radiation dose was kept as low as reasonably achievable to obtain optimal diagnostic quality images. DICOM format imag e data is available electronically for review and comparison. FINDINGS: Imaging through the pulmonary parenchyma demonstrates areas of basilar atelectasis/consolidation. The nodular appearing areas seen on chest x-ray correspond to some fluid within the fissure on the right and a dilated pulmonary artery on the left. No suspicious lesions are seen. The heart is enlarged. There is advanced atherosclerotic calcification of the coronary arteries. No p ericardial effusion is identified. No hilar or mediastinal adenopathy is present. No significant axil mansi adenopathy is seen. The limited portions of upper abdomen visualized are unremarkable. There are degenerative changes in the thoracic spine. CONCLUSION: 1. Cardiomegaly. 2. Consolidative changes in the lung bases. 3. The nodules identified appear to represent a combination of fluid within the fissure on the right and a dilated pulmonary artery on the left. Electronically signed by: Jose J Yu MD 03/26/2018 2:14 PM EST
[2018-03-26] MEDS: amLODIPine 5 MG Tablet PO SCH (14:32)
[2018-03-26] MEDS: Carvedilol 6.25 MG Tablet PO SCH ×2 (14:33→20:20)
[2018-03-26] MEDS: Enoxaparin Inj 30 MG/0.3 ML Syringe SQ SCH (16:31)
--- NOTE | 2018-03-26 17:47 | P.CONID ---
History of Present Illness Service: ID Consult date: 03/26/18 Requesting Physician: Mitch Silver Reason for Consult: pneumonia Primary Care Provider: Mitch Silver MD History of Present Illness: 78 yo male with multiple med problems including COPD, home O2 (at night ) presents with 2 days h/o SOB, incleased O2 requirement s and productive cough with dark sputum, with blood streaks no sick exposures lives at home with 24/7 in home caregivers Pt ambuilates in wheel chair On presentaion afebrile, normal WBC CXR abnormal, with infiltrates, nodules CT done confirmed infiltrates, no nodules started on abx Pt is a poor historian, history obtained from caregiver pt had pneumonia shot, and he had flu shot he was started started on CFTX, vanco, azithro In October hospitalised for pneumonia Review of Systems All other systems reviewed negative except as stated in HPI PMFSH - History History Provided By: Patient - Medical History Medical History: Medical History (Last Reviewed 03/26/18 @ 17:42 by Mariam Hernandez MD) GERD (gastroesophageal reflux disease) Hyperlipidemia Hypertension Hypothyroid Prostate cancer (Resolved) - Surgical History Surgical History: Surgical History (Last Reviewed 03/26/18 @ 17:42 by Mariam Hernandez MD) Hx of joint replacement History of thyroidectomy - Family History Family History: Family History (Last Updated 03/26/18 @ 17:42 by Mariam Hernandez MD) Other Family history non-contributory - Social History I have reviewed the patient's Social History: Yes - Tobacco History Second Hand Smoke Exposure: No Smoking Status: Never smoker - Alcohol History How Often Do You Have a Drink Containing Alcohol: Monthly or less - Substance Use History Substance History: No History of Abuse - Travel History Recent Travel in the [place] Within the Last 8 Weeks: No Recent Travel Out of the Country Within the Last 8 Weeks: No - Immunization History Tetanus Immunization: <5 Years Medications and Allergies Active Medications: Active Medications Acetaminophen (Tylenol) 650 mg PO Q4H PRN PRN Reason: Temp > 100.4 Al Hydroxide/Mg Hydroxide (Milk Of Magnesia Liq) 30 ml PO Q12H PRN PRN Reason: Mild Constipation Albuterol (Duoneb Neb (Yovanny)) 1 ampul NEB Q6HR WHILE AWAKE NEB YOVANNY Last Admin: 03/26/18 14:45 Dose: 1 ampul Amlodipine Besylate (Norvasc) 2.5 mg PO DAILY [facility] Last Admin: 03/26/18 14:32 Dose: 2.5 mg Bisacodyl (Dulcolax Supp) 10 mg RECTAL DAILY PRN PRN Reason: SEVERE CONSITIPATION Carvedilol (Coreg) 6.25 mg PO BID [facility] Last Admin: 03/26/18 14:33 Dose: 6.25 mg Duloxetine HCl (Cymbalta) 30 mg PO DAILY [facility] Enoxaparin Sodium (Lovenox Inj) 30 mg SQ Q24H [facility] Last Admin: 03/26/18 16:31 Dose: 30 mg Furosemide (Lasix) 20 mg PO DAILY [facility] Gabapentin (Neurontin) 300 mg PO HS [facility] Azithromycin 500 mg/ Sodium (Chloride) 250 mls @ 250 mls/hr IV.SIG Q24H [facility] Ceftriaxone Sodium 2,000 mg/ (Sodium Chloride) 100 mls @ 200 mls/hr IV.SIG Q24H [facility] Lactulose (Lactulose Liq) 30 ml PO DAILY PRN PRN Reason: SEVERE CONSITIPATION Levothyroxine Sodium (Synthroid) 150 mcg PO DAILY@0600 [facility] Mirtazapine (Remeron Soltab Odt) 30 mg PO HS [facility] Ondansetron HCl (Zofran Inj) 4 mg IV.PUSH Q6H PRN PRN Reason: NAUSEA OR VOMITING Pantoprazole Sodium (Protonix) 40 mg PO HS [facility] Polyethylene Glycol (Miralax) 17 gm PO DAILY [facility] Potassium Chloride (Klor-Con 10) 10 meq PO DAILY [facility] Senna/Docusate Sodium (Aurelia-Colace) 1 tab PO BID [facility] Sennosides (Senokot) 17.2 mg PO Q12H PRN PRN Reason: Moderate Constipation Sodium Chloride (Ns Flush) 2 ml IV.FLUSH PRN PRN PRN Reason: FLUSH AFTER USING IV ACCESS Tamsulosin HCl (Flomax) 0.4 mg PO HS [facility] Allergies Allergy/AdvReac Type Severity Reaction Status Date / Time hydrocodone Allergy Severe Anaphylaxis Verified 03/26/18 10:45 adhesive Allergy Unknown Anaphylaxis Verified 03/26/18 10:45 Exam Vital signs: Vital Signs 03/26/18 10:46 03/26/18 10:52 03/26/18 11:00 Temperature 97.9 F Pulse Rate 68 Respiratory Rate 17 Blood Pressure 184/84 H Pulse Oximetry 100 91 L 03/26/18 12:45 03/26/18 14:49 03/26/18 15:25 Temperature Pulse Rate 60 62 Respiratory Rate 18 22 Blood Pressure 153/69 H Pulse Oximetry 95 97 Intake & Output 03/25/18 03/26/18 03/26/18 18:59 06:59 18:59 Intake Total 600 / 600 Balance 600 / 600 Weight 99.79 kg Intake: IV 600 / 600 Azithromycin Inj 500 MG In NS 250 / 250 Inj 250 ML @ 250 mls/hr IV.SIG ONCE ONE Rx#:[id number] Vancomycin Inj 1,000 MG In NS 250 / 250 Inj 250 ML @ 250 mls/hr IV.SIG ONCE ONE Rx#:[id number] Rocephin Inj 1,000 MG In NS Inj 100 / 100 100 ML @ 200 mls/hr IV.SIG ONCE ONE Rx#:[id number] - Constitutional no acute distress, obese, chronically ill appearing - Routine HEENT Exam Head: Present: normocephalic, atraumatic Eye: Present: EOMI, PERRL ENT: Present: mucous membranes moist, dentition normal - Routine Neck Exam Present: supple, full ROM. Absent: JVD - Routine Respiratory Exam Present: decreased breath sounds, CTA bilaterally - Routine Cardiovascular Exam Present: RRR, S1, S2. Absent: murmur, gallop, rubs - Routine Abdominal Exam Present: soft, normoactive bowel sounds. Absent: tenderness, distended, organomegaly, mass - Routine Extremities Exam Present: pulses intact, normal capillary refill. Absent: cyanosis, clubbing, edema - Routine Skin Exam Present: intact, dry. Absent: rash - Routine Neurological Exam Present: alert, oriented X3, CN II-XII intact. Absent: sensory deficit, motor deficit - Routine Psychiatric Exam Present: normal affect, cooperative Results - Labs CBC & Chem 7: 03/26/18 10:55 03/26/18 10:55 Labs: Laboratory Results - last 24 hr 03/26/18 03/26/18 03/26/18 10:55 10:55 10:55 WBC 6.6 RBC 2.96 L Hgb 9.1 L Hct 28.5 L MCV 96.2 MCH 30.8 MCHC 32.0 RDW 20.7 H Plt Count 112 L MPV 7.5 Neut % (Auto) 85.2 H Lymph % (Auto) 8.7 L [place] % (Auto) 5.6 Eos % (Auto) 0.1 Baso % (Auto) 0.4 Neut # (Auto) 5.6 Lymph # (Auto) 0.6 L [place] # (Auto) 0.4 Eos # (Auto) 0.0 Baso # (Auto) 0.0 WBC Differential . Differential Comment Auto diff final Sodium 144 Potassium 4.3 Chloride 110 H Carbon Dioxide 29.3 Anion Gap 5 BUN 51 H Creatinine 2.55 H Estimated GFR 25 L Random Glucose 125 H Calcium 8.0 L Total Bilirubin 0.5 AST 17 ALT 22 Alkaline Phosphatase 255 H Troponin I Less than 0.02 L B-Natriuretic Peptide 143 H Total Protein 7.6 Albumin 2.8 L - Imaging Impressions Chest CT 03/26/18 00:00 CONCLUSION: 1. Cardiomegaly. 2. Consolidative changes in the lung bases. 3. The nodules identified appear to represent a combination of fluid within the fissure on the right and a dilated pulmonary artery on the left. Chest X-Ray 03/26/18 11:14 CONCLUSION: 1. There are bilateral pulmonary nodules 1.7 cm on the right 1 cm on the left these appear almost calcific density but are new compared to previous dated 11/11. CT imaging of the thorax is warranted for further assessment. 2. Bibasilar areas of infiltrate suggesting a pneumonia. Assessment and Plan - Plan PNA, b/l infiltrates COPD exacerbation ARF on CKD cont azithro, cnage vanco to zyvox will switch CFTX to cefepime sputum clx Leg/pneumococcus/flu dw RN dw caregiver
[2018-03-26] MEDS: Senna/Docusate Sodium 8.6/50 MG Tablet PO SCH (20:20)
[2018-03-26] MEDS: Gabapentin 300 MG Capsule PO SCH (20:20)
[2018-03-26] MEDS: MIRTAZAPINE 30 MG PO SCH (21:27)
[2018-03-27] MEDS: Levothyroxine 150 MCG Tablet PO SCH (05:21)
--- NOTE | 2018-03-27 06:34 | ECG ---
Date Performed: 03/26/2018 Time Performed: 10:55:10 PTAGE: 78 years EKG: Sinus rhythm WITH FIRST DEGREE AV BLOCK BORDERLINE LEFT AXIS DEVIATION INCOMPLETE RIGHT BUNDLE BRANCH BLOCK ABNOR MAL ECG PREVIOUS TRACING : 01/29/2017 19.44 Since the previous tracing, no significant change noted DOCTOR: Norman Wilson Interpretating Date/Time 03/27/2018 06:33:44
[2018-03-27 07:11] LABS: Baso % (Auto) 0.5 % (0.0-2.0); Eos % (Auto) 0.1 % (0.0-4.0); Hematocrit 24.7 % (39.0-51.0); Hemoglobin 7.9 gm/dL (13.0-17.0); Lymph # (Auto) 0.4 th/mm3 (1.0-4.8); Lymph % (Auto) 6.3 % (9.0-44.0); Mean Corpuscular Volume 96.8 fL (80.0-100.0); Mono # (Auto) 0.5 th/mm3 (0.0-0.9); Mono % (Auto) 8.3 % (0.0-8.0); Neut # (Auto) 4.7 th/mm3 (1.8-7.7); Neut % (Auto) 84.8 % (16.0-70.0); Platelet Count 96 th/mm3 (150-450); Red Blood Count 2.56 mil/mm3 (4.50-5.90); Red Cell Distribution Width 20.8 % (11.6-17.2); White Blood Count 5.6 th/mm3 (4.0-11.0)
[2018-03-27 07:46] LABS: Carbon Dioxide 26.8 meq/L (21.0-32.0); Potassium 4.1 meq/L (3.5-5.1)
--- NOTE | 2018-03-27 08:45 | P.PN ---
Subjective Interval history: The patient had an uneventful night. He still coughing and producing some clear to dillard sputum. Sputum culture is pending. Remains on oxygen at 4 L/min per nasal cannula with adequate oxygen saturation. Denies any significant pain. Appetite is good. Denies any chest pain, palpitation, abdominal pain, nausea or vomiting. Blood pressure is under better control this morning. Has not had a bowel movement since admission. Active Medications Generic Name Dose Route Start Last Admin Trade Name Freq PRN Reason Stop Dose Admin Acetaminophen 650 mg 03/26/18 13:03 Tylenol PO Q4H PRN Temp > 100.4 Al Hydroxide/Mg Hydroxide 30 ml 03/26/18 13:03 Milk Of Magnesia Liq PO Q12H PRN Mild Constipation Albuterol 1 ampul 03/26/18 14:00 03/27/18 08:00 Duoneb Neb (Yovanny) NEB 1 ampul Q6HR WHILE AWAKE NEB YOVANNY Administration Amlodipine Besylate 2.5 mg 03/26/18 13:45 03/26/18 14:32 Norvasc PO 2.5 mg DAILY YOVANNY Administration Bisacodyl 10 mg 03/26/18 13:03 Dulcolax Supp RECTAL DAILY PRN SEVERE CONSITIPATION Carvedilol 6.25 mg 03/26/18 13:45 03/26/18 20:20 Coreg PO 6.25 mg BID YOVANNY Administration Duloxetine HCl 30 mg 03/27/18 09:00 Cymbalta PO DAILY YOVANNY Enoxaparin Sodium 30 mg 03/26/18 15:00 03/26/18 16:31 Lovenox Inj SQ 30 mg Q24H YOVANNY Administration Furosemide 20 mg 03/27/18 09:00 Lasix PO DAILY YOVANNY Gabapentin 300 mg 03/26/18 21:00 03/26/18 20:20 Neurontin PO 300 mg HS YOVANNY Administration Azithromycin 500 mg/ Sodium 250 mls @ 250 mls/hr 03/27/18 13:00 Chloride IV.SIG Q24H YOVANNY Cefepime HCl 2,000 mg/ Sodium 100 mls @ 200 mls/hr 03/26/18 20:00 03/26/18 21 :00 Chloride IV.SIG Infused Q24H YOVANNY Infusion Linezolid 300 mls @ 300 mls/hr 03/26/18 20:00 03/26/18 22:10 Zyvox 600 Mg Premix IV.SIG Infused Q12H YOVANNY Infusion Sodium Chloride 250 mls @ 15 mls/hr 03/27/18 09:00 Ns Inj IV.SIG 03/28/18 01:39 ONCE YOVANNY Lactulose 30 ml 03/26/18 13:00 Lactulose Liq PO DAILY PRN SEVERE CONSITIPATION Levothyroxine Sodium 150 mcg 03/27/18 06:00 03/27/18 05:21 Synthroid PO 150 mcg DAILY@0600 YOVANNY Administration Mirtazapine 30 mg 03/26/18 21:00 03/26/18 21:27 Remeron Soltab Odt PO 30 mg HS YOVANNY Administration Ondansetron HCl 4 mg 03/26/18 13:03 Zofran Inj IV.PUSH Q6H PRN NAUSEA OR VOMITING Pantoprazole Sodium 40 mg 03/26/18 21:00 03/26/18 20:20 Protonix PO 40 mg HS YOVANNY Administration Polyethylene Glycol 17 gm 03/27/18 09:00 Miralax PO DAILY YOVANNY Potassium Chloride 10 meq 03/27/18 09:00 Klor-Con 10 PO DAILY YOVANNY Senna/Docusate Sodium 1 tab 03/26/18 21:00 03/26/18 20:20 Aurelia-Colace PO 1 tab BID YOVANNY Administration Sennosides 17.2 mg 03/26/18 13:03 Senokot PO Q12H PRN Moderate Constipation Sodium Chloride 2 ml 03/26/18 11:14 Ns Flush IV.FLUSH PRN PRN FLUSH AFTER USING IV ACCESS Tamsulosin HCl 0.4 mg 03/26/18 21:00 03/26/18 20:20 Flomax PO 0.4 mg HS YOVANNY Administration Physical Exam Vital signs: Vital Signs 03/26/18 10:46 03/26/18 10:52 03/26/18 11:00 Temperature 97.9 F Pulse Rate 68 Respiratory Rate 17 Blood Pressure 184/84 H Pulse Oximetry 100 91 L 03/26/18 12:45 03/26/18 14:49 03/26/18 15:25 Temperature Pulse Rate 60 62 Respiratory Rate 18 22 Blood Pressure 153/69 H Pulse Oximetry 95 97 03/26/18 19:55 03/26/18 20:00 03/26/18 20:15 Temperature 99.1 F Pulse Rate 72 68 72 Respiratory Rate 20 22 Blood Pressure 185/86 H Pulse Oximetry 96 95 03/26/18 23:32 03/27/18 03:40 03/27/18 08:00 Temperature 98.6 F 97.9 F 98.0 F Pulse Rate 74 75 72 Respiratory Rate 20 20 20 Blood Pressure 144/89 H 151/67 H 135/65 Pulse Oximetry 95 96 94 L 03/27/18 08:02 Temperature Pulse Rate 72 Respiratory Rate 18 Blood Pressure Pulse Oximetry 96 Intake & Output 03/26/18 03/27/18 03/27/18 18:59 06:59 18:59 Intake Total 600 / 600 400 / 400 300 / 300 Balance 600 / 600 400 / 400 300 / 300 Weight 258 lb 6.108 oz 260 lb 2.327 oz Intake: IV 600 / 600 400 / 400 Azithromycin Inj 500 MG In NS 250 / 250 Inj 250 ML @ 250 mls/hr IV.SIG ONCE ONE Rx#:[id number] Maxipime Inj 2,000 MG In NS Inj 100 / 100 100 ML @ 200 mls/hr IV.SIG Q24H YOAVNNY Rx#:[id number] Zyvox 600 mg Premix 300 ML @ 300 / 300 300 mls/hr IV.SIG Q12H YOVANNY Rx#: [id number] Vancomycin Inj 1,000 MG In NS 250 / 250 Inj 250 ML @ 250 mls/hr IV.SIG ONCE ONE Rx#:[id number] Rocephin Inj 1,000 MG In NS Inj 100 / 100 100 ML @ 200 mls/hr IV.SIG ONCE ONE Rx#:[id number] Oral 300 / 300 Other: # Incontinent Voids 1 Weight On Admission 258 lb 6.108 oz - Constitutional Comments: Morbidly obese elderly white male lying in bed with oxygen in place in no acute distress - Routine Neck Exam Present: supple - Routine Respiratory Exam Comments: Diminished breath sounds in the bases otherwise clear to auscultation - Routine Cardiovascular Exam Present: RRR - Routine Abdominal Exam Comments: Morbidly obese, soft, nontender with bowel sounds present - Routine Extremities Exam Comments: No edema or calf tenderness. No Homans sign. Results - Labs CBC & Chem 7: 03/27/18 03:40 03/27/18 03:40 Laboratory Results - last 24 hr 03/26/18 03/26/18 03/26/18 10:55 10:55 10:55 WBC 6.6 RBC 2.96 L Hgb 9.1 L Hct 28.5 L MCV 96.2 MCH 30.8 MCHC 32.0 RDW 20.7 H Plt Count 112 L MPV 7.5 Prelim Diff (Auto) Neut % (Auto) 85.2 H Lymph % (Auto) 8.7 L [place] % (Auto) 5.6 Eos % (Auto) 0.1 Baso % (Auto) 0.4 Neut # (Auto) 5.6 Lymph # (Auto) 0.6 L [place] # (Auto) 0.4 Eos # (Auto) 0.0 Baso # (Auto) 0.0 WBC Differential . Differential Comment Auto diff final Sodium 144 Potassium 4.3 Chloride 110 H Carbon Dioxide 29.3 Anion Gap 5 BUN 51 H Creatinine 2.55 H Estimated GFR 25 L Random Glucose 125 H Calcium 8.0 L Total Bilirubin 0.5 AST 17 ALT 22 Alkaline Phosphatase 255 H Troponin I Less than 0.02 L B-Natriuretic Peptide 143 H Total Protein 7.6 Albumin 2.8 L 03/27/18 03/27/18 03:40 03:40 WBC 5.6 RBC 2.56 L Hgb 7.9 L Hct 24.7 L MCV 96.8 MCH 31.0 MCHC 32.0 RDW 20.8 H Plt Count 96 L MPV 8.0 Prelim Diff (Auto) Slide review pending Neut % (Auto) 84.8 H Lymph % (Auto) 6.3 L [place] % (Auto) 8.3 H Eos % (Auto) 0.1 Baso % (Auto) 0.5 Neut # (Auto) 4.7 Lymph # (Auto) 0.4 L [place] # (Auto) 0.5 Eos # (Auto) 0.0 Baso # (Auto) 0.0 WBC Differential Differential Comment . Sodium 146 H Potassium 4.1 Chloride 112 H Carbon Dioxide 26.8 Anion Gap 7 BUN 47 H Creatinine 2.37 H Estimated GFR 27 L Random Glucose 92 Calcium 8.0 L Total Bilirubin AST ALT Alkaline Phosphatase Troponin I B-Natriuretic Peptide Total Protein Albumin - Imaging Impressions Chest CT 03/26/18 00:00 CONCLUSION: 1. Cardiomegaly. 2. Consolidative changes in the lung bases. 3. The nodules identified appear to represent a combination of fluid within the fissure on the right and a dilated pulmonary artery on the left. Chest X-Ray 03/26/18 11:14 CONCLUSION: 1. There are bilateral pulmonary nodules 1.7 cm on the right 1 cm on the left these appear almost calcific density but are new compared to previous dated 11/11. CT imaging of the thorax is warranted for further assessment. 2. Bibasilar areas of infiltrate suggesting a pneumonia. Assessment and Plan - Assessment (1) Pneumonia Code(s): J18.9 - Pneumonia, unspecified organism Status: Acute Plan: CT of the chest revealed bibasilar consolidation. We will begin incentive spirometry. Appreciate infectious disease consultation. Continue with IV antibiotics per infectious disease. Continue with nebulizer treatments. (2) Chronic obstructive pulmonary disease Code(s): J44.9 - Chronic obstructive pulmonary disease, unspecified Status: Chronic Plan: Will resume Breo ellipta. Patient was receiving prednisone prior to admission for recent upper respiratory infection. Will resume prednisone. Wean steroids as tolerated. (3) Hypertension Code(s): I10 - Essential (primary) hypertension Status: Chronic Plan: Blood pressure under better control this morning. Continue with usual medications. (4) Hypothyroidism Code(s): E03.9 - Hypothyroidism, unspecified Status: Chronic Plan: The patient had a TSH done approximately 6 weeks ago and it was therapeutic. Continue with current dosage of levothyroxine. (5) Chronic kidney disease, stage III (moderate) Code(s): N18.3 - Chronic kidney disease, stage 3 (moderate) Status: Chronic Plan: Renal function is at baseline at this time. Will follow. (6) Anemia due to chronic kidney disease Code(s): N18.9 - Chronic kidney disease, unspecified; D63.1 - Anemia in chronic kidney disease Status: Chronic Plan: H&H have decreased likely due to delusional effect. In this patient with pulmonary disease, it would be best to hemoglobin were >10.0. Will proceed with transfusion of 2 units of packed red blood cells today. Follow H&H. (7) GERD (gastroesophageal reflux disease) Code(s): K21.9 - Gastro-esophageal reflux disease without esophagitis Status: Chronic (8) Adjustment disorder with mixed anxiety and depressed mood Code(s): F43.23 - Adjustment disorder with mixed anxiety and depressed mood Status: Chronic Plan: Continue with current medication. Mood is good at this time. (1) Pneumonia Qualifiers: Pneumonia type: due to unspecified organism Laterality: bilateral Lung location: unspecified part of lung Qualified Code(s): J18.9 - Pneumonia, unspecified organism (2) Chronic obstructive pulmonary disease Qualifiers: COPD type: unspecified COPD Qualified Code(s): J44.9 - Chronic obstructive pulmonary disease, unspecified (3) Hypertension Qualifiers: Hypertension type: essential hypertension Qualified Code(s): I10 - Essential (primary) hypertension (4) Hypothyroidism Qualifiers: Hypothyroidism type: postoperative Qualified Code(s): E89.0 - Postprocedural hypothyroidism (6) Anemia due to chronic kidney disease Qualifiers: Chronic kidney disease stage: stage 3 (moderate) Qualified Code(s): N18.3 - Chronic kidney disease, stage 3 (moderate); D63.1 - Anemia in chronic kidney disease
[2018-03-27 08:55] LABS: Lymphocytes 8 % (9-44); Monocytes 3 % (0-8); Tallied Nucleated RBC 1 (0-0)
[2018-03-27 08:56] LABS: Basophilic Stippling Moderate; Stomatocytes 3+
[2018-03-27] MEDS ORDERED: Sodium Chlor 0.9% Inj 250 ML IV.SIG SCH (09:00)
--- NOTE | 2018-03-27 09:33 | MH ---
cc: Mitch Silver MD DATE OF ADMISSION: 03/26/2018 ADMITTING DIAGNOSES: Pneumonia, hypoxemia, shortness of breath. HISTORY OF PRESENT ILLNESS: This 78-year-old white male well-known to the undersigned physician, has a history of COPD and has had pneumonia on 3 separate occasions this year. The patient contacted the undersigned physician approximately 10 days prior to admission, reporting that he had an upper respiratory infection. At that time, the patient was placed on oral antibiotics and steroids. He was using his nebulizer treatments 3 times a day and continued with his usual inhalers. The patient, however, noticed increasing shortness of breath. On the day prior to admission, the patient contacted the undersigned physician and reported that his oxygen saturations were in the 70s when he took his oxygen off. This is significantly lower than it has been in the past. He was feeling more dyspnea on exertion. He had no fever, chills, night sweats, nausea, or vomiting. The patient was instructed to report to the emergency department; however, he did not do so. The patient contacted the undersigned physician early on the day of admission stating that his symptoms were the same. At that time, the patient was again instructed to report to the emergency department for further evaluation; and the patient did so. The patient denies any chest pain, palpitations. His bowels have been moving regularly. He has had no lightheadedness or dizziness. He is limited in his ambulation due to multiple medical problems. He has been compliant with all his medications. He remains incontinent of urine, which is a chronic issue. He has had no diarrhea or constipation. He denies any dysuria or hematuria. He has had no rashes. He denies any GERD symptoms with current medication. PAST MEDICAL HISTORY: Significant for history of a lower gastrointestinal hemorrhage in 2013, which required transfusions. He has a history of osteoarthritis, prostate cancer status post radium seed implants, GERD, hypertension, post-surgical hypothyroidism, chronic kidney disease stage III, insomnia, vitamin D deficiency, hyperlipidemia, [place] esophagus, lumbar disk disease with spinal stenosis, and anemia due to chronic kidney disease. He also has adjustment disorder with mixed anxious and depressed features, hyperlipidemia, and COPD. PAST SURGICAL HISTORY: Positive for a thyroidectomy in 2002, left carotid endarterectomy in 1999, and left total knee replacement in 2013. He has a history of left shoulder surgery and he had a lumbar spinal surgery at the [facility] in 2016 for spinal stenosis. CURRENT MEDICATIONS: Include mirtazapine 30 mg at bedtime, gabapentin 300 mg at bedtime, levothyroxine 150 mcg daily, Breo-Ellipta 100/25 mcg per inhalation 1 inhalation daily, ferrous sulfate 325 mg daily, potassium chloride ER 10 mEq 1 tablet daily, alprazolam 0.5 mg 1/2 to 1 tablet twice a day as needed for anxiety, Myrbetriq 50 mg daily, Mucinex 600 mg daily, duloxetine 30 mg 1 capsule daily, rosuvastatin 20 mg 1 tablet daily, omeprazole 20 mg 1 capsule daily, MiraLAX 17 g in 8 ounces of liquid daily, furosemide 20 mg daily, amlodipine 2.5 mg daily, carvedilol 6.25 mg twice daily, potassium,and he receives Procrit 40,000 units subcutaneously once a week when hemoglobin is less than 10. ALLERGIES: HE HAS ALLERGIES TO HYDROCODONE WHICH CAUSES ITCHING AND ADHESIVE TAPE. FAMILY HISTORY: Noncontributory. SOCIAL HISTORY: He is . He lives at home with 24-hour caregivers. He does not actively smoke. He did have a problem with alcohol abuse, but his alcohol intake is limited to no more than 2 ounces per day. REVIEW OF SYSTEMS: Refer to the history of present illness. PHYSICAL EXAMINATION: VITAL SIGNS: Upon arrival to the emergency department, the patient's blood pressure is 184/84 with a heart rate of 68, respirations 17, oxygen saturation was 91% on 4 liters per minute per nasal cannula. GENERAL: This is a morbidly obese, elderly, white male appearing fatigued, but in no acute respiratory distress with oxygen in place. HEENT: Pupils equal, round, reactive to light. Extraocular movements are intact. Sclerae are anicteric. Conjunctivae pink. Mouth and throat reveal moist mucous membranes. No erythema or exudates. NECK: Supple without lymphadenopathy, JVD, or bruits. CARDIOVASCULAR: Regular rate and rhythm without murmurs. LUNGS: Reveal diminished breath sounds bilaterally, especially in the bases. There are no wheezes, no rhonchi, no rales. Examination was difficult as the patient is having difficulty sitting up in bed. ABDOMEN: Morbidly obese, soft, nontender with bowel sounds present. Further palpation not possible due to morbid obesity. GENITOURINARY AND RECTAL: Deferred. LOWER EXTREMITIES: Reveal trace to 1+ edema in the distal lower legs, ankles, and feet. No calf tenderness. No Homans sign. There are 1+ pulses. SKIN: Warm and dry. Good turgor. NEUROLOGIC: The patient is awake and alert, oriented x 3. Speech is intact. Cranial nerves are intact. No lateralizing deficits. PSYCHIATRIC: Mood is good. Affect appropriate. No delusions or hallucinations. DIAGNOSTIC DATA: His comprehensive metabolic profile was significant for BUN of 51, creatinine of 2.55. The calcium was low at 8.0, but albumin is low at 2.8. The troponin was less than 0.02. BNP was 143, which is mildly elevated. The white blood cell count 6.6, hemoglobin 9.1, hematocrit 28.5, platelet count 112,000. The white blood cell count differential revealed 85.2 polys, 8.7 lymphocytes, 5.6 monocytes. The chest x-ray revealed bilateral pulmonary nodules, 1.5 cm on the right, 1 cm and the left, which appear almost calcific density but are new compared to previous date of 11/11/2017. CT scan recommended. A noncontrast CT scan of the chest revealed cardiomegaly, consolidative changes in the lung bases, and nodules identified appear to represent a combination of fluid within the fissure on the right and dilated pulmonary artery on the left. ASSESSMENT AND PLAN: 1. This 78-year-old white male presents with probable pneumonia with hypoxemia superimposed on chronic obstructive pulmonary disease. The patient will be admitted to the medical/surgical bed. I have consulted infectious disease for assistance with antibiotic choices due to his frequency of pneumonia. The patient will be placed on nebulizer treatments, supplemental oxygen, and will provide the IV antibiotics. We will monitor respiratory status closely. 2. Hypertension. Blood pressure will be controlled with his usual medications. Adjust medicine as needed for elevated blood pressure readings. 3. History of gastroesophageal reflux disease. The patient will be placed on pantoprazole 40 mg daily and we will follow for any symptoms. 4. Chronic kidney disease, stage III. The creatinine is mildly higher than baseline. We will monitor renal function closely. 5. Anemia due to chronic kidney disease. The patient's hemoglobin is low, but at this point not low enough to require transfusion. If necessary, provide transfusion or Procrit injection. We will check iron levels. Follow hemoglobin and hematocrit. 6. History of adjustment disorder with mixed anxiety and depressed mood. Continue with current psychiatric medications. Mood is good. 7. Constipation. The patient will continue with MiraLAX on a daily basis. Adjust dosage as needed. I have discussed the plan with the patient and his caregiver, who both expressed understanding and agreement. MD ZIGGY Murphy/yumiko , 08:56 AM , 09:14 AM
[2018-03-27] MEDS: Furosemide 20 MG Tablet PO SCH (09:55)
[2018-03-27] MEDS: Senna/Docusate Sodium 8.6/50 MG Tablet PO SCH ×2 (09:55→20:17)
[2018-03-27] MEDS: amLODIPine 5 MG Tablet PO SCH (09:56)
[2018-03-27] MEDS: Polyethylene Glycol 3350 17 GM Packet PO SCH (09:56)
[2018-03-27] MEDS: Carvedilol 6.25 MG Tablet PO SCH ×2 (09:56→20:17)
[2018-03-27] MEDS: predniSONE 20 MG Tablet PO SCH (10:31)
[2018-03-27 10:36] LABS: % Iron Saturation 12.9 % (20-50)
[2018-03-27] MEDS: Azithromycin Inj 500 MG in Sodium Chlor 0.9% Inj 250 ML IV.SIG SCH (14:05)
[2018-03-27] MEDS: Enoxaparin Inj 30 MG/0.3 ML Syringe SQ SCH (16:00)
--- NOTE | 2018-03-27 17:50 | P.PNID ---
Subjective Remarks: growing GPC in pairs, clusters in 1/4 bottles no fever no leeukocytosis Antibiotics: zyvox cefepime azithro Allergies/Adverse Reactions: Allergies hydrocodone Allergy (Severe, Verified 03/26/18 10:45) Anaphylaxis adhesive Allergy (Unknown, Verified 03/26/18 10:45) Anaphylaxis pt to pacu with redness noted to skin per forest landscape ecology professor pt appears to have allergy to adhesive tape spoke with pt, pt aware md made aware per forest landscape ecology professor, skin intact, per forest landscape ecology professor site to l chest area improving after pads removed Objective Vital Signs 03/26/18 19:55 03/26/18 20:00 03/26/18 20:15 Temperature 99.1 F Pulse Rate 72 68 72 Respiratory Rate 20 22 Blood Pressure 185/86 H Pulse Oximetry 96 95 03/26/18 23:32 03/27/18 03:40 03/27/18 08:00 Temperature 98.6 F 97.9 F 98.0 F Pulse Rate 74 75 72 Respiratory Rate 20 20 20 Blood Pressure 144/89 H 151/67 H 135/65 Pulse Oximetry 95 96 94 L 03/27/18 08:02 03/27/18 12:00 03/27/18 12:01 Temperature 98.9 F Pulse Rate 72 64 77 Respiratory Rate 18 20 18 Blood Pressure 147/67 H Pulse Oximetry 96 96 03/27/18 16:00 03/27/18 16:34 03/27/18 16:55 Temperature 98.3 F 98.4 F 98.1 F Pulse Rate 73 95 H 74 Respiratory Rate 20 20 18 Blood Pressure 159/74 H 171/80 H 165/76 H Pulse Oximetry 95 96 95 Intake & Output 03/26/18 03/27/18 03/27/18 18:59 06:59 18:59 Intake Total 600 / 600 400 / 400 600 / 600 Balance 600 / 600 400 / 400 600 / 600 Weight 117.2 kg 118 kg Intake: IV 600 / 600 400 / 400 300 / 300 Azithromycin Inj 500 MG In NS 250 / 250 Inj 250 ML @ 250 mls/hr IV.SIG ONCE ONE Rx#:[id number] Maxipime Inj 2,000 MG In NS Inj 100 / 100 100 ML @ 200 mls/hr IV.SIG Q24H [facility] Rx#:[id number] Zyvox 600 mg Premix 300 ML @ 300 / 300 300 / 300 300 mls/hr IV.SIG Q12H [facility] Rx#: [id number] Vancomycin Inj 1,000 MG In NS 250 / 250 Inj 250 ML @ 250 mls/hr IV.SIG ONCE ONE Rx#:[id number] Rocephin Inj 1,000 MG In NS Inj 100 / 100 100 ML @ 200 mls/hr IV.SIG ONCE ONE Rx#:[id number] Oral 300 / 300 Intake (Blood Product) Amt 0 / 0 Rbc As-3 Leukoreduced Unit 0 / 0 [id number] Other: # Incontinent Voids 1 Weight On Admission 117.2 kg 03/26/18 11:50 Blood - Peripheral Aerobic Blood Culture - Preliminary gram positive cocci 03/26/18 11:50 Blood - Peripheral Anaerobic Blood Culture - Preliminary No growth in 1 day 03/26/18 12:05 Blood - Peripheral Aerobic Blood Culture - Preliminary No growth in 1 day 03/26/18 12:05 Blood - Peripheral Anaerobic Blood Culture - Preliminary No growth in 1 day Lab - Hematology Results 03/26/18 03/27/18 10:55 03:40 WBC 6.6 5.6 RBC 2.96 L 2.56 L Hgb 9.1 L 7.9 L Hct 28.5 L 24.7 L MCV 96.2 96.8 MCH 30.8 31.0 MCHC 32.0 32.0 RDW 20.7 H 20.8 H Plt Count 112 L 96 L MPV 7.5 8.0 Prelim Diff (Auto) Slide review pending Neut % (Auto) 85.2 H 84.8 H Lymph % (Auto) 8.7 L 6.3 L [place] % (Auto) 5.6 8.3 H Eos % (Auto) 0.1 0.1 Baso % (Auto) 0.4 0.5 Neut # (Auto) 5.6 4.7 Lymph # (Auto) 0.6 L 0.4 L [place] # (Auto) 0.4 0.5 Eos # (Auto) 0.0 0.0 Baso # (Auto) 0.0 0.0 WBC Differential . Manual diff final Seg Neuts % (Manual) 82 H Band Neuts % (Manual) 7 H Lymphocytes % (Manual) 8 L Monocytes % (Manual) 3 Abs Neuts (Manual) 5.0 Nucleated RBCs/100 WBC 1 H Differential Comment Auto diff final . Platelet Estimate Low L Platelet Morphology Enlarged H Basophilic Stippling Moderate H Stomatocytes 3+ H Lab - Chemistry Results 03/26/18 03/26/18 03/27/18 10:55 10:55 03:40 Sodium 144 146 H Potassium 4.3 4.1 Chloride 110 H 112 H Carbon Dioxide 29.3 26.8 Anion Gap 5 7 BUN 51 H 47 H Creatinine 2.55 H 2.37 H Estimated GFR 25 L 27 L Random Glucose 125 H 92 Calcium 8.0 L 8.0 L Iron TIBC % Saturation Ferritin Total Bilirubin 0.5 AST 17 ALT 22 Alkaline Phosphatase 255 H Troponin I Less than 0.02 L B-Natriuretic Peptide 143 H Total Protein 7.6 Albumin 2.8 L 03/27/18 09:47 Sodium Potassium Chloride Carbon Dioxide Anion Gap BUN Creatinine Estimated GFR Random Glucose Calcium Iron 32 L TIBC 248 L % Saturation 12.9 L Ferritin 474 H Total Bilirubin AST ALT Alkaline Phosphatase Troponin I B-Natriuretic Peptide Total Protein Albumin Imaging: ITS Impressions Chest CT 03/26/18 00:00 CONCLUSION: 1. Cardiomegaly. 2. Consolidative changes in the lung bases. 3. The nodules identified appear to represent a combination of fluid within the fissure on the right and a dilated pulmonary artery on the left. Chest X-Ray 03/26/18 11:14 CONCLUSION: 1. There are bilateral pulmonary nodules 1.7 cm on the right 1 cm on the left these appear almost calcific density but are new compared to previous dated 11/11. CT imaging of the thorax is warranted for further assessment. 2. Bibasilar areas of infiltrate suggesting a pneumonia. Physical Exam: GENERAL: NAD. Morbidly obese looks sourav today SKIN: Warm and dry. HEAD: Atraumatic. Normocephalic. EYES: Pupils equal and round. No scleral icterus. No injection or drainage. ENT: No nasal bleeding or discharge. Mucous membranes pink and moist. NECK: Trachea midline. No JVD. CARDIOVASCULAR: Regular rate and rhythm. RESPIRATORY: No accessory muscle use. Clear to auscultation. Breath sounds diminished bilaterally. GASTROINTESTINAL: Abdomen soft, non-tender, nondistended. Hepatic and splenic margins not palpable. MUSCULOSKELETAL: Extremities without clubbing, cyanosis, + some edema. No obvious deformities. NEUROLOGICAL: Awake and alert. Non focal glrosslyNormal speech. PSYCHIATRIC: Appropriate mood and affect; Assessment and Plan - Plan PNA, b/l infiltrates COPD exacerbation ARF on CKD Low grade bacteremia ? significance Presented with respmsm, low grade bacteremia, cont azithro, cont zyvox cont cefepime sputum clx Leg/pneumococcus/flu fu P bl clx dw RN dw caregiver
[2018-03-27] MEDS: Gabapentin 300 MG Capsule PO SCH (20:17)
[2018-03-27] MEDS: MIRTAZAPINE 30 MG PO SCH (20:17)
[2018-03-28] MEDS: Levothyroxine 150 MCG Tablet PO SCH (05:59)
[2018-03-28 07:45] LABS: Eos % (Auto) 0.1 % (0.0-4.0); Hemoglobin 9.6 gm/dL (13.0-17.0); Lymph # (Auto) 0.8 th/mm3 (1.0-4.8); Lymph % (Auto) 18.9 % (9.0-44.0); Mean Corpuscular Hemoglobin 30.6 pg (27.0-34.0); Mean Corpuscular Volume 92.6 fL (80.0-100.0); Mean Platelet Volume 7.9 fL (7.0-11.0); Mono # (Auto) 0.4 th/mm3 (0.0-0.9); Mono % (Auto) 8.2 % (0.0-8.0); Neut # (Auto) 3.1 th/mm3 (1.8-7.7); Neut % (Auto) 71.8 % (16.0-70.0); Platelet Count 91 th/mm3 (150-450); Red Blood Count 3.13 mil/mm3 (4.50-5.90); Red Cell Distribution Width 19.3 % (11.6-17.2); White Blood Count 4.3 th/mm3 (4.0-11.0)
[2018-03-28 08:06] LABS: Alanine Aminotransferase 18 U/L (12-78); Albumin 2.5 g/dL (3.4-5.0); Anion Gap 6 meq/L (5-15); Aspartate Aminotransferase 19 U/L (15-37); Blood Urea Nitrogen 46 mg/dL (7-18); Calcium 7.9 mg/dL (8.5-10.1); Carbon Dioxide 27.9 meq/L (21.0-32.0); Chloride 110 meq/L (98-107); Glomerular Filtration Rate 22 mL/min (>89); Glucose,Random 107 mg/dL (74-106); Potassium 4.1 meq/L (3.5-5.1); Sodium 144 meq/L (136-145)
[2018-03-28 08:08] LABS: Alkaline Phosphatase 210 U/L (45-117); Total Protein 7.1 g/dL (6.4-8.2)
--- NOTE | 2018-03-28 08:42 | P.PN ---
Subjective Interval history: She is status post transfusion of 2 units of packed red blood cells. He states he feels stronger today. Cough has diminished. Denies any fever or chills. Has not yet been out of bed. He has had 2 bowel movements since admission according to his report. Urine output is good. Appetite is good. Remains on oxygen. Blood pressure is borderline. Denies any chest pain or palpitations. Active Medications Generic Name Dose Route Start Last Admin Trade Name Freq PRN Reason Stop Dose Admin Acetaminophen 650 mg 03/26/18 13:03 03/27/18 20:21 Tylenol PO 650 mg Q4H PRN Administration Temp > 100.4 Al Hydroxide/Mg Hydroxide 30 ml 03/26/18 13:03 Milk Of Magnesia Liq PO Q12H PRN Mild Constipation Albuterol 1 ampul 03/26/18 14:00 03/28/18 08:24 Duoneb Neb (Yovanny) NEB 1 ampul Q6HR WHILE AWAKE NEB YOVANNY Administration Amlodipine Besylate 2.5 mg 03/26/18 13:45 03/27/18 09:56 Norvasc PO 2.5 mg DAILY YOVANNY Administration Bisacodyl 10 mg 03/26/18 13:03 Dulcolax Supp RECTAL DAILY PRN SEVERE CONSITIPATION Carvedilol 6.25 mg 03/26/18 13:45 03/27/18 20:17 Coreg PO 6.25 mg BID YOVANNY Administration Docusate Sodium 100 mg 03/28/18 09:00 Colace PO BID YOVANNY Duloxetine HCl 30 mg 03/27/18 09:00 Cymbalta PO DAILY YOVANNY Enoxaparin Sodium 30 mg 03/26/18 15:00 03/27/18 16:00 Lovenox Inj SQ 30 mg Q24H YOVANNY Administration Ferrous Sulfate 325 mg 03/28/18 09:00 Ferosul PO BID YOVANNY Fluticasone/Vilanterol 1 puff 03/27/18 09:00 03/27/18 10:06 Breo Ellipta 100/25 Mcg Inh INH Not Given DAILY YOVANNY Furosemide 20 mg 03/27/18 09:00 03/27/18 09:55 Lasix PO 20 mg DAILY YOVANNY Administration Gabapentin 300 mg 03/26/18 21:00 03/27/18 20:17 Neurontin PO 300 mg HS YOVANNY Administration Azithromycin 500 mg/ Sodium 250 mls @ 250 mls/hr 03/27/18 13:00 03/27/18 15: 05 Chloride IV.SIG Infused Q24H YOVANNY Infusion Cefepime HCl 2,000 mg/ Sodium 100 mls @ 200 mls/hr 03/26/18 20:00 03/27/18 20 :50 Chloride IV.SIG Infused Q24H YOVANNY Infusion Linezolid 300 mls @ 300 mls/hr 03/26/18 20:00 03/27/18 21:20 Zyvox 600 Mg Premix IV.SIG Infused Q12H YOVANNY Infusion Lactulose 30 ml 03/26/18 13:00 Lactulose Liq PO DAILY PRN SEVERE CONSITIPATION Levothyroxine Sodium 150 mcg 03/27/18 06:00 03/28/18 05:59 Synthroid PO 150 mcg DAILY@0600 YOVANNY Administration Mirtazapine 30 mg 03/26/18 21:00 03/27/18 20:17 Remeron Soltab Odt PO 30 mg HS YOVANNY Administration Ondansetron HCl 4 mg 03/26/18 13:03 Zofran Inj IV.PUSH Q6H PRN NAUSEA OR VOMITING Pantoprazole Sodium 40 mg 03/26/18 21:00 03/27/18 20:17 Protonix PO 40 mg HS YOVANNY Administration Polyethylene Glycol 17 gm 03/27/18 09:00 03/27/18 09:56 Miralax PO 17 gm DAILY YOVANNY Administration Potassium Chloride 10 meq 03/27/18 09:00 03/27/18 09:56 Klor-Con 10 PO 10 meq DAILY YOVANNY Administration Prednisone 20 mg 03/27/18 09:00 03/27/18 10:31 Deltasone PO 20 mg DAILY YOVANNY Administration Senna/Docusate Sodium 1 tab 03/26/18 21:00 03/27/18 20:17 Aurelia-Colace PO 1 tab BID YOVANNY Administration Sennosides 17.2 mg 03/26/18 13:03 Senokot PO Q12H PRN Moderate Constipation Sodium Chloride 2 ml 03/26/18 11:14 Ns Flush IV.FLUSH PRN PRN FLUSH AFTER USING IV ACCESS Tamsulosin HCl 0.4 mg 03/26/18 21:00 03/27/18 20:17 Flomax PO 0.4 mg HS YOVANNY Administration Physical Exam Vital signs: Vital Signs 03/27/18 09:00 03/27/18 12:00 03/27/18 12:01 Temperature 98.9 F Pulse Rate 74 64 77 Respiratory Rate 20 18 Blood Pressure 147/67 H Pulse Oximetry 96 03/27/18 16:00 03/27/18 16:34 03/27/18 16:55 Temperature 98.3 F 98.4 F 98.1 F Pulse Rate 73 95 H 74 Respiratory Rate 20 20 18 Blood Pressure 159/74 H 171/80 H 165/76 H Pulse Oximetry 95 96 95 03/27/18 19:00 03/27/18 19:27 03/27/18 20:00 Temperature 98.8 F 98.8 F Pulse Rate 79 79 79 Respiratory Rate 18 19 18 Blood Pressure 152/72 H 152/72 H Pulse Oximetry 94 L 95 94 L 03/27/18 20:32 03/27/18 20:47 03/27/18 23:30 Temperature 98.3 F 98.3 F 97.8 F Pulse Rate 76 75 68 Respiratory Rate 18 18 18 Blood Pressure 166/72 H 160/71 H 141/64 H Pulse Oximetry 94 L 94 L 03/28/18 00:00 03/28/18 04:00 Temperature 97.5 F L 98.7 F Pulse Rate 64 71 Respiratory Rate 18 18 Blood Pressure 150/67 H 153/69 H Pulse Oximetry 96 96 Intake & Output 03/27/18 03/28/18 03/28/18 18:59 06:59 18:59 Intake Total 850 / 850 1260 / 1260 Output Total 750 / 750 Balance 100 / 100 1260 / 1260 Weight 264 lb 1.82 oz Intake: IV 550 / 550 400 / 400 Azithromycin Inj 500 MG In NS 250 / 250 Inj 250 ML @ 250 mls/hr IV.SIG Q24H YOVANNY Rx#:[id number] Maxipime Inj 2,000 MG In NS Inj 100 / 100 100 ML @ 200 mls/hr IV.SIG Q24H YOVANNY Rx#:[id number] Zyvox 600 mg Premix 300 ML @ 300 / 300 300 / 300 300 mls/hr IV.SIG Q12H YOVANNY Rx#: [id number] Oral 300 / 300 60 / 60 Intake (Blood Product) Amt 0 / 0 800 / 800 Rbc As-3 Leukoreduced Unit 400 / 400 [id number] Rbc As-3 Leukoreduced Unit 0 / 0 400 / 400 [id number] Output: Urine 750 / 750 Other: # Voids 8 # Incontinent Voids 1 Date of Last Bowel Movement 03/27/18 # Bowel Movements 1 0 - Routine Neck Exam Present: supple Comments: No lymphadenopathy. JVD difficult to assess due to obesity - Routine Respiratory Exam Present: CTA bilaterally Comments: Improved but restricted air exchange. No wheezes, rhonchi or rales - Routine Cardiovascular Exam Present: RRR - Routine Abdominal Exam Comments: Palpation limited due to obesity. Morbidly obese, soft, nontender with bowel sounds present - Routine Extremities Exam Comments: No edema. No calf tenderness or Homans sign. Results - Labs CBC & Chem 7: 03/28/18 06:43 03/28/18 06:43 Laboratory Results - last 24 hr 03/27/18 03/27/18 03/27/18 03:40 09:47 09:47 WBC RBC Hgb Hct MCV MCH MCHC RDW Plt Count MPV Prelim Diff (Auto) Neut % (Auto) Lymph % (Auto) [place] % (Auto) Eos % (Auto) Baso % (Auto) Neut # (Auto) Lymph # (Auto) [place] # (Auto) Eos # (Auto) Baso # (Auto) WBC Differential Manual diff final Seg Neuts % (Manual) 82 H Band Neuts % (Manual) 7 H Lymphocytes % (Manual) 8 L Monocytes % (Manual) 3 Abs Neuts (Manual) 5.0 Nucleated RBCs/100 WBC 1 H Differential Comment Platelet Estimate Low L Platelet Morphology Enlarged H Basophilic Stippling Moderate H Stomatocytes 3+ H Sodium Potassium Chloride Carbon Dioxide Anion Gap BUN Creatinine Estimated GFR Random Glucose Calcium Iron 32 L TIBC 248 L % Saturation 12.9 L Ferritin 474 H Total Bilirubin AST ALT Alkaline Phosphatase Total Protein Albumin Blood Type A Positive Antibody Screen Positive H Antibody Identification MTS Gel Crossmatch See Detail 03/27/18 03/28/18 03/28/18 13:44 06:43 06:43 WBC 4.3 RBC 3.13 L Hgb 9.6 L Hct 29.0 L MCV 92.6 D MCH 30.6 MCHC 33.0 RDW 19.3 H Plt Count 91 L MPV 7.9 Prelim Diff (Auto) Slide review pending Neut % (Auto) 71.8 H Lymph % (Auto) 18.9 [place] % (Auto) 8.2 H Eos % (Auto) 0.1 Baso % (Auto) 1.0 Neut # (Auto) 3.1 Lymph # (Auto) 0.8 L [place] # (Auto) 0.4 Eos # (Auto) 0.0 Baso # (Auto) 0.0 WBC Differential Seg Neuts % (Manual) Band Neuts % (Manual) Lymphocytes % (Manual) Monocytes % (Manual) Abs Neuts (Manual) Nucleated RBCs/100 WBC Differential Comment . Platelet Estimate Platelet Morphology Basophilic Stippling Stomatocytes Sodium 144 Potassium 4.1 Chloride 110 H Carbon Dioxide 27.9 Anion Gap 6 BUN 46 H Creatinine 2.78 H Estimated GFR 22 L Random Glucose 107 H Calcium 7.9 L Iron TIBC % Saturation Ferritin Total Bilirubin 0.4 AST 19 ALT 18 Alkaline Phosphatase 210 H Total Protein 7.1 Albumin 2.5 L Blood Type Antibody Screen Antibody Identification Anti-Ramona MTS Gel Crossmatch Microbiology 03/26/18 11:50 Blood - Peripheral Aerobic Blood Culture - Preliminary gram positive cocci 03/26/18 11:50 Blood - Peripheral Anaerobic Blood Culture - Preliminary No growth in 1 day 03/26/18 12:05 Blood - Peripheral Aerobic Blood Culture - Preliminary No growth in 1 day 03/26/18 12:05 Blood - Peripheral Anaerobic Blood Culture - Preliminary No growth in 1 day Assessment and Plan - Assessment (1) Pneumonia Code(s): J18.9 - Pneumonia, unspecified organism Status: Acute Plan: Sputum culture has not yet been obtained. Patient having difficulty expectorating. Antigen studies have not yet been done. I have left message for nurse to collect urine specimen for antigen studies. Patient continues with IV antibiotics per infectious disease. Continue with nebulizer treatments and I have ordered incentive spirometry. Out of bed. Wean oxygen as tolerated. (2) Chronic obstructive pulmonary disease Code(s): J44.9 - Chronic obstructive pulmonary disease, unspecified Status: Chronic Plan: Continue Breo ellipta and supplemental oxygen. Wean as tolerated. Continue with prednisone. (3) Hypertension Code(s): I10 - Essential (primary) hypertension Status: Chronic Plan: Blood pressure has been higher. We will add losartan 50 mg daily. Monitor blood pressure, renal function and electrolytes (4) Hypothyroidism Code(s): E03.9 - Hypothyroidism, unspecified Status: Chronic Plan: Continue with current dosage of levothyroxine. (5) Chronic kidney disease, stage III (moderate) Code(s): N18.3 - Chronic kidney disease, stage 3 (moderate) Status: Chronic Plan: Renal function is at baseline at this time. Will follow. (6) Anemia due to chronic kidney disease Code(s): N18.9 - Chronic kidney disease, unspecified; D63.1 - Anemia in chronic kidney disease Status: Chronic Plan: H&H are improved status post transfusion of 2 units of packed red blood cells. Iron levels are low. Begin ferrous sulfate 325 mg twice daily. Follow H&H. (7) GERD (gastroesophageal reflux disease) Code(s): K21.9 - Gastro-esophageal reflux disease without esophagitis Status: Chronic Plan: Continue PPI therapy (8) Adjustment disorder with mixed anxiety and depressed mood Code(s): F43.23 - Adjustment disorder with mixed anxiety and depressed mood Status: Chronic Plan: Continue with current medication. Mood is good at this time. (9) At high risk for deep venous thrombosis Code(s): Z91.89 - Other specified personal risk factors, not elsewhere classified Status: Acute Plan: Continue with subcutaneous Lovenox. (1) Pneumonia Qualifiers: Pneumonia type: due to unspecified organism Laterality: bilateral Lung location: unspecified part of lung Qualified Code(s): J18.9 - Pneumonia, unspecified organism (2) Chronic obstructive pulmonary disease Qualifiers: COPD type: unspecified COPD Qualified Code(s): J44.9 - Chronic obstructive pulmonary disease, unspecified (3) Hypertension Qualifiers: Hypertension type: essential hypertension Qualified Code(s): I10 - Essential (primary) hypertension (4) Hypothyroidism Qualifiers: Hypothyroidism type: postoperative Qualified Code(s): E89.0 - Postprocedural hypothyroidism (6) Anemia due to chronic kidney disease Qualifiers: Chronic kidney disease stage: stage 3 (moderate) Qualified Code(s): N18.3 - Chronic kidney disease, stage 3 (moderate); D63.1 - Anemia in chronic kidney disease (7) GERD (gastroesophageal reflux disease) Qualifiers: Esophagitis presence: without esophagitis Qualified Code(s): K21.9 - Gastro- esophageal reflux disease without esophagitis
[2018-03-28 08:53] LABS: Platelet Morphology Normal (Normal)
[2018-03-28] MEDS: amLODIPine 5 MG Tablet PO SCH (09:14)
[2018-03-28] MEDS: Carvedilol 6.25 MG Tablet PO SCH ×2 (09:14→21:37)
[2018-03-28] MEDS: Polyethylene Glycol 3350 17 GM Packet PO SCH (09:15)
[2018-03-28] MEDS: Furosemide 20 MG Tablet PO SCH (09:15)
[2018-03-28] MEDS: Senna/Docusate Sodium 8.6/50 MG Tablet PO SCH ×2 (09:15→21:38)
[2018-03-28] MEDS: predniSONE 20 MG Tablet PO SCH (09:41)
[2018-03-28] MEDS: Docusate Sodium 100 MG Capsule PO SCH ×2 (09:58→21:36)
[2018-03-28] MEDS: Ferrous Sulfate 325 MG Tablet PO SCH ×2 (09:59→21:36)
[2018-03-28] MEDS: Azithromycin Inj 500 MG in Sodium Chlor 0.9% Inj 250 ML IV.SIG SCH (14:00)
[2018-03-28] MEDS: Enoxaparin Inj 30 MG/0.3 ML Syringe SQ SCH (15:00)
[2018-03-28] MEDS: Gabapentin 300 MG Capsule PO SCH (21:37)
[2018-03-28] MEDS: MIRTAZAPINE 30 MG PO SCH (21:42)
[2018-03-29] MEDS: Acetaminophen 325 MG Tablet PO PRN ×2 (06:07→21:56)
[2018-03-29] MEDS: Levothyroxine 150 MCG Tablet PO SCH (06:07)
[2018-03-29 06:13] LABS: Baso % (Auto) 0.8 % (0.0-2.0); Hemoglobin 9.6 gm/dL (13.0-17.0); Lymph % (Auto) 20.7 % (9.0-44.0); Mean Corpuscular Hemoglobin 30.7 pg (27.0-34.0); Mean Corpuscular Volume 92.9 fL (80.0-100.0); Mean Platelet Volume 7.4 fL (7.0-11.0); Mono # (Auto) 0.4 th/mm3 (0.0-0.9); Mono % (Auto) 8.2 % (0.0-8.0); Neut # (Auto) 3.3 th/mm3 (1.8-7.7); Neut % (Auto) 70.3 % (16.0-70.0); Platelet Count 90 th/mm3 (150-450); Red Blood Count 3.12 mil/mm3 (4.50-5.90); Red Cell Distribution Width 19.4 % (11.6-17.2); White Blood Count 4.6 th/mm3 (4.0-11.0)
[2018-03-29 06:41] LABS: Calcium 8.1 mg/dL (8.5-10.1); Carbon Dioxide 27.3 meq/L (21.0-32.0); Potassium 4.1 meq/L (3.5-5.1)
[2018-03-29 07:33] LABS: Basophilic Stippling Moderate; Platelet Morphology Normal (Normal)
[2018-03-29] MEDS: predniSONE 20 MG Tablet PO SCH (08:11)
[2018-03-29] MEDS: Senna/Docusate Sodium 8.6/50 MG Tablet PO SCH ×2 (08:11→21:56)
[2018-03-29] MEDS: Docusate Sodium 100 MG Capsule PO SCH ×2 (08:11→21:56)
[2018-03-29] MEDS: Ferrous Sulfate 325 MG Tablet PO SCH ×2 (08:11→21:56)
[2018-03-29] MEDS: amLODIPine 5 MG Tablet PO SCH (08:11)
[2018-03-29] MEDS: Furosemide 20 MG Tablet PO SCH (08:11)
[2018-03-29] MEDS: Carvedilol 6.25 MG Tablet PO SCH ×2 (08:11→21:56)
[2018-03-29] MEDS: Polyethylene Glycol 3350 17 GM Packet PO SCH (08:19)
--- NOTE | 2018-03-29 08:33 | P.PN ---
Subjective Interval history: Respiratory status has improved. Patient is having much less coughing. Produces small amounts of sputum at times. Denies any shortness of breath with oxygen in place. Oxygen saturations 95-97% on 4 L/min per nasal cannula. Denies any chest pain, palpitations, abdominal pain, nausea or vomiting. Oral intake is good. Bowels are moving well with bowel movement yesterday. Urine output is good. Blood pressure is still elevated. Complained of some low back pain overnight and was given Tylenol which has helped. Patient has not yet been out of bed. Was evaluated by physical therapy yesterday. Active Medications Generic Name Dose Route Start Last Admin Trade Name Freq PRN Reason Stop Dose Admin Acetaminophen 650 mg 03/29/18 05:10 03/29/18 06:07 Tylenol PO 650 mg Q4H PRN Administration Temp > 100.4/ PAIN 1-5 Al Hydroxide/Mg Hydroxide 30 ml 03/26/18 13:03 Milk Of Magnesia Liq PO Q12H PRN Mild Constipation Albuterol 1 ampul 03/26/18 14:00 03/29/18 07:39 Duoneb Neb (Yovanny) NEB 1 ampul Q6HR WHILE AWAKE NEB YOVANNY Administration Amlodipine Besylate 5 mg 03/29/18 09:00 Norvasc PO DAILY YOVANNY Bisacodyl 10 mg 03/26/18 13:03 Dulcolax Supp RECTAL DAILY PRN SEVERE CONSITIPATION Carvedilol 6.25 mg 03/26/18 13:45 03/29/18 08:11 Coreg PO 6.25 mg BID YOVANNY Administration Docusate Sodium 100 mg 03/28/18 09:00 03/29/18 08:11 Colace PO 100 mg BID YOVANNY Administration Duloxetine HCl 30 mg 03/27/18 09:00 Cymbalta PO DAILY YOVANNY Enoxaparin Sodium 30 mg 03/26/18 15:00 03/28/18 15:00 Lovenox Inj SQ 30 mg Q24H YOVANNY Administration Ferrous Sulfate 325 mg 03/28/18 09:00 03/29/18 08:11 Ferosul PO 325 mg BID YOVANNY Administration Fluticasone/Vilanterol 1 puff 03/27/18 09:00 03/29/18 08:14 Breo Ellipta 100/25 Mcg Inh INH 1 puff DAILY YOVANNY Administration Furosemide 20 mg 03/27/18 09:00 03/29/18 08:11 Lasix PO 20 mg DAILY YOVANNY Administration Gabapentin 300 mg 03/26/18 21:00 03/28/18 21:37 Neurontin PO 300 mg HS YOVANNY Administration Azithromycin 500 mg/ Sodium 250 mls @ 250 mls/hr 03/27/18 13:00 03/28/18 15: 00 Chloride IV.SIG Infused Q24H YOVANNY Infusion Cefepime HCl 2,000 mg/ Sodium 100 mls @ 200 mls/hr 03/26/18 20:00 03/28/18 21 :45 Chloride IV.SIG Infused Q24H YOVANNY Infusion Linezolid 300 mls @ 300 mls/hr 03/26/18 20:00 03/29/18 08:15 Zyvox 600 Mg Premix IV.SIG 300 mls/hr Q12H YOVANNY Administration Lactulose 30 ml 03/26/18 13:00 Lactulose Liq PO DAILY PRN SEVERE CONSITIPATION Levothyroxine Sodium 150 mcg 03/27/18 06:00 03/29/18 06:07 Synthroid PO 150 mcg DAILY@0600 YOVANNY Administration Losartan Potassium 50 mg 03/28/18 09:00 03/29/18 08:11 Cozaar PO 50 mg DAILY YOVANNY Administration Mirtazapine 30 mg 03/26/18 21:00 03/28/18 21:42 Remeron Soltab Odt PO 30 mg HS YOVANNY Administration Ondansetron HCl 4 mg 03/26/18 13:03 Zofran Inj IV.PUSH Q6H PRN NAUSEA OR VOMITING Pantoprazole Sodium 40 mg 03/26/18 21:00 03/28/18 21:37 Protonix PO 40 mg HS YOVANNY Administration Polyethylene Glycol 17 gm 03/27/18 09:00 03/29/18 08:19 Miralax PO 17 gm DAILY YOVANNY Administration Potassium Chloride 10 meq 03/27/18 09:00 03/29/18 08:10 Klor-Con 10 PO 10 meq DAILY YOVANNY Administration Prednisone 20 mg 03/27/18 09:00 03/29/18 08:11 Deltasone PO 20 mg DAILY YOVANNY Administration Senna/Docusate Sodium 1 tab 03/26/18 21:00 03/29/18 08:11 Aurelia-Colace PO 1 tab BID YOVANNY Administration Sennosides 17.2 mg 03/26/18 13:03 Senokot PO Q12H PRN Moderate Constipation Sodium Chloride 2 ml 03/26/18 11:14 03/29/18 08:13 Ns Flush IV.FLUSH 2 ml PRN PRN Administration FLUSH AFTER USING IV ACCESS Tamsulosin HCl 0.4 mg 03/26/18 21:00 03/28/18 21:37 Flomax PO 0.4 mg HS YOVANNY Administration Physical Exam Vital signs: Vital Signs 03/28/18 09:10 03/28/18 12:00 03/28/18 16:00 Temperature 98.6 F 98.9 F Pulse Rate 72 69 Respiratory Rate 20 20 Blood Pressure 149/67 H 169/76 H Pulse Oximetry 97 95 96 03/28/18 19:52 03/28/18 20:00 03/28/18 23:57 Temperature 99.3 F 99.3 F Pulse Rate 68 70 67 Respiratory Rate 18 18 18 Blood Pressure 165/71 H 160/59 H Pulse Oximetry 96 93 L 95 03/29/18 00:00 03/29/18 04:00 03/29/18 06:40 Temperature 97.9 F Pulse Rate 67 71 Respiratory Rate 18 20 Blood Pressure 154/72 H Pulse Oximetry 97 03/29/18 07:41 Temperature Pulse Rate 66 Respiratory Rate 18 Blood Pressure Pulse Oximetry 97 Intake & Output 03/28/18 03/29/18 03/29/18 18:59 06:59 18:59 Intake Total 1220 / 1220 640 / 640 Balance 1220 / 1220 640 / 640 Weight 256 lb 13.416 oz Intake: IV 800 / 800 400 / 400 Azithromycin Inj 500 MG In NS 250 / 250 Inj 250 ML @ 250 mls/hr IV.SIG Q24H YOVANNY Rx#:[id number] Maxipime Inj 2,000 MG In NS Inj 100 / 100 100 ML @ 200 mls/hr IV.SIG Q24H YOVANNY Rx#:[id number] Zyvox 600 mg Premix 300 ML @ 300 / 300 300 / 300 300 mls/hr IV.SIG Q12H YOVANNY Rx#: [id number] NS Inj 250 ML @ 15 mls/hr IV. 250 / 250 SIG ONCE YOVANNY Rx#:[id number] Oral 420 / 420 240 / 240 Other: # Voids 5 8 Date of Last Bowel Movement 03/27/18 # Bowel Movements 1 0 - Constitutional Comments: Morbidly obese elderly white male lying in bed with oxygen in place in no acute distress - Routine Neck Exam Present: supple Comments: No lymphadenopathy or bruits. JVD difficult to assess due to obesity. - Routine Respiratory Exam Comments: Trace end expiratory wheezes. Improved but still restricted air exchange. Diminished breath sounds in the bases. No rhonchi or rales. - Routine Cardiovascular Exam Comments: Regular rate and rhythm without murmur - Routine Abdominal Exam Comments: Morbidly obese, soft, mild distention, bowel sounds present, no masses, however , palpation limited due to obesity - Routine Extremities Exam Comments: No edema, calf tenderness or Homans sign. Results - Labs CBC & Chem 7: 03/29/18 04:17 03/29/18 04:17 Laboratory Results - last 24 hr 03/28/18 03/29/18 03/29/18 06:43 04:17 04:17 WBC 4.6 RBC 3.12 L Hgb 9.6 L Hct 29.0 L MCV 92.9 MCH 30.7 MCHC 33.0 RDW 19.4 H Plt Count 90 L MPV 7.4 Prelim Diff (Auto) Slide review pending Neut % (Auto) 70.3 H Lymph % (Auto) 20.7 [place] % (Auto) 8.2 H Eos % (Auto) 0.0 Baso % (Auto) 0.8 Neut # (Auto) 3.3 Lymph # (Auto) 1.0 [place] # (Auto) 0.4 Eos # (Auto) 0.0 Baso # (Auto) 0.0 WBC Differential . . Diff Scan Auto diff confirmed Auto diff confirmed Differential Comment . Platelet Estimate Low L Low L Platelet Morphology Normal Normal Basophilic Stippling Faint H Moderate H Sodium 145 Potassium 4.1 Chloride 112 H Carbon Dioxide 27.3 Anion Gap 6 BUN 49 H Creatinine 2.53 H Estimated GFR 25 L Random Glucose 99 Calcium 8.1 L Microbiology 03/28/18 17:50 Urine - Random Urine Streptococcus pneumoniae Antigen (M - Final Presumptive negative for streptococcus pneumoniae antigen, suggesting no current or recent infection. Infection due to Streptococcus pneumoniae cannot be ruled out since the antigen present in the sample may be below the detection limit of the test. 03/28/18 17:50 Urine - Random Urine Legionella Antigen - Final Presumptive negative for Legionella pneumophila serogroup 1 antigen in urine, suggesting no recent or recurrent infection. Infection due to Legionella cannot be ruled out since other serogroups and species may cause disease, antigen may not be present in urine in early infection, and the level of antigen present in the urine may be below the detection limit of the test. 03/26/18 11:50 Blood - Peripheral Aerobic Blood Culture - Preliminary Staphylococcus coag negative 03/26/18 11:50 Blood - Peripheral Anaerobic Blood Culture - Preliminary No growth in 2 days 03/26/18 12:05 Blood - Peripheral Aerobic Blood Culture - Preliminary No growth in 2 days 03/26/18 12:05 Blood - Peripheral Anaerobic Blood Culture - Preliminary No growth in 2 days Assessment and Plan - Assessment (1) Pneumonia Code(s): J18.9 - Pneumonia, unspecified organism Status: Acute Plan: Clinically improving. Antigen testing negative for Legionella and pneumococcus. Blood culture was positive for coagulase-negative staph. Clinical significance uncertain. Patient tolerating IV antibiotics. Will defer timing of change to oral antibiotics to infectious disease. We will begin to wean oxygen. Increase activity. (2) Chronic obstructive pulmonary disease Code(s): J44.9 - Chronic obstructive pulmonary disease, unspecified Status: Chronic Plan: Continue Breo ellipta and wean supplemental oxygen as tolerated. Continue prednisone and nebulizer treatments. (3) Hypertension Code(s): I10 - Essential (primary) hypertension Status: Chronic Plan: Blood pressure has been higher. Increase amlodipine to 5 mg daily. Monitor blood pressure closely. (4) Hypothyroidism Code(s): E03.9 - Hypothyroidism, unspecified Status: Chronic Plan: Continue with current dosage of levothyroxine. (5) Chronic kidney disease, stage III (moderate) Code(s): N18.3 - Chronic kidney disease, stage 3 (moderate) Status: Chronic Plan: Renal function stable. Will follow. (6) Anemia due to chronic kidney disease Code(s): N18.9 - Chronic kidney disease, unspecified; D63.1 - Anemia in chronic kidney disease Status: Chronic Plan: H&H are stable status post transfusion of 2 units of packed red blood cells. Patient also with iron deficiency. Receiving ferrous sulfate 325 mg twice a day. We will continue to monitor H&H. Patient will resume Procrit as an outpatient. (7) GERD (gastroesophageal reflux disease) Code(s): K21.9 - Gastro-esophageal reflux disease without esophagitis Status: Chronic Plan: Continue PPI therapy (8) Adjustment disorder with mixed anxiety and depressed mood Code(s): F43.23 - Adjustment disorder with mixed anxiety and depressed mood Status: Chronic Plan: Continue with current medication. Mood is good at this time. (9) At high risk for deep venous thrombosis Code(s): Z91.89 - Other specified personal risk factors, not elsewhere classified Status: Acute Plan: Continue with subcutaneous Lovenox. (1) Pneumonia Qualifiers: Pneumonia type: due to unspecified organism Laterality: bilateral Lung location: unspecified part of lung Qualified Code(s): J18.9 - Pneumonia, unspecified organism (2) Chronic obstructive pulmonary disease Qualifiers: COPD type: unspecified COPD Qualified Code(s): J44.9 - Chronic obstructive pulmonary disease, unspecified (3) Hypertension Qualifiers: Hypertension type: essential hypertension Qualified Code(s): I10 - Essential (primary) hypertension (4) Hypothyroidism Qualifiers: Hypothyroidism type: postoperative Qualified Code(s): E89.0 - Postprocedural hypothyroidism (6) Anemia due to chronic kidney disease Qualifiers: Chronic kidney disease stage: stage 3 (moderate) Qualified Code(s): N18.3 - Chronic kidney disease, stage 3 (moderate); D63.1 - Anemia in chronic kidney disease (7) GERD (gastroesophageal reflux disease) Qualifiers: Esophagitis presence: without esophagitis Qualified Code(s): K21.9 - Gastro- esophageal reflux disease without esophagitis
[2018-03-29] MEDS ORDERED: amLODIPine 5 MG Tablet PO SCH (09:00)
[2018-03-29] MEDS ORDERED: amLODIPine 5 MG Tablet PO ONE (10:30)
[2018-03-29] MEDS: Azithromycin Inj 500 MG in Sodium Chlor 0.9% Inj 250 ML IV.SIG SCH (12:54)
[2018-03-29] MEDS: Enoxaparin Inj 30 MG/0.3 ML Syringe SQ SCH (14:31)
[2018-03-29] MEDS: Gabapentin 300 MG Capsule PO SCH (21:56)
[2018-03-29] MEDS: MIRTAZAPINE 30 MG PO SCH (21:56)
--- NOTE | 2018-03-29 23:31 | P.PNID ---
Subjective Remarks: growing GPC in pairs, clusters in 1/4 bottles no fever no leeukocytosis Antibiotics: cefepime zyvox azithro Allergies/Adverse Reactions: Allergies hydrocodone Allergy (Severe, Verified 03/26/18 10:45) Anaphylaxis adhesive Allergy (Unknown, Verified 03/26/18 10:45) Anaphylaxis pt to pacu with redness noted to skin per stock selector pt appears to have allergy to adhesive tape spoke with pt, pt aware md made aware per stock selector, skin intact, per stock selector site to l chest area improving after pads removed Objective Vital Signs 03/28/18 23:57 03/29/18 00:00 03/29/18 04:00 Temperature 99.3 F 97.9 F Pulse Rate 67 67 71 Respiratory Rate 18 18 Blood Pressure 160/59 H 154/72 H Pulse Oximetry 95 97 03/29/18 06:40 03/29/18 07:35 03/29/18 07:41 Temperature Pulse Rate 66 66 Respiratory Rate 20 18 Blood Pressure Pulse Oximetry 97 03/29/18 08:00 03/29/18 11:39 03/29/18 12:00 Temperature 98.7 F 98.1 F Pulse Rate 66 64 63 Respiratory Rate 18 18 Blood Pressure 167/74 H 163/70 H Pulse Oximetry 96 96 03/29/18 13:30 03/29/18 16:00 03/29/18 16:15 Temperature 98.1 F Pulse Rate 75 65 63 Respiratory Rate 18 18 Blood Pressure 167/69 H Pulse Oximetry 95 03/29/18 19:24 03/29/18 19:26 03/29/18 20:00 Temperature 99 F Pulse Rate 70 70 Respiratory Rate 16 20 Blood Pressure 177/74 H Pulse Oximetry 93 L 95 03/29/18 21:00 Temperature Pulse Rate Respiratory Rate Blood Pressure 162/70 H Pulse Oximetry Intake & Output 03/29/18 03/29/18 03/30/18 06:59 18:59 06:59 Intake Total 640 / 640 2202 / 2202 Balance 640 / 640 2202 / 2202 Weight 116.5 kg Intake: IV 400 / 400 550 / 550 Azithromycin Inj 500 MG In NS 250 / 250 Inj 250 ML @ 250 mls/hr IV.SIG Q24H [facility] Rx#:[id number] Maxipime Inj 2,000 MG In NS Inj 100 / 100 100 ML @ 200 mls/hr IV.SIG Q24H [facility] Rx#:[id number] Zyvox 600 mg Premix 300 ML @ 300 / 300 300 / 300 300 mls/hr IV.SIG Q12H [facility] Rx#: [id number] Oral 240 / 240 1652 / 1652 Other: # Voids 8 # Incontinent Voids 5 Date of Last Bowel Movement 03/27/18 03/27/18 # Bowel Movements 0 # Incontinent Bowel Movements 1 03/26/18 11:50 Blood - Peripheral Aerobic Blood Culture - Preliminary Staphylococcus coag negative 03/26/18 11:50 Blood - Peripheral Anaerobic Blood Culture - Preliminary No growth in 3 days 03/26/18 12:05 Blood - Peripheral Aerobic Blood Culture - Preliminary No growth in 3 days 03/26/18 12:05 Blood - Peripheral Anaerobic Blood Culture - Preliminary No growth in 3 days 03/28/18 17:50 Urine - Random Urine Streptococcus pneumoniae Antigen (M - Final Presumptive negative for streptococcus pneumoniae antigen, suggesting no current or recent infection. Infection due to Streptococcus pneumoniae cannot be ruled out since the antigen present in the sample may be below the detection limit of the test. 03/28/18 17:50 Urine - Random Urine Legionella Antigen - Final Presumptive negative for Legionella pneumophila serogroup 1 antigen in urine, suggesting no recent or recurrent infection. Infection due to Legionella cannot be ruled out since other serogroups and species may cause disease, antigen may not be present in urine in early infection, and the level of antigen present in the urine may be below the detection limit of the test. Lab - Hematology Results 03/28/18 03/29/18 06:43 04:17 WBC 4.3 4.6 RBC 3.13 L 3.12 L Hgb 9.6 L 9.6 L Hct 29.0 L 29.0 L MCV 92.6 D 92.9 MCH 30.6 30.7 MCHC 33.0 33.0 RDW 19.3 H 19.4 H Plt Count 91 L 90 L MPV 7.9 7.4 Prelim Diff (Auto) Slide review pending Slide review pending Neut % (Auto) 71.8 H 70.3 H Lymph % (Auto) 18.9 20.7 [place] % (Auto) 8.2 H 8.2 H Eos % (Auto) 0.1 0.0 Baso % (Auto) 1.0 0.8 Neut # (Auto) 3.1 3.3 Lymph # (Auto) 0.8 L 1.0 [place] # (Auto) 0.4 0.4 Eos # (Auto) 0.0 0.0 Baso # (Auto) 0.0 0.0 WBC Differential . . Diff Scan Auto diff confirmed Auto diff confirmed Differential Comment . . Platelet Estimate Low L Low L Platelet Morphology Normal Normal Basophilic Stippling Faint H Moderate H Lab - Chemistry Results 03/28/18 03/29/18 06:43 04:17 Sodium 144 145 Potassium 4.1 4.1 Chloride 110 H 112 H Carbon Dioxide 27.9 27.3 Anion Gap 6 6 BUN 46 H 49 H Creatinine 2.78 H 2.53 H Estimated GFR 22 L 25 L Random Glucose 107 H 99 Calcium 7.9 L 8.1 L Total Bilirubin 0.4 AST 19 ALT 18 Alkaline Phosphatase 210 H Total Protein 7.1 Albumin 2.5 L Imaging: ITS Impressions Chest CT 03/26/18 00:00 CONCLUSION: 1. Cardiomegaly. 2. Consolidative changes in the lung bases. 3. The nodules identified appear to represent a combination of fluid within the fissure on the right and a dilated pulmonary artery on the left. Chest X-Ray 03/26/18 11:14 CONCLUSION: 1. There are bilateral pulmonary nodules 1.7 cm on the right 1 cm on the left these appear almost calcific density but are new compared to previous dated 11/11. CT imaging of the thorax is warranted for further assessment. 2. Bibasilar areas of infiltrate suggesting a pneumonia. Physical Exam: GENERAL: NAD. Morbidly obese looks sourav today SKIN: Warm and dry. HEAD: Atraumatic. Normocephalic. EYES: Pupils equal and round. No scleral icterus. No injection or drainage. ENT: No nasal bleeding or discharge. Mucous membranes pink and moist. NECK: Trachea midline. No JVD. CARDIOVASCULAR: Regular rate and rhythm. RESPIRATORY: No accessory muscle use. Clear to auscultation. Breath sounds diminished bilaterally. GASTROINTESTINAL: Abdomen soft, non-tender, nondistended. Hepatic and splenic margins not palpable. MUSCULOSKELETAL: Extremities without clubbing, cyanosis, + some edema. No obvious deformities. NEUROLOGICAL: Awake and alert. Non focal glrossly Normal speech. PSYCHIATRIC: Appropriate mood and affect; Assessment and Plan - Plan PNA, b/l infiltrates COPD exacerbation ARF on CKD Low grade bacteremia ? significance Presented with respmsm, low grade bacteremia, coag negative staph: doubt clinical significance cont azithro, cont zyvox cont cefepime sputum clx Leg/pneumococcus/flu fu P bl clx dw RN dw caregiver
[2018-03-30] MEDS ORDERED: amLODIPine 5 MG Tablet PO SCH ×2 (04:00→09:00)
[2018-03-30] MEDS: Levothyroxine 150 MCG Tablet PO SCH (05:20)
[2018-03-30 07:21] LABS: Baso % (Auto) 0.7 % (0.0-2.0); Eos % (Auto) 0.1 % (0.0-4.0); Hematocrit 30.1 % (39.0-51.0); Lymph # (Auto) 1.2 th/mm3 (1.0-4.8); Lymph % (Auto) 25.8 % (9.0-44.0); Mean Corpuscular HGB Conc 33.2 % (32.0-36.0); Mean Corpuscular Hemoglobin 30.7 pg (27.0-34.0); Mean Corpuscular Volume 92.4 fL (80.0-100.0); Mean Platelet Volume 7.8 fL (7.0-11.0); Mono # (Auto) 0.3 th/mm3 (0.0-0.9); Mono % (Auto) 7.5 % (0.0-8.0); Neut % (Auto) 65.9 % (16.0-70.0); Platelet Count 95 th/mm3 (150-450); Red Blood Count 3.26 mil/mm3 (4.50-5.90); Red Cell Distribution Width 19.5 % (11.6-17.2); White Blood Count 4.6 th/mm3 (4.0-11.0)
[2018-03-30] MEDS: Ferrous Sulfate 325 MG Tablet PO SCH ×2 (08:04→21:35)
[2018-03-30] MEDS: Carvedilol 6.25 MG Tablet PO SCH ×2 (08:04→21:47)
[2018-03-30] MEDS: predniSONE 20 MG Tablet PO SCH (08:05)
[2018-03-30] MEDS: Furosemide 20 MG Tablet PO SCH (08:05)
[2018-03-30] MEDS: Docusate Sodium 100 MG Capsule PO SCH ×2 (08:06→21:35)
[2018-03-30] MEDS: Senna/Docusate Sodium 8.6/50 MG Tablet PO SCH ×2 (08:06→21:35)
[2018-03-30] MEDS: Polyethylene Glycol 3350 17 GM Packet PO SCH (08:06)
[2018-03-30] MEDS: Acetaminophen 325 MG Tablet PO PRN ×2 (08:15→21:46)
--- NOTE | 2018-03-30 08:29 | P.DCO ---
- Physical Therapy Order: Evaluate and treat, Improve ambulation, Strength and gait training - Occupational Therapy Order: Evaluate and treat, Improve ADL, Fine motor coordination - Home Health Nursing Order: Medical education, Signs/symptoms of disease process, Oxygen administration education, Medication education-adverse effect - Home Health Aide Order: To assist in: Bathing and personal care - Case Management Consult Case Management Consult-Home Health: Yes - Certification I have seen patient Conrado Merchant on 03/30/18. My clinical findings support the need for the requested home health care services because: The patient will be homebound due to limited mobility due to generalized weakness and poor respiratory reserve. Limited mobility due to disease progression, Patient has SOB, Limited ability to care for self, High risk of falls, Infection with risk of complications I certify that my clinical findings support that this patient is homebound because: Hx COPD - exertion dyspnea/weakness, Unsafe to leave home unassisted, Unable to use public transportation, Poor cardiac reserve
[2018-03-30 08:30] LABS: Basophilic Stippling Moderate; Platelet Morphology Normal (Normal)
--- NOTE | 2018-03-30 08:41 | P.PN ---
Subjective Interval history: The patient's blood pressure was elevated overnight, however, he admits he was anxious and unable to sleep. He was given amlodipine 5 mg. Repeat blood pressure is pending. He has a strong desire to be discharged home. Oxygen saturations are good with O2 at 2 L/min per nasal cannula. Minimal cough. Patient states he is using his incentive spirometer. Denies any chest pain or palpitations. Urine output has been good. He reports that he has had bowel movements. Appetite is good. Nurses report that patient has reddened groin bilaterally. Active Medications Generic Name Dose Route Start Last Admin Trade Name Freq PRN Reason Stop Dose Admin Acetaminophen 650 mg 03/29/18 05:10 03/30/18 08:15 Tylenol PO 650 mg Q4H PRN Administration Temp > 100.4/ PAIN 1-5 Al Hydroxide/Mg Hydroxide 30 ml 03/26/18 13:03 Milk Of Magnesia Liq PO Q12H PRN Mild Constipation Albuterol 1 ampul 03/26/18 14:00 03/30/18 08:09 Duoneb Neb (Yovanny) NEB 1 ampul Q6HR WHILE AWAKE NEB YOVANNY Administration Amlodipine Besylate 5 mg 03/31/18 09:00 Norvasc PO DAILY [facility]ANNY Bisacodyl 10 mg 03/26/18 13:03 Dulcolax Supp RECTAL DAILY PRN SEVERE CONSITIPATION Carvedilol 6.25 mg 03/26/18 13:45 03/30/18 08:04 Coreg PO 6.25 mg BID YOVANNY Administration Docusate Sodium 100 mg 03/28/18 09:00 03/30/18 08:06 Colace PO Not Given BID YOVANNY Duloxetine HCl 30 mg 03/27/18 09:00 Cymbalta PO DAILY [facility]ANNY Enoxaparin Sodium 30 mg 03/26/18 15:00 03/29/18 14:31 Lovenox Inj SQ 30 mg Q24H [facility] Administration Ferrous Sulfate 325 mg 03/28/18 09:00 03/30/18 08:04 Ferosul PO 325 mg BID YOVANNY Administration Fluticasone/Vilanterol 1 puff 03/27/18 09:00 03/30/18 08:08 Breo Ellipta 100/25 Mcg Inh INH 1 puff DAILY YOVANNY Administration Furosemide 20 mg 03/27/18 09:00 03/30/18 08:05 Lasix PO 20 mg DAILY [facility]ANNY Administration Gabapentin 300 mg 03/26/18 21:00 03/29/18 21:56 Neurontin PO 300 mg HS Y[facility]ANNY Administration Azithromycin 500 mg/ Sodium 250 mls @ 250 mls/hr 03/27/18 13:00 03/29/18 14: 04 Chloride IV.SIG Infused Q24H [facility] Infusion Cefepime HCl 2,000 mg/ Sodium 100 mls @ 200 mls/hr 03/26/18 20:00 03/29/18 22 :25 Chloride IV.SIG Infused Q24H [facility] Infusion Linezolid 300 mls @ 300 mls/hr 03/26/18 20:00 03/30/18 08:09 Zyvox 600 Mg Premix IV.SIG 300 mls/hr Q12H [facility] Administration Lactulose 30 ml 03/26/18 13:00 Lactulose Liq PO DAILY PRN SEVERE CONSITIPATION Levothyroxine Sodium 150 mcg 03/27/18 06:00 03/30/18 05:20 Synthroid PO 150 mcg DAILY@0600 [facility]ANNY Administration Losartan Potassium 50 mg 03/28/18 09:00 03/30/18 08:05 Cozaar PO 50 mg DAILY [facility] Administration Mirtazapine 30 mg 03/26/18 21:00 03/29/18 21:56 Remeron Soltab Odt PO 30 mg HS [facility]NY Administration Nystatin 1 applicatio 03/30/18 09:00 Mycostatin Powder TOPICAL BID [facility]ANNY Ondansetron HCl 4 mg 03/26/18 13:03 Zofran Inj IV.PUSH Q6H PRN NAUSEA OR VOMITING Pantoprazole Sodium 40 mg 03/26/18 21:00 03/29/18 21:56 Protonix PO 40 mg HS [facility] Administration Polyethylene Glycol 17 gm 03/27/18 09:00 03/30/18 08:06 Miralax PO Not Given DAILY [facility] Potassium Chloride 10 meq 03/27/18 09:00 03/30/18 08:05 Klor-Con 10 PO 10 meq DAILY [facility] Administration Prednisone 20 mg 03/27/18 09:00 03/30/18 08:05 Deltasone PO 20 mg DAILY [facility] Administration Senna/Docusate Sodium 1 tab 03/26/18 21:00 03/30/18 08:06 Aurelia-Colace PO Not Given BID YOVANNY Sennosides 17.2 mg 03/26/18 13:03 Senokot PO Q12H PRN Moderate Constipation Sodium Chloride 2 ml 03/26/18 11:14 03/30/18 08:13 Ns Flush IV.FLUSH 2 ml PRN PRN Administration FLUSH AFTER USING IV ACCESS Tamsulosin HCl 0.4 mg 03/26/18 21:00 03/29/18 21:56 Flomax PO 0.4 mg HS [facility] Administration Physical Exam Vital signs: Vital Signs 03/29/18 11:39 03/29/18 12:00 03/29/18 13:30 Temperature 98.1 F Pulse Rate 64 63 75 Respiratory Rate 18 18 Blood Pressure 163/70 H Pulse Oximetry 96 03/29/18 16:00 03/29/18 16:15 03/29/18 19:24 Temperature 98.1 F Pulse Rate 65 63 70 Respiratory Rate 18 16 Blood Pressure 167/69 H Pulse Oximetry 95 03/29/18 19:26 03/29/18 20:00 03/29/18 21:00 Temperature 99 F Pulse Rate 67 Respiratory Rate 20 Blood Pressure 177/74 H 162/70 H Pulse Oximetry 93 L 95 03/29/18 23:54 03/30/18 00:00 03/30/18 03:00 Temperature 97.8 F 97.3 F L Pulse Rate 62 67 58 L Respiratory Rate 20 20 Blood Pressure 164/75 H 178/80 H Pulse Oximetry 96 94 L 03/30/18 04:00 03/30/18 08:11 03/30/18 08:25 Temperature 98.1 F Pulse Rate 58 L 69 67 Respiratory Rate 18 17 Blood Pressure 190/86 H Pulse Oximetry 97 95 Intake & Output 03/29/18 03/30/18 03/30/18 18:59 06:59 18:59 Intake Total 2202 / 2202 640 / 640 Balance 2202 / 2202 640 / 640 Weight 253 lb 15.56 oz Intake: IV 550 / 550 400 / 400 Azithromycin Inj 500 MG In NS 250 / 250 Inj 250 ML @ 250 mls/hr IV.SIG Q24H [facility] Rx#:[id number] Maxipime Inj 2,000 MG In NS Inj 100 / 100 100 ML @ 200 mls/hr IV.SIG Q24H [facility] Rx#:[id number] Zyvox 600 mg Premix 300 ML @ 300 / 300 300 / 300 300 mls/hr IV.SIG Q12H [facility] Rx#: [id number] Oral 1652 / 1652 240 / 240 Other: # Voids 8 # Incontinent Voids 5 Date of Last Bowel Movement 03/27/18 03/27/18 # Bowel Movements 2 # Incontinent Bowel Movements 1 - Constitutional Comments: Morbidly obese elderly white male lying in bed in no acute distress - Routine Neck Exam Comments: Supple without lymphadenopathy or thyromegaly. Trachea midline. - Routine Respiratory Exam Comments: Right-sided expiratory wheezes. Clear on the left. No rales or rhonchi. Improved but still restricted air exchange. - Routine Cardiovascular Exam Present: RRR - Routine Abdominal Exam Comments: Morbidly obese, soft, nontender with bowel sounds present - Routine Extremities Exam Comments: No edema or calf tenderness. No Homans sign present. Results - Labs CBC & Chem 7: 03/30/18 06:33 03/29/18 04:17 Laboratory Results - last 24 hr 03/30/18 06:33 WBC 4.6 RBC 3.26 L Hgb 10.0 L Hct 30.1 L MCV 92.4 MCH 30.7 MCHC 33.2 RDW 19.5 H Plt Count 95 L MPV 7.8 Prelim Diff (Auto) Slide review pending Neut % (Auto) 65.9 Lymph % (Auto) 25.8 [place] % (Auto) 7.5 Eos % (Auto) 0.1 Baso % (Auto) 0.7 Neut # (Auto) 3.0 Lymph # (Auto) 1.2 [place] # (Auto) 0.3 Eos # (Auto) 0.0 Baso # (Auto) 0.0 WBC Differential . Diff Scan Auto diff confirmed Differential Comment . Platelet Estimate Low L Platelet Morphology Normal Basophilic Stippling Moderate H Microbiology 03/26/18 11:50 Blood - Peripheral Aerobic Blood Culture - Preliminary Staphylococcus coag negative 03/26/18 11:50 Blood - Peripheral Anaerobic Blood Culture - Preliminary No growth in 3 days 03/26/18 12:05 Blood - Peripheral Aerobic Blood Culture - Preliminary No growth in 3 days 03/26/18 12:05 Blood - Peripheral Anaerobic Blood Culture - Preliminary No growth in 3 days Assessment and Plan - Assessment (1) Pneumonia Code(s): J18.9 - Pneumonia, unspecified organism Status: Acute Plan: Clinically improving. Have been able to wean oxygen to 2 L/min per nasal cannula. Awaiting transition to oral antibiotics which will be determined by infectious disease. (2) Chronic obstructive pulmonary disease Code(s): J44.9 - Chronic obstructive pulmonary disease, unspecified Status: Chronic Plan: The patient had an exacerbation due to the pneumonia. Respiratory status improving as pneumonia resolved. Will continue with prednisone and wean slowly as an outpatient. Continue with nebulizer treatments and Breo (3) Hypertension Code(s): I10 - Essential (primary) hypertension Status: Chronic Plan: Blood pressure is elevated when patient more anxious. I have increased his amlodipine to 5 mg daily. Continue with antihypertensive therapy. Provide clonidine as needed for elevated blood pressure readings. (4) Hypothyroidism Code(s): E03.9 - Hypothyroidism, unspecified Status: Chronic Plan: Continue with current dosage of levothyroxine. (5) Chronic kidney disease, stage III (moderate) Code(s): N18.3 - Chronic kidney disease, stage 3 (moderate) Status: Chronic Plan: Renal function stable. Will follow. (6) Anemia due to chronic kidney disease Code(s): N18.9 - Chronic kidney disease, unspecified; D63.1 - Anemia in chronic kidney disease Status: Chronic Plan: H&H are stable status post transfusion of 2 units of packed red blood cells. Cont ferrous sulfate 325 mg twice a day. We will continue to monitor H&H. Patient will resume Procrit as an outpatient if needed. (7) GERD (gastroesophageal reflux disease) Code(s): K21.9 - Gastro-esophageal reflux disease without esophagitis Status: Chronic Plan: Continue PPI therapy (8) Adjustment disorder with mixed anxiety and depressed mood Code(s): F43.23 - Adjustment disorder with mixed anxiety and depressed mood Status: Chronic Plan: Continue with current medication. Mood is good at this time. (9) At high risk for deep venous thrombosis Code(s): Z91.89 - Other specified personal risk factors, not elsewhere classified Status: Acute Plan: Continue with subcutaneous Lovenox. (10) Tinea cruris Code(s): B35.6 - Tinea cruris Status: Acute Plan: Will treat with Mycostatin powder (1) Pneumonia Qualifiers: Pneumonia type: due to unspecified organism Laterality: bilateral Lung location: unspecified part of lung Qualified Code(s): J18.9 - Pneumonia, unspecified organism (2) Chronic obstructive pulmonary disease Qualifiers: COPD type: COPD with acute exacerbation Qualified Code(s): J44.1 - Chronic obstructive pulmonary disease with (acute) exacerbation (3) Hypertension Qualifiers: Hypertension type: essential hypertension Qualified Code(s): I10 - Essential (primary) hypertension (4) Hypothyroidism Qualifiers: Hypothyroidism type: postoperative Qualified Code(s): E89.0 - Postprocedural hypothyroidism (6) Anemia due to chronic kidney disease Qualifiers: Chronic kidney disease stage: stage 3 (moderate) Qualified Code(s): N18.3 - Chronic kidney disease, stage 3 (moderate); D63.1 - Anemia in chronic kidney disease (7) GERD (gastroesophageal reflux disease) Qualifiers: Esophagitis presence: without esophagitis Qualified Code(s): K21.9 - Gastro- esophageal reflux disease without esophagitis
[2018-03-30] MEDS: Nystatin 100,000 UNITS/GM Powder 15 GM Bottle TOPICAL SCH ×2 (12:14→21:48)
[2018-03-30] MEDS: Azithromycin Inj 500 MG in Sodium Chlor 0.9% Inj 250 ML IV.SIG SCH (12:15)
[2018-03-30] MEDS: Enoxaparin Inj 30 MG/0.3 ML Syringe SQ SCH (14:10)
[2018-03-30 20:43] VITALS: RESP 18
[2018-03-30] MEDS: Gabapentin 300 MG Capsule PO SCH (21:35)
[2018-03-30] MEDS: MIRTAZAPINE 30 MG PO SCH (21:45)
[2018-03-31] MEDS: Levothyroxine 150 MCG Tablet PO SCH (04:59)
[2018-03-31 07:05] LABS: Baso % (Auto) 0.6 % (0.0-2.0); Eos % (Auto) 0.2 % (0.0-4.0); Hematocrit 29.8 % (39.0-51.0); Hemoglobin 9.6 gm/dL (13.0-17.0); Lymph # (Auto) 1.1 th/mm3 (1.0-4.8); Lymph % (Auto) 27.4 % (9.0-44.0); Mean Corpuscular HGB Conc 32.3 % (32.0-36.0); Mean Corpuscular Hemoglobin 30.1 pg (27.0-34.0); Mean Corpuscular Volume 93.3 fL (80.0-100.0); Mean Platelet Volume 8.1 fL (7.0-11.0); Mono # (Auto) 0.3 th/mm3 (0.0-0.9); Mono % (Auto) 8.3 % (0.0-8.0); Neut # (Auto) 2.6 th/mm3 (1.8-7.7); Neut % (Auto) 63.5 % (16.0-70.0); Platelet Count 81 th/mm3 (150-450); Red Blood Count 3.19 mil/mm3 (4.50-5.90); Red Cell Distribution Width 18.3 % (11.6-17.2); White Blood Count 4.1 th/mm3 (4.0-11.0)
[2018-03-31 07:16] LABS: Calcium 7.7 mg/dL (8.5-10.1); Carbon Dioxide 23.6 meq/L (21.0-32.0); Potassium 4.6 meq/L (3.5-5.1)
[2018-03-31] MEDS: Carvedilol 6.25 MG Tablet PO SCH (08:09)
[2018-03-31] MEDS: Senna/Docusate Sodium 8.6/50 MG Tablet PO SCH (08:09)
[2018-03-31] MEDS: Ferrous Sulfate 325 MG Tablet PO SCH (08:09)
[2018-03-31] MEDS: Docusate Sodium 100 MG Capsule PO SCH (08:10)
[2018-03-31] MEDS: predniSONE 20 MG Tablet PO SCH (08:10)
[2018-03-31] MEDS: Furosemide 20 MG Tablet PO SCH (08:10)
[2018-03-31] MEDS: Polyethylene Glycol 3350 17 GM Packet PO SCH (08:11)
[2018-03-31] MEDS: Nystatin 100,000 UNITS/GM Powder 15 GM Bottle TOPICAL SCH (08:11)
[2018-03-31] MEDS ORDERED: amLODIPine 5 MG Tablet PO SCH (09:00)
[2018-03-31] MEDS ORDERED: Sodium Chloride 0.9% 2 ML Flush PRN IV.FLUSH (09:21)
[2018-03-31] MEDS: Acetaminophen 325 MG Tablet PO PRN (10:18)
--- NOTE | 2018-03-31 11:22 | P.PN ---
Subjective Interval history: The patient reports that he did not sleep well. Blood pressure was higher. He is anxious to go home. Taking oral intake well. Denies any chest pain, shortness of breath with oxygen in place, cough or sputum production. Bowels are moving. Urine output is good. Active Medications Generic Name Dose Route Start Last Admin Trade Name Freq PRN Reason Stop Dose Admin Acetaminophen 650 mg 03/29/18 05:10 03/31/18 10:18 Tylenol PO 650 mg Q4H PRN Administration Temp > 100.4/ PAIN 1-5 Al Hydroxide/Mg Hydroxide 30 ml 03/26/18 13:03 Milk Of Magnesia Liq PO Q12H PRN Mild Constipation Amlodipine Besylate 5 mg 03/31/18 09:00 03/31/18 08:09 Norvasc PO 5 mg DAILY JAQUI Administration Azithromycin 500 mg 03/31/18 13:00 Zithromax PO Q24H JAQUI Bisacodyl 10 mg 03/26/18 13:03 Dulcolax Supp RECTAL DAILY PRN SEVERE CONSITIPATION Carvedilol 6.25 mg 03/26/18 13:45 03/31/18 08:09 Coreg PO 6.25 mg BID JAQUI Administration Clonidine HCl 0.1 mg 03/30/18 08:45 03/31/18 04:58 Catapres PO 0.1 mg Q8HR PRN Administration SBP > 165 Docusate Sodium 100 mg 03/28/18 09:00 03/31/18 08:10 Colace PO 100 mg BID JAQUI Administration Duloxetine HCl 30 mg 03/27/18 09:00 Cymbalta PO DAILY JAQUI Enoxaparin Sodium 30 mg 03/26/18 15:00 03/30/18 14:10 Lovenox Inj SQ 30 mg Q24H JAQUI Administration Ferrous Sulfate 325 mg 03/28/18 09:00 03/31/18 08:09 Ferosul PO 325 mg BID JAQUI Administration Fluticasone/Vilanterol 1 puff 03/27/18 09:00 03/31/18 08:08 Breo Ellipta 100/25 Mcg Inh INH 1 puff DAILY JAQUI Administration Furosemide 20 mg 03/27/18 09:00 03/31/18 08:10 Lasix PO 20 mg DAILY JAQUI Administration Gabapentin 300 mg 03/26/18 21:00 03/30/18 21:35 Neurontin PO 300 mg HS JAQUI Administration Cefepime HCl 2,000 mg/ Sodium 100 mls @ 200 mls/hr 03/26/18 20:00 03/31/18 00 :46 Chloride IV.SIG Infused Q24H JAQUI Infusion Linezolid 300 mls @ 300 mls/hr 03/26/18 20:00 03/31/18 09:52 Zyvox 600 Mg Premix IV.SIG Infused Q12H JAQUI Infusion Lactulose 30 ml 03/26/18 13:00 Lactulose Liq PO DAILY PRN SEVERE CONSITIPATION Levothyroxine Sodium 150 mcg 03/27/18 06:00 03/31/18 04:59 Synthroid PO 150 mcg DAILY@0600 JAQUI Administration Losartan Potassium 50 mg 03/28/18 09:00 03/31/18 08:10 Cozaar PO 50 mg DAILY JAQUI Administration Mirtazapine 30 mg 03/26/18 21:00 03/30/18 21:45 Remeron Soltab Odt PO 30 mg HS JAQUI Administration Nystatin 1 applicatio 03/30/18 10:00 03/31/18 08:11 Mycostatin Powder TOPICAL 1 applicatio BID JAQUI Administration Ondansetron HCl 4 mg 03/26/18 13:03 Zofran Inj IV.PUSH Q6H PRN NAUSEA OR VOMITING Pantoprazole Sodium 40 mg 03/26/18 21:00 03/30/18 21:41 Protonix PO 40 mg HS JAQUI Administration Polyethylene Glycol 17 gm 03/27/18 09:00 03/31/18 08:11 Miralax PO Not Given DAILY JAQUI Potassium Chloride 10 meq 03/27/18 09:00 03/31/18 08:10 Klor-Con 10 PO 10 meq DAILY JAQUI Administration Prednisone 20 mg 03/27/18 09:00 03/31/18 08:10 Deltasone PO 20 mg DAILY JAQUI Administration Senna/Docusate Sodium 1 tab 03/26/18 21:00 03/31/18 08:09 Aurelia-Colace PO 1 tab BID JAQUI Administration Sennosides 17.2 mg 03/26/18 13:03 Senokot PO Q12H PRN Moderate Constipation Sodium Chloride 2 ml 03/31/18 21:00 Ns Flush IV.FLUSH BID JAQUI Sodium Chloride 2 ml 03/31/18 09:21 Ns Flush IV.FLUSH PRN PRN FLUSH AFTER USING IV ACCESS Tamsulosin HCl 0.4 mg 03/26/18 21:00 03/30/18 21:35 Flomax PO 0.4 mg HS JAQUI Administration Physical Exam Vital signs: Vital Signs 03/30/18 11:54 03/30/18 12:00 03/30/18 15:43 Temperature 97.1 F L 97.4 F L Pulse Rate 61 61 Respiratory Rate 19 18 Blood Pressure 190/89 H 170/78 H Pulse Oximetry 95 96 95 03/30/18 16:00 03/30/18 20:00 03/30/18 23:55 Temperature 98.2 F 98 F 98.2 F Pulse Rate 59 L 58 L 63 Respiratory Rate 20 18 18 Blood Pressure 190/90 H 174/78 H 168/82 H Pulse Oximetry 96 92 L 94 L 03/31/18 00:00 03/31/18 04:00 03/31/18 08:00 Temperature 98.3 F 97.0 F L Pulse Rate 69 67 73 Respiratory Rate 18 18 Blood Pressure 182/88 H 166/70 H Pulse Oximetry 94 L 93 L 03/31/18 10:52 Temperature Pulse Rate Respiratory Rate Blood Pressure Pulse Oximetry 95 Intake & Output 03/30/18 03/31/18 03/31/18 18:59 06:59 18:59 Intake Total 550 / 550 640 / 640 300 / 300 Balance 550 / 550 640 / 640 300 / 300 Weight 252 lb 3.341 oz Intake: IV 550 / 550 400 / 400 300 / 300 Azithromycin Inj 500 MG In NS 250 / 250 Inj 250 ML @ 250 mls/hr IV.SIG Q24H JAQUI Rx#:[id number] Maxipime Inj 2,000 MG In NS Inj 100 / 100 100 ML @ 200 mls/hr IV.SIG Q24H JAQUI Rx#:[id number] Zyvox 600 mg Premix 300 ML @ 300 / 300 300 / 300 300 / 300 300 mls/hr IV.SIG Q12H JAQUI Rx#: [id number] Oral 240 / 240 Other: # Urine Diapers 3 Date of Last Bowel Movement 03/27/18 # Bowel Movements 0 - Constitutional no acute distress - Routine Respiratory Exam Present: CTA bilaterally - Routine Cardiovascular Exam Present: RRR - Routine Abdominal Exam Comments: Obese, soft, nontender, bowel sounds present Results - Labs CBC & Chem 7: 12/01/18 04:44 03/31/18 04:44 Laboratory Results - last 24 hr 03/31/18 03/31/18 04:44 04:44 WBC 4.1 RBC 3.19 L Hgb 9.6 L Hct 29.8 L MCV 93.3 MCH 30.1 MCHC 32.3 RDW 18.3 H Plt Count 81 L MPV 8.1 Prelim Diff (Auto) Slide review pending Neut % (Auto) 63.5 Lymph % (Auto) 27.4 [place] % (Auto) 8.3 H Eos % (Auto) 0.2 Baso % (Auto) 0.6 Neut # (Auto) 2.6 Lymph # (Auto) 1.1 [place] # (Auto) 0.3 Eos # (Auto) 0.0 Baso # (Auto) 0.0 WBC Differential . Diff Scan Auto diff confirmed Differential Comment . Hematology Comments Sodium 144 Potassium 4.6 Chloride 111 H Carbon Dioxide 23.6 Anion Gap 9 BUN 46 H Creatinine 2.08 H Estimated GFR 31 L Random Glucose 97 Calcium 7.7 L Microbiology 03/26/18 11:50 Blood - Peripheral Aerobic Blood Culture - Final Staphylococcus capitis-capitis 03/26/18 11:50 Blood - Peripheral Anaerobic Blood Culture - Final No growth in 5 days 03/26/18 12:05 Blood - Peripheral Aerobic Blood Culture - Final No growth in 5 days 03/26/18 12:05 Blood - Peripheral Anaerobic Blood Culture - Final No growth in 5 days Assessment and Plan - Assessment (1) Pneumonia Code(s): J18.9 - Pneumonia, unspecified organism Status: Acute Plan: I spoke with Dr. Arnaldo Hernandez, infectious disease. She recommends repeat chest x-ray today. If improvement, will likely discharge home with no antibiotics. (2) Chronic obstructive pulmonary disease Code(s): J44.9 - Chronic obstructive pulmonary disease, unspecified Status: Chronic Plan: The patient had an exacerbation due to the pneumonia. Respiratory status improving as pneumonia resolves. Will continue with prednisone and wean slowly as an outpatient. Continue with nebulizer treatments and Breo. Will wean oxygen slowly as an outpatient. He will need to be discharged home on continuous oxygen at 2 L/min per nasal cannula (3) Hypertension Code(s): I10 - Essential (primary) hypertension Status: Chronic Plan: Blood pressure is elevated when patient more anxious. I have increased his amlodipine to 5 mg daily. Continue with antihypertensive therapy. Provide clonidine as needed for elevated blood pressure readings. (4) Hypothyroidism Code(s): E03.9 - Hypothyroidism, unspecified Status: Chronic Plan: Continue with current dosage of levothyroxine. (5) Chronic kidney disease, stage III (moderate) Code(s): N18.3 - Chronic kidney disease, stage 3 (moderate) Status: Chronic Plan: Renal function stable. Will follow. (6) Anemia due to chronic kidney disease Code(s): N18.9 - Chronic kidney disease, unspecified; D63.1 - Anemia in chronic kidney disease Status: Chronic Plan: H&H are stable status post transfusion of 2 units of packed red blood cells. Cont ferrous sulfate 325 mg twice a day. We will continue to monitor H&H. Patient will resume Procrit as an outpatient if needed. (7) GERD (gastroesophageal reflux disease) Code(s): K21.9 - Gastro-esophageal reflux disease without esophagitis Status: Chronic Plan: Continue PPI therapy (8) Adjustment disorder with mixed anxiety and depressed mood Code(s): F43.23 - Adjustment disorder with mixed anxiety and depressed mood Status: Chronic Plan: Continue with current medication. Mood is good at this time. (9) At high risk for deep venous thrombosis Code(s): Z91.89 - Other specified personal risk factors, not elsewhere classified Status: Acute Plan: Continue with subcutaneous Lovenox. (10) Tinea cruris Code(s): B35.6 - Tinea cruris Status: Acute Plan: Will treat with Mycostatin powder - Plan Discharge Planning: Likely discharge home later today. (1) Pneumonia Qualifiers: Pneumonia type: due to unspecified organism Laterality: bilateral Lung location: unspecified part of lung Qualified Code(s): J18.9 - Pneumonia, unspecified organism (2) Chronic obstructive pulmonary disease Qualifiers: COPD type: COPD with acute exacerbation Qualified Code(s): J44.1 - Chronic obstructive pulmonary disease with (acute) exacerbation (3) Hypertension Qualifiers: Hypertension type: essential hypertension Qualified Code(s): I10 - Essential (primary) hypertension (4) Hypothyroidism Qualifiers: Hypothyroidism type: postoperative Qualified Code(s): E89.0 - Postprocedural hypothyroidism (6) Anemia due to chronic kidney disease Qualifiers: Chronic kidney disease stage: stage 3 (moderate) Qualified Code(s): N18.3 - Chronic kidney disease, stage 3 (moderate); D63.1 - Anemia in chronic kidney disease (7) GERD (gastroesophageal reflux disease) Qualifiers: Esophagitis presence: without esophagitis Qualified Code(s): K21.9 - Gastro- esophageal reflux disease without esophagitis
[2018-03-31] MEDS ORDERED: Azithromycin 250 MG Tablet PO SCH (13:00)
[2018-03-31 13:23] VITALS: O2SAT 94
--- NOTE | 2018-03-31 14:15 | P.PNID ---
Subjective Remarks: just 1/4 + bloodc lx bottles Staph capitis Pt is doing better c/o poor sleep On 2-3 L NC O2 (baseline) CXR reviwed, compared with old: clearing of infiltrates noted Antibiotics: cefepime zyvox azithro Allergies/Adverse Reactions: Allergies hydrocodone Allergy (Severe, Verified 03/26/18 10:45) Anaphylaxis adhesive Allergy (Unknown, Verified 03/26/18 10:45) Anaphylaxis pt to pacu with redness noted to skin per search director pt appears to have allergy to adhesive tape spoke with pt, pt aware md made aware per search director, skin intact, per search director site to l chest area improving after pads removed Objective Vital Signs 03/30/18 15:43 03/30/18 16:00 03/30/18 20:00 Temperature 98.2 F 98 F Pulse Rate 59 L 58 L Respiratory Rate 20 18 Blood Pressure 190/90 H 174/78 H Pulse Oximetry 95 96 92 L 03/30/18 23:55 03/31/18 00:00 03/31/18 04:00 Temperature 98.2 F 98.3 F Pulse Rate 63 69 67 Respiratory Rate 18 18 Blood Pressure 168/82 H 182/88 H Pulse Oximetry 94 L 94 L 03/31/18 08:00 03/31/18 10:52 03/31/18 12:00 Temperature 97.0 F L 98.3 F Pulse Rate 73 55 L Respiratory Rate 18 18 Blood Pressure 166/70 H 164/73 H Pulse Oximetry 93 L 95 94 L Intake & Output 03/30/18 03/31/18 03/31/18 18:59 06:59 18:59 Intake Total 550 / 550 640 / 640 300 / 300 Balance 550 / 550 640 / 640 300 / 300 Weight 114.4 kg Intake: IV 550 / 550 400 / 400 300 / 300 Azithromycin Inj 500 MG In NS 250 / 250 Inj 250 ML @ 250 mls/hr IV.SIG Q24H JAQUI Rx#:[id number] Maxipime Inj 2,000 MG In NS Inj 100 / 100 100 ML @ 200 mls/hr IV.SIG Q24H JAQUI Rx#:[id number] Zyvox 600 mg Premix 300 ML @ 300 / 300 300 / 300 300 / 300 300 mls/hr IV.SIG Q12H JAQUI Rx#: [id number] Oral 240 / 240 Other: # Urine Diapers 3 Date of Last Bowel Movement 03/27/18 # Bowel Movements 0 03/26/18 11:50 Blood - Peripheral Aerobic Blood Culture - Final Staphylococcus capitis-capitis 03/26/18 11:50 Blood - Peripheral Anaerobic Blood Culture - Final No growth in 5 days 03/26/18 12:05 Blood - Peripheral Aerobic Blood Culture - Final No growth in 5 days 03/26/18 12:05 Blood - Peripheral Anaerobic Blood Culture - Final No growth in 5 days 03/28/18 17:50 Urine - Random Urine Streptococcus pneumoniae Antigen (M - Final Presumptive negative for streptococcus pneumoniae antigen, suggesting no current or recent infection. Infection due to Streptococcus pneumoniae cannot be ruled out since the antigen present in the sample may be below the detection limit of the test. 03/28/18 17:50 Urine - Random Urine Legionella Antigen - Final Presumptive negative for Legionella pneumophila serogroup 1 antigen in urine, suggesting no recent or recurrent infection. Infection due to Legionella cannot be ruled out since other serogroups and species may cause disease, antigen may not be present in urine in early infection, and the level of antigen present in the urine may be below the detection limit of the test. Lab - Hematology Results 03/30/18 03/31/18 06:33 04:44 WBC 4.6 4.1 RBC 3.26 L 3.19 L Hgb 10.0 L 9.6 L Hct 30.1 L 29.8 L MCV 92.4 93.3 MCH 30.7 30.1 MCHC 33.2 32.3 RDW 19.5 H 18.3 H Plt Count 95 L 81 L MPV 7.8 8.1 Prelim Diff (Auto) Slide review pending Slide review pending Neut % (Auto) 65.9 63.5 Lymph % (Auto) 25.8 27.4 [place] % (Auto) 7.5 8.3 H Eos % (Auto) 0.1 0.2 Baso % (Auto) 0.7 0.6 Neut # (Auto) 3.0 2.6 Lymph # (Auto) 1.2 1.1 [place] # (Auto) 0.3 0.3 Eos # (Auto) 0.0 0.0 Baso # (Auto) 0.0 0.0 WBC Differential . . Diff Scan Auto diff confirmed Auto diff confirmed Differential Comment . . Platelet Estimate Low L Platelet Morphology Normal Basophilic Stippling Moderate H Hematology Comments Lab - Chemistry Results 03/31/18 04:44 Sodium 144 Potassium 4.6 Chloride 111 H Carbon Dioxide 23.6 Anion Gap 9 BUN 46 H Creatinine 2.08 H Estimated GFR 31 L Random Glucose 97 Calcium 7.7 L Imaging: ITS Impressions Chest CT 03/26/18 00:00 CONCLUSION: 1. Cardiomegaly. 2. Consolidative changes in the lung bases. 3. The nodules identified appear to represent a combination of fluid within the fissure on the right and a dilated pulmonary artery on the left. Physical Exam: GENERAL: NAD. Morbidly obese looks sourav today SKIN: Warm and dry. HEAD: Atraumatic. Normocephalic. EYES: Pupils equal and round. No scleral icterus. No injection or drainage. ENT: No nasal bleeding or discharge. Mucous membranes pink and moist. NECK: Trachea midline. No JVD. CARDIOVASCULAR: Regular rate and rhythm. RESPIRATORY: No accessory muscle use. Clear to auscultation. Breath sounds diminished bilaterally. GASTROINTESTINAL: Abdomen soft, non-tender, nondistended. Hepatic and splenic margins not palpable. MUSCULOSKELETAL: Extremities without clubbing, cyanosis, + trace edema. No obvious deformities. NEUROLOGICAL: Awake and alert. Non focal glrossly Normal speech. PSYCHIATRIC: Appropriate mood and affect; Assessment and Plan - Plan PNA, b/l infiltrates COPD exacerbation ARF on CKD: resolved Low grade bacteremia ? significance Presented with respmsm, low grade bacteremia, coag negative staph: doubt clinical significance dc abx OK to dc home mary hernandez caregiver
--- NOTE | 2018-03-31 14:18 | XR ---
EXAM DATE: 03/31/2018 2:07 PM EST AGE/SEX: 78 years / Male INDICATIONS: Shortness of breath. CLINICAL DATA: This is the patient's initial encounter. Patient reports that signs and symptoms have been present for 1 day and indicates a pain score of 0/10. MEDICAL/SURGICAL HISTORY: Chronic obstructive pulmonary disease. None. COMPARISON: [facility] [place], CT CHEST W/O CONTRAST, 03/26/2018. . FINDINGS: The heart is enlarged. Scattered bibasilar nodular infiltrates are again noted. Degenerative changes are noted throughout the thoracic spine. CONCLUSION: 1. Cardiomegaly. 2. Scattered bibasilar nodular infiltrates. 3. Degenerative changes throughout the thoracic spine. Electronically signed by: bC Mart MD 03/31/2018 2:16 PM EST
[2018-03-31] MEDS: Enoxaparin Inj 30 MG/0.3 ML Syringe SQ SCH (15:49)
[2018-03-31 16:48] VITALS: BP 181/83; PULSE 57; TEMP 98
--- NOTE | 2018-03-31 17:12 | P.PNADD ---
Addendum to Inpatient Note Additional information: CXR dw Dr Mart Those nodules are unchanged and previously evaluated by CT: vessels and fluid in fissure Pt can be d/c d home from [facility]
[2018-03-31] MEDS ORDERED: Sodium Chloride 0.9% 2 ML Flush BID IV.FLUSH SCH (21:00)
== END 2018-03-31 18:11 | disposition home health service (06) ==
LOC: NEPE 10:43 → NEDA 13:01 → N04 18:16
PROVIDERS: ADMIT Family Medicine; ATTEND Family Medicine